=== PATIENT | male | born 1975 | race Caucasian/White ===

== ENCOUNTER 2019-10-25 14:04 | Emergency (ER) | payer OTHER, SELFPAY ==
[2019-10-25 14:05] VITALS: BP 129/71; PULSE 91; RESP 16; TEMP 37; O2SAT 97; BMI 31.7
--- NOTE | 2019-10-25 14:43 | ED.DCSUM_ITS ---
- ER Visit Summary Date of Service: 10/25/19 Chief Complaint: Lacerations to both feet and dorsum of his left hand History of Present Illness: The patient is a 44 M past medical history of depression and asthma. Tetanus is not up-to-date is been greater than 10 years. Patient was in the shower getting a shower realized the shower door was off track. When he went to fix it the door fell off the tract shattered on the floor the shower lacerating the dorsum of his left hand and both feet. No other injuries. This occurred within the last several hours. He denies any other complaints. Physical Examination: Middle-aged male no acute distress. Vital signs are stable afebrile. H EENT exam unremarkable. Neck nontender. No lymphadenopathy. No trauma. Lungs clear to auscultation. Heart regular rhythm no murmur. Abdomen soft nontender. Back nontender. Neurologically is awake alert with no focal motor or sensory deficits. The dorsum of his left hand has 2 ellipse type of lacerations on the dorsum of the hand over the extensor tendon of the left long and index fingers. He has full flexion extension to all digits of the left hand. He can extend against resistance. There is no signs of extensor tendon injury. There is small blood but no active bleeding or pulsa tile bleeding. There is no obvious foreign bodies. Right upper extremity is unremarkable. He is superficial lacerations to his feet on the pads and the dorsum. No obvious foreign bodies. Feet are neurovascular intact. These will not need to be repaired. Just cleaned and dressed. Test Results: None Emergency Department Course and Treatment: Patient and his discussed x-rays I do not feel that they be beneficial and he and his are comfortable those not being done. The wounds will be explored thoroughly looking for any signs of glass. A do not feel there is any foreign bodies. Laceration repair: Left hand dorsum. First laceration elliptical approximately 2-1/2 cm. Locally anesthetized with Xylocaine. Cleaned with Shur-Clens washed and explored. Irrigated. Closed using #5 5-0 Ethilon simple interrupted sutures. On the radial side of the extensor tendon of the left long finger there was a partial laceration of less than a quarter of the tendon. He had full range of motion. I did discuss this with both he and his . I did not see or feel any signs of foreign body or glass. Left hand dorsum second laceration repair. Elliptical. Proximately 3 cm. Local anesthetized with Xylocaine. Cleaned with Shur-Clens. Washed and explored. Irrigated. Closed using simple interrupted 5-0 Ethilon sutures. Treatment Plan: Wound care. Watch for any signs of infection or foreign body is seen return. Suture removal in 10 days. Keflex 1 pill 4 times a day for 5 days. Disposition: Discharge Impression: Left hand lacerations x2 Laceration repair to 2.5 cm left hand repaired by ER Left hand laceration 4 cm. Repair by ER Partial extensor tendon laceration of the left long finger. Superficial feet lacerations no repair This note was generated with [employer] dictation software. It may contain incorrect words, spelling, and punctuation that were not noted in review of the chart prior to signing ED Disposition - Plan for ED Patient: Referrals: Anmol Raza MD [Primary Care Provider] -
[2019-10-25] MEDS: Diphth,Pertuss(Acell),Tet Vac 0.5 ML Vial IM (14:48)
--- NOTE | 2019-10-25 16:11 | ED.DEP ---
ED Disposition - Plan for ED Patient: Disposition: Home or Assisted Living Instructions: LACERATION, Hand Prescriptions: Cephalexin [Keflex] 500 mg PO Q6 #20 cap Prescription Printed Referrals: Mary Cisneros DO [STAFF PHYSICIAN] - 10 Day for suture removal Additional Instructions: Ice elevate left hand to decrease pain and swelling. Tylenol and Motrin for pain. Keflex 1 pill 4 times a day for the next 5 days. Watch for any signs of infection such as pus, redness, red streaks or fever is seen return. I do not see any signs of foreign body at this time. Your left long finger has a very small laceration of the extensor tendon. If you would notice loss of extension of your left long finger this needs followed up and will need to be repaired. Suture removal in 10 days.
[2019-10-25 16:47] VITALS: RESP 16
--- NOTE | 2019-10-25 16:48 | ED.RN ---
REVIEWED D/C INSTRUCTIONS, FOLLOW UP CARE, PRESCRIPTION, AND S/S THAT WOULD WARRANT A RETURN TO THE ED WITH PT. PT VERBALIZED AN UNDERSTANDING AND DENIES FURTHER QUESTIONS FOR THIS RN. PT SKIN P/W/D, RESP EVEN AND UNLABORED, PT A&O X 3, NO DISTRESS NOTED. PT ASSISTED OUT OF ED IN WHEELCHAIR.
== END 2019-10-25 16:49 | disposition home or self-care (01) ==
PROVIDERS: Emergency Provider Emergency Medicine; Family Provider Family Medicine; PCP Family Medicine
DX: S66.323A Laceration of extensor muscle, fascia and tendon of left middle finger at wrist and hand level, initial encounter (principal); S61.412A Laceration without foreign body of left hand, initial encounter; S91.312A Laceration without foreign body, left foot, initial encounter; S91.311A Laceration without foreign body, right foot, initial encounter; W25.XXXA Contact with sharp glass, initial encounter; Y93.89 Activity, other specified; J45.909 Unspecified asthma, uncomplicated; F32.9 Major depressive disorder, single episode, unspecified
CPT/HCPCS: 12002; 90715; 99283; A4216

== ENCOUNTER 2021-04-23 22:24 | Emergency (ER) | payer OTHER, SELFPAY ==
[2021-04-23 22:25] VITALS: BP 139/87; PULSE 82; RESP 24; TEMP 36.3; O2SAT 96; BMI 31.7
--- NOTE | 2021-04-23 22:41 | EDS_ITS ---
HPI History of Present Illness Chief Complaint: Abd Pain Informant: patient and family Narrative Narrative: 46-year-old male states that he has had an umbilical hernia for some time. Tonight he was doing some strenuous activity and developed severe umbilical pain. He states that hernia appears different. It is hard. He cannot find a position of comfort. [facility] Medical History (Updated 04/23/21 @ 22:[address] Kavin Brian DO) Depression Umbilical hernia Home Medications budesonide-formoterol 2 puff IH BID 10/25/19 [History Last Taken Unknown] cephalexin 500 mg PO Q6 #20 cap 10/25/19 [Rx Last Taken Unknown] cholecalciferol (vitamin D3) 2,000 unit PO DAILY 10/25/19 [History Last Taken Unknown] duloxetine 60 mg PO DAILY 10/25/19 [History Last Taken Unknown] lamotrigine 200 mg PO DAILY 10/25/19 [History Last Taken Unknown] Allergy/AdvReac Type Severity Reaction Status Date / Time No Known Allergies Allergy Verified 10/25/19 14:07 Social History (Updated 04/23/21 @ 22:[address] Kavin Brian DO) Smoking Status: Never smoker substance use type: does not use ROS ROS ED Constitutional Constitutional ED: Denies chills or weight loss Eyes Eyes: Denies change in vision or diplopia ENT ENT ED: Denies ear pain, rhinorrhea or sore throat Cardiovascular Cardiovascular: Denies chest pain, orthopnea, palpitations or racing heartbeat Respiratory/Chest Respiratory/Chest: Denies cough, dyspnea or orthopnea Gastrointestinal Gastrointestinal: Reports abdominal pain; Denies diarrhea, nausea or vomiting Genitourinary Genitourinary ED: Denies dysuria, hematuria or urinary frequency Musculoskeletal Musculoskeletal: Denies arthralgias or myalgias Integumentary Denies abscess or rash Neurologic Neurologic: Denies headache(s) or weakness Psychiatric Psychiatric: Denies anxiety, depression, suicidal ideation or suicidal thoughts Endocrine Endocrinology: Denies polydipsia, polyphagia or polyuria Allergic/Immunologic Allergic/Immunologic ED: Denies mouth swelling, tongue swelling or urticaria EXAM Physical Exam Const Vital Signs: 04/23/21 22:25 Temperature 97.4 F L Temperature Source Temporal Pulse Rate 82 Respiratory Rate 24 H Blood Pressure 139/87 H Blood Pressure Mean 104 Pulse Ox 96 Oxygen Delivery Method Room Air Positive well nourished and well developed General Appearance ED: well developed HEENT Reports normocephalic, head/scalp atraumatic and moist mucous membranes Eyes PERRL and EOMs intact bilaterally Neck no lymphadenopathy, supple and no JVD Resp normal respiratory effort and clear to auscultation bilaterally Cardio regular rate, regular rhythm and no murmurs GI GI Narrative: There is a umbilical hernia with purplish discoloration. It is firm. I am not able to easily reduce it at the bedside at this time. Palpation: soft Back/Spine no CVA tenderness and normal ROM Extremity normal to inspection General Extremety ED: Negative for edema General Extremity: Negative for edema Neuro oriented x3 and CN's II-XII intact bilaterally Sensorium / Orientation: alert Motor Exam: strength 5/5 throughout Psych mental status grossly normal Mood & Affect: Negative for depressed or tearful Skin no rashes or lesions noted and no wounds MDM MDM MDM Narrative Medical decision making narrative: Patient was given Dilaudid and Ativan and Zofran. After this I attempted to reduce the hernia. Hernia was reduced with gentle direct pressure. I will order abdominal binder. Patient will be referred to general surgery. Discharge Plan Triage Chief Complaint: Abd Pain ED Provider: Kavin Brian Dx/Rx/DC Orders Clinical Impression: Hernia, umbilical Instructions: ED Hernia (Adult) Prescriptions: No Action budesonide-formoterol 6 GM HFA aerosol inhaler 2 puff IH BID RF: 0 cholecalciferol (vitamin D3) 2,000 UNIT capsule 2,000 unit PO DAILY RF: 0 lamotrigine 200 MG tablet extended release 24hr 200 mg PO DAILY RF: 0 duloxetine 60 MG capsule, delayed rel sprinkle 60 mg PO DAILY RF: 0 cephalexin 500 MG capsule 500 mg PO Q6 Qty: 20 RF: 0 Primary Care Provider: Anmol Raza Referrals: Markus Hooper MD [STAFF PHYSICIAN] - As soon as possible Anmol Raza MD [Primary Care Provider] - Disposition Disposition: Home, Self Care
[2021-04-23] MEDS: Ondansetron 4 MG/2 ML Vial IV (22:47)
[2021-04-23] MEDS: LORazepam 2 MG/ML Syringe 1 MG IV (22:49)
[2021-04-23] MEDS: HYDROmorphone 1 MG/ML Syringe IV (22:50)
[2021-04-23 23:43] VITALS: BP 121/82; PULSE 76; RESP 14; O2SAT 93
== END 2021-04-23 23:44 | disposition home or self-care (01) ==
LOC: ED 23:16
PROVIDERS: Emergency Provider Emergency Medicine; PCP Family Medicine
DX: K42.9 Umbilical hernia without obstruction or gangrene (principal)
CPT/HCPCS: 96374; 96375; 99283; A4216; J2405

== ENCOUNTER 2021-05-10 07:36 | Day surgery (SDC) | payer OTHER, SELFPAY ==
[2021-04-29 14:54] VITALS: BMI 31.7
--- NOTE | 2021-05-10 07:21 | EKG12_ITS ---
Test Reason : PRE OP Blood Pressure : / mmHG Vent. Rate : 088 BPM Atrial Rate : 088 BPM P-R Int : 166 ms QRS Dur : 086 ms QT Int : 360 ms P-R-T Axes : 054 074 049 degrees QTc Int : 435 ms Normal sinus rhythm Normal ECG No previous ECGs available Confirmed by GIULIANO GARCIA, CARLOS MANUEL ([id number]), makeup editor GURMEET VARELA ([id number]) on 05/14/2021 8:02:23 AM Referred By: Nahomy Ricketts Confirmed By:CARLOS MANUEL NOBLES MD
[2021-05-10] MEDS: Lactated Ringers 1,000 ML 100 ML IV ×2 (08:10→09:56)
[2021-05-10 08:15] VITALS: BP 122/80; PULSE 82; RESP 14; TEMP 36.1; O2SAT 96; BMI 32.4
--- NOTE | 2021-05-10 08:18 | HP.PCM_ITS ---
History and Physical Date of Admission: 05/10/21 Date of Service: 04/29/21 MR#:[id number] Acct:[id number] Name: UZMA WATERS :1975 Age/Sex: 46/M Rep #:[id number] Provider:Dr. Nahomy Ricketts MD Location:[facility] Status:Signed Intake Vital Signs 04/29/21 14:53 04/29/21 14:54 Height 5 ft 9 in Weight: 227 lb 2 oz BMI 33.5 31.7 BP 121/87 H Blood Pressure Location Rt brachial Position Sitting Respiration 18 Pulse 101 H Pulse Source NIBP Temp 98.1 F Temp Source Temporal Pulse Oximetry (%) 96 Oxygen Delivery Method room air Intake Visit Reasons: Hernia Chief Complaint: umbilical hernia Cafeteria Cashier Required: No Is patient in pain?: No Allergies No Known Allergies Allergy (Verified 04/29/21 14:53) Medications budesonide-formoterol 2 puff IH BID 10/25/19 [History Confirmed 04/29/21] cholecalciferol (vitamin D3) 2,000 unit PO DAILY 10/25/19 [History Confirmed 04/29/21] duloxetine 60 mg PO DAILY 10/25/19 [History Confirmed 04/29/21] lamotrigine 200 mg PO DAILY 10/25/19 [History Confirmed 04/29/21] PFSH Medical History (Updated 04/29/21 @ 14:51 by Mila Miles) Depression Sleep apnea Umbilical hernia Surgical History (Updated 04/29/21 @ 14:51 by Mila Miles) History of adenoidectomy History of sinus surgery Family History (Updated 04/29/21 @ 14:52 by Mila Miles) Father Diabetes Cancer esophageal Mother Diabetes Hypertension Thyroid disorder Rheumatoid arthritis Social History (Updated 04/23/21 @ 22:[address] Kavin Brian DO) Smoking Status: Never smoker substance use type: does not use HPI HPI HPI: UZMA WATERS, is a 46 M who presents to the office today for umbilical hernia. Patient states he has noticed for about 3 years but has not caused him issues if he was not touching it. Patient has reduced it previously but it was quite tender so he stopped doing that. Patient did go to the ER on 04/23/2021 due to increased pain at the umbilicus patient states he was lifting something heavy that day. Patient denies any nausea or vomiting during that time. In the ER they were able to reduce it. Patient has been wearing abdominal binder since the ER visit. ROS General General: No weight change or fatigue Psych Psychiatric: Yes depression; No anxiety Resp Respiratory: No shortness of breath, Yes sleep apnea, No cough, No COPD, Yes asthma, No emphysema and No wheezing Gastro Gastrointestinal: Yes abdominal pain, No nausea or vomiting, No diarrhea, No constipation, No blood in stool, No acid reflux, No hemorrhoids, No ulcers, No gallbladder problem and No black,tarry stools Exam Const General: cooperative, healthy appearing, comfortable and no acute distress Neck Neck: normal visual inspection Resp Effort & Inspection: normal respiratory effort Cardio Rate: regular rate GI Inspection: non-distended Palpation: soft, no guarding, hernia (Umbilical less than 1 cm) and tender (Mild at umbilical hernia when reducing) Skin General: no rashes or lesions noted Neuro General: patient oriented x3 Psych Affect: normal affect COVID (Procedure Consent) Procedure Criteria Procedure Criteria: Yes Elective The surgeon/proceduralist and patient have discussed in detail the risk of exposure to and/or potential harm posed by the COVID-19 virus with having a surgery/procedure at this time versus the risk of delaying the surgery/procedure. It is not possible to know either the risk of delaying the surgery or procedure or chance of getting an infection with perfect accuracy, but a joint decision was made between the patient and the surgeon/proceduralist to proceed at this time with the scheduled surgery/procedure as indicated on the consent form. Assessment and Plan Assessment and Plan (1) Hernia, umbilical: Status: Acute Plan - Dr. Nahomy Ricketts MD: Plan to do an umbilical herniorrhaphy with mesh. Reviewed the procedure with the patient including the risks, including but not limited to infection, bleeding, injury to the small bowel, and recurrence. All questions were answered. Patient no further question this time. Nahomy Ricketts M.D. Pager: [phone] [facility] [address] [place] [address], [address] [place] [address] Office: [phone] Coding Level of Care Code Off vis,new,level 3 Diagnoses Hernia, umbilical K42.9 04/30/21 0800<Electronically signed by Nahomy Ricketts MD>Date Nahomy Ricketts MD
[2021-05-10 08:39] LABS: Hemoglobin 14.7 g/dL (13.0-16.5); Mean Corp Hgb Conc 32.7 g/dL (32-36); Mean Corpuscular Hgb 27.1 pg (27.0-32.0); Mean Platelet Vol. 8.4 fl (6.2-12.0); Platelet Count 343 K/mm3 (150-450); RBC Distribution Width CV 12.8 % (11.6-14.6); RBC Distribution Width SD 38.6 fl (35.1-43.9); Red Blood Count 5.42 M/mm3 (4.6-6.2); White Blood Count 7.2 K/mm3 (4.4-11.0)
[2021-05-10] MEDS: Cefazolin 2 GM in 0.9% Normal Saline 100 ML IV (08:40)
--- NOTE | 2021-05-10 09:00 | HERN_PTH ---
PATIENT: UZMA WATERS LOC[place] [facility] [place][id number] AGE/SX: 46/M ROOM: RE05/10/[address]: Dr. Nahomy Ricketts MD : 1975 BED: DIS: 05/10/2021 SPEC #: [id number] RECD: 05/10/21 10:09 STATUS: MIRA RETk #: [id number] MARIKA: 05/10/21 09:[address]: Nahomy Ricketts DEPT: SURGICAL PATHOLOGY RECD BY: Keli Wilson ENTERED: 05/10/21 13:32 SP TYPE: Hernia OTHR DR: Dr. Anmol Raza MD Tissues: HERNIA Procedures: Surgery Specimen Level II HEADER OPERATION: Umbilical hernia repair with mesh PRE-OP DIAGNOSIS: Umbilical hernia TISSUE SUBMITTED: Hernia sac MICROSCOPIC DIAGNOSIS Hernia sac: Fragments of fibroadipose and fibroconnective tissue, consistent with hernia sac. SJ:jose roberto 05/13/2021 MICROSCOPIC DESCRIPTION Slides are reviewed. GROSS DESCRIPTION Received in fixative is one container labeled with the patient's name and designated hernia sac. The specimen consists of multiple irregular fragments of glistening pink-yellow fibrofatty tissue that in aggregate measure 4 x 3 x 0.2 cm. Senior Associate sections are submitted in one cassette. / AM:jose roberto 05/10/21 TC:5 CPT: 51677
--- NOTE | 2021-05-10 09:37 | PCM.OPRPT ---
Report of Operation Date of Procedure: 05/10/21 Pre-Operative Diagnosis: Umbilical hernia reducible Post-Operative Diagnosis: Same Surgery/Procedure Performed:: Umbilical hernia repair with mesh Surgeon: Nahomy Ricketts certified executive chef: Yany Tavares Type of Anesthesia: General/Supplemental Anesthesiologist: Alvarze Davis Special Medications: Ancef 2 g IV x1 Specimen's removed: Hernia sac Estimated Blood Loss (mL): < 10 cc Fluids Replaced: Per anesthesia Description of Procedure: Patient was brought into the room placed supine on the operating table. Correct patient, procedure, site, positioning, special, was verified prior to procedure. General anesthesia was induced. The abdomen was prepped draped in usual sterile fashion. A curvilinear incision was made below the umbilicus with a 15 blade scalpel. This was deepened with electrocautery. A hemostat was used to go around the stalk of the umbilicus and Metzenbaum scissors was used to carefully divide the hernia sac from the skin of the umbilicus. The fascia around the hernia defect was cleared and abdominal adipose tissue was reduced back in the abdomen. The hernia defect measured 1.5 cm x 1.[address] hernia patch 6.4 cm diameter (Lot [id number] REF [id number]) was used. The tails of the mesh was secured laterally with 1-0 Nurolon suture. Additional 1-0 Nurolon sutures were placed to secure the superior and inferior mesh and close fascia in a [id number]. The wound was irrigated with saline. Hemostasis was assured. The skin of the umbilicus was secured to the fascia using 3-0 Vicryl suture interrupted. The incision was closed with 3-0 Vicryl subdermal interrupted sutures and the skin was closed with interrupted 4-0 Monocryl sutures. Steri-Strips and Tegaderm and OpSite were placed over the incision once sterile cotton balls were placed in the umbilicus. Patient was extubated. Patient tolerated procedure well and was taken to the postanesthesia care unit in stable condition. Grafts/Implants Used: Ventralex ST hernia patch 6.4 cm diameter (Lot [id number], REF [id number]) Complications none
[2021-05-10] MEDS: Bupivacaine Mpf 0.5% 30 ML VIAL (09:40)
--- NOTE | 2021-05-10 09:40 | EX.PCM.DISCH ---
Discharge Instructions Diet Discharge Diet: Light diet - advance as tolerated Activity May shower in (days): 5 (Keep umbilical dressing clean dry and intact for 5 days. Okay to tape off with a Ziploc bag to shower. Or lower shower and upper sponge bath.) Lifting Restrictions: no lifting >20 lbs x 2 wks, no strenuous exercise for 4 wks Additional Activity Instructions:: - Dressing / Incision Call your doctor if your incision/area has: Continuous Slow Oozing, Sudden Increased Bleeding, Increased Pain/ Swelling, Increased Redness, Foul Smelling Discharge and Swelling at the incision site Call your doctor if you observe: Fever of 101 or Higher Remove Dressing in: 5 days (After 5 days okay to remove surgical dressing. Place cotton ball or rolled up gauze in bellybutton and retape daily for 2 more days.) Cleanse incision/area with: Do not get Incision Wet (for 5 days) Additional Dressing/Incision Instructions:: Steri-Strips will fall off in 7 to 10 days, if they do not fall off okay to remove after 10 days. Follow Up Care Please Follow Up With: Nahomy Ricketts MD When: Call the office for a follow-up appointment 2 weeks; after 5 PM and on the weekends call [phone] with any concerns. Test Results: Test results from this visit will be discussed in further detail at your follow-up appointment, if applicable. Discharge Plan Admission Attending Provider: Nahomy Ricketts Primary Care Provider: Anmol Raza Instructions Additional Instructions / Restrictions: Okay to take ibuprofen 400-600 mg PO q6hr PRN along with the Percocet. Avoid Tylenol since there is already Tylenol in the Percocet. Take all pain meds with food. Percocet can cause constipation recommend taking daily stool softener (i.e. Colace/docusate) while taking the pain meds. Recommend starting some MiraLAX in 1 to 2 days if no bowel movement. If still no bowel movement the following day recommend taking magnesium citrate half the bottle and waiting 4-6 hours if still no results take the other half the bottle. Discharge Orders/Prescriptions Prescriptions: New oxycodone-acetaminophen [Endocet] 5-325 mg tablet 1 - 2 tab PO Q6H PRN (Reason: pain) 3 Days Qty: 15 RF: 0 Continued budesonide-formoterol 6 GM HFA aerosol inhaler 2 puff IH BID RF: 0 cholecalciferol (vitamin D3) 2,000 UNIT capsule 2,000 unit PO DAILY RF: 0 lamotrigine 200 MG tablet extended release 24hr 200 mg PO QHS RF: 0 duloxetine 60 MG capsule, delayed rel sprinkle 60 mg PO DAILY RF: 0 Referrals / Follow Up: Anmol Raza MD [Primary Care Provider] - Disposition Disposition (needs filled in before D/C Order can be placed): Home, Self Care
[2021-05-10 09:53] VITALS: BP 122/80; BP 129/86; PULSE 86; RESP 16; TEMP 36.2; O2SAT 93
[2021-05-10 10:00] VITALS: BP 122/80; BP 124/94; PULSE 93; RESP 16; O2SAT 96
[2021-05-10 10:15] VITALS: BP 122/80; BP 128/86; PULSE 89; RESP 16; O2SAT 97
[2021-05-10 10:26] VITALS: BP 122/80; PULSE 87; RESP 16; TEMP 36.1; O2SAT 96
[2021-05-10 11:27] VITALS: BP 122/80; BP 137/96; PULSE 79; RESP 16; TEMP 36.6; O2SAT 97
== END 2021-05-10 11:28 | disposition home or self-care (01) ==
LOC: SDC 07:36 → AC 07:38
PROVIDERS: Anesthesiology; PCP Family Medicine; Referring Provider Surgery; Visit Provider Surgery
PROC: (CPT 49585; principal; 2021-05-10 08:45)
DX: K42.9 Umbilical hernia without obstruction or gangrene (principal); G47.30 Sleep apnea, unspecified; F32.9 Major depressive disorder, single episode, unspecified; Z79.899 Other long term (current) drug therapy
CPT/HCPCS: 00830; 49585; 85027; 88302; 93005; C1781; J7120; J2405

== ENCOUNTER → 2021-09-12 08:20 | Outpatient (CLI) | payer OTHER, SELFPAY ==
--- NOTE | 2021-09-12 17:35 | RAD_ITS ---
STUDY: XR Hand Min 3 Views REASON FOR EXAM: Male, 46 years old. PAINTechnologist Notes PAIN IN PALM OF HAND AND AROUND THUMB AND INDEX FINGER AFTER WRESTLING WITH KIDS AROUND A MONTH AGO. TECHNIQUE: XR Hand Min 3 Views COMPARISON: None. FINDINGS: Normal radiocarpal articulation. Normal distal radioulnar joint. Normal visualized carpal bones. Normal carpal articulations Normal carpometacarpal articulation of the thumb. Normal second through fifth carpometacarpal joints. Normal metacarpi. Normal metacarpophalangeal joint of the thumb. Normal interphalangeal joint of the thumb. Normal proximal and distal phalanges of the thumb. Normal metacarpophalangeal joints of the second through fifth fingers. Normal proximal and distal interphalangeal joints of the second through fifth fingers. Normal phalanges of the second through fifth fingers. The soft tissue structures are unremarkable. RAD/Hand Min 3 Views IMPRESSION: There are no acute findings. Electronically Signed: Reggie Rizvi MD at 20:00 EST , Service support ,
== END ==
PROVIDERS: PCP Family Medicine
DX: S69.92XD Unspecified injury of left wrist, hand and finger(s), subsequent encounter (principal); X58.XXXD Exposure to other specified factors, subsequent encounter; Y93.83 Activity, rough housing and horseplay; Y92.9 Unspecified place or not applicable; Y99.9 Unspecified external cause status
CPT/HCPCS: 73130

== ENCOUNTER → 2021-11-03 14:17 | Outpatient (REF) | payer OTHER, SELFPAY | LOC: LABSPEC 14:17 | PROVIDERS: PCP Family Medicine; Visit Provider Nurse Practitioner Family | DX: U07.1 COVID-19 (principal) | CPT/HCPCS: 87635; U0003; U0005 ==

== ENCOUNTER 2022-02-01 12:32 | Outpatient (CLI) | payer OTHER, SELFPAY ==
[2022-02-01 12:42] LABS: Absolute Lymphocyte Count 2.31 X10^3/uL (0.83-4.51); Absolute Neutrophil Count 3.9 X10^3/uL (2.0-7.7); Basophil# 0.05 X10^3/uL; Basophil% 0.7 % (0-1); Eosinophil# 0.66 X10^3/uL; Eosinophils% 8.9 % (0-5); Hematocrit 44.8 % (40-54); Hemoglobin 15.1 g/dL (13.0-16.5); Lymphocyte # 2.31 X10^3/ul (0.83-4.51); Lymphocyte % 31.2 % (19-41); Mean Corp Hgb Conc 33.7 g/dL (32-36); Mean Corpuscular Hgb 27.6 pg (27.0-32.0); Mean Corpuscular Volume 81.8 fL (80-94); Mean Platelet Vol. 8.9 fl (6.2-12.0); Monocyte% 6.8 % (0-10); NRBC Flagged by Analyzer 0 % (0-5); Neutrophil # 3.86 X10^3/uL (2.7-7.7); Neutrophil % 52.1 % (47-70); Platelet Count 356 K/mm3 (150-450); RBC Distribution Width CV 12.3 % (11.6-14.6); RBC Distribution Width SD 36.6 fl (35.1-43.9); Red Blood Count 5.48 M/mm3 (4.6-6.2); White Blood Count 7.4 K/mm3 (4.4-11.0)
[2022-02-01 13:03] LABS: AST(SGOT) 20 U/L (15-37); Alanine Aminotransfer ALT/SGPT 33 U/L (16-61); Albumin, Serum 3.7 g/dL (3.2-5.0); Alkaline Phosphatase 87 U/L (45-117); Anion Gap 4 (5-15); BUN 18 mg/dL (7-18); BUN/Creat Ratio 16.7 RATIO (10-20); Calcium,Total 9.3 mg/dL (8.5-10.1); Chloride 107 mmol/L (98-107); Cholesterol 220 mg/dL (200); Creatinine, Serum 1.08 mg/dL (0.70-1.30); EST Glomerular Filtration Rate 77 mL/min (>60); Est Glom Filt Rate - Afr Amer 93 mL/min (>60); Globulin 3.7 g/dL (2.2-4.2); Glucose 88 mg/dL (74-106); High Density Lipoprotein 41 mg/dL; PSA,Total - Annual Screen 0.45 ng/mL (0.00-4.00); Potassium 4.3 mmol/L (3.5-5.1); Protein, Total 7.4 g/dL (6.4-8.2); Sodium Level 137 mmol/L (136-145); Triglycerides 121 mg/dL; Very Low Density Lipoprotein 24 mg/dL (5-40)
[2022-02-01 13:07] LABS: Hemoglobin A1c 5.5 % (3.8-5.6)
== END 2022-02-01 23:59 | disposition home or self-care (01) ==
LOC: LABSPEC 12:33
PROVIDERS: PCP Family Medicine; Referring Provider Nurse Practitioner Family; Visit Provider Nurse Practitioner Family
DX: R53.83 Other fatigue (principal); E78.5 Hyperlipidemia, unspecified; E66.9 Obesity, unspecified
CPT/HCPCS: 80053; 80061; 83036; 84153; 85025; G0103

== ENCOUNTER → 2023-07-07 | Outpatient (CLI) | payer OTHER, SELFPAY ==
[2023-07-07 10:54] LABS: Absolute Lymphocyte Count 2.14 X10^3/uL (0.83-4.51); Absolute Neutrophil Count 3.1 X10^3/uL (2.0-7.7); Basophil# 0.05 X10^3/uL; Basophil% 0.8 % (0-1); Eosinophils% 6.6 % (0-5); Hemoglobin 16.1 g/dL (13.0-16.5); Lymphocyte # 2.14 X10^3/ul (0.83-4.51); Lymphocyte % 35.5 % (19-41); Mean Corp Hgb Conc 32.2 g/dL (32-36); Mean Corpuscular Hgb 27.8 pg (27.0-32.0); Mean Corpuscular Volume 86.4 fL (80-94); Mean Platelet Vol. 8.6 fl (6.2-12.0); Monocyte# 0.36 X10^3/uL; NRBC Flagged by Analyzer 0 % (0-5); Neutrophil # 3.05 X10^3/uL (2.7-7.7); Neutrophil % 50.6 % (47-70); Platelet Count 456 K/mm3 (150-450); RBC Distribution Width CV 13.2 % (11.6-14.6); RBC Distribution Width SD 41.6 fl (35.1-43.9); Red Blood Count 5.79 M/mm3 (4.6-6.2)
[2023-07-07 11:29] LABS: ALB/GLOB Ratio 1.4 RATIO (0.9-2.4); AST(SGOT) 39 U/L (15-37); Alanine Aminotransfer ALT/SGPT 91 U/L (16-61); Albumin, Serum 3.8 g/dL (3.2-5.0); Alkaline Phosphatase 72 U/L (45-117); Anion Gap 8 (5-15); BUN 14 mg/dL (7-18); BUN/Creat Ratio 13.2 RATIO (10-20); Calcium,Total 8.8 mg/dL (8.5-10.1); Chloride 101 mmol/L (98-107); Cholesterol 197 mg/dL (200); Creatinine, Serum 1.06 mg/dL (0.70-1.30); EST Glomerular Filtration Rate 78 mL/min (>60); Est Glom Filt Rate - Afr Amer 95 mL/min (>60); Free T3 2.7 pg/mL (2.18-3.98); Globulin 2.8 g/dL (2.2-4.2); Glucose 118 mg/dL (74-106); High Density Lipoprotein 45 mg/dL; Potassium 4.3 mmol/L (3.5-5.1); Protein, Total 6.6 g/dL (6.4-8.2); Sodium Level 139 mmol/L (136-145); T4 Free Direct 1.15 ng/dL (0.76-1.46); Thyroid Stim Hormone (TSH) 3.33 uIU/mL (0.358-3.74); Triglycerides 166 mg/dL; Very Low Density Lipoprotein 33 mg/dL (5-40)
[2023-07-07 11:58] LABS: Hemoglobin A1c 5.3 % (3.8-5.6)
[2023-07-07 14:54] LABS: Vitamin B12 839 pg/mL (211-911); Vitamin D,25 Hydroxy 65.2 ng/mL
[2023-07-09 05:07] LABS: G6PD Quant Test 206 (127-427); PSA, Total 0.5 ng/mL (0.0-4.0); Red Blood Cell Count Test/G6PD 5.68 x10E6/uL (4.14-5.80)
== END | disposition home or self-care (01) ==
LOC: LABSPEC 10:31
PROVIDERS: PCP Family Medicine; Referring Provider Nurse Practitioner Family; Visit Provider Nurse Practitioner Family
DX: M79.18 Myalgia, other site (principal); R53.83 Other fatigue; B60.09 Other babesiosis; F52.21 Male erectile disorder; E55.9 Vitamin D deficiency, unspecified; F32.A Depression, unspecified; Z13.1 Encounter for screening for diabetes mellitus; Z13.6 Encounter for screening for cardiovascular disorders
CPT/HCPCS: 80053; 80061; 82306; 82607; 82627; 82955; 83036; 84153; 84403; 84439; 84443; 84481; 85025; 82626

== ENCOUNTER → 2024-04-21 08:06 | Outpatient (REF) | payer OTHER, SELFPAY ==
[2024-04-21 08:30] LABS: Absolute Lymphocyte Count 1.69 X10^3/uL (0.83-4.51); Absolute Neutrophil Count 3.5 X10^3/uL (2.0-7.7); Basophil# 0.06 X10^3/uL; Eosinophil# 0.51 X10^3/uL; Eosinophils% 8.2 % (0-5); Hematocrit 45.8 % (40-54); Hemoglobin 15.3 g/dL (13.0-16.5); Lymphocyte # 1.69 X10^3/ul (0.83-4.51); Lymphocyte % 27.1 % (19-41); Mean Corp Hgb Conc 33.4 g/dL (32-36); Mean Corpuscular Hgb 28.8 pg (27.0-32.0); Mean Corpuscular Volume 86.1 fL (80-94); Mean Platelet Vol. 8.8 fl (6.2-12.0); Monocyte# 0.43 X10^3/uL; Monocyte% 6.9 % (0-10); NRBC Flagged by Analyzer 0 % (0-5); Neutrophil # 3.51 X10^3/uL (2.7-7.7); Neutrophil % 56.3 % (47-70); Platelet Count 325 K/mm3 (150-450); RBC Distribution Width CV 12.2 % (11.6-14.6); RBC Distribution Width SD 38.4 fl (35.1-43.9); Red Blood Count 5.32 M/mm3 (4.6-6.2); White Blood Count 6.2 K/mm3 (4.4-11.0)
[2024-04-21 12:22] LABS: ALB/GLOB Ratio 1.5 RATIO (0.9-2.4); AST(SGOT) 22 U/L (15-37); Alanine Aminotransfer ALT/SGPT 38 U/L (16-61); Albumin, Serum 4.4 g/dL (3.2-5.0); Alkaline Phosphatase 62 U/L (45-117); Anion Gap 10 (5-15); BUN 17 mg/dL (7-18); BUN/Creat Ratio 12.3 RATIO (10-20); Calcium,Total 9.7 mg/dL (8.5-10.1); Chloride 105 mmol/L (98-107); Cholesterol 250 mg/dL (200); Creatinine, Serum 1.38 mg/dL (0.70-1.30); EST Glomerular Filtration Rate 58 mL/min (>60); Est Glom Filt Rate - Afr Amer 70 mL/min (>60); Free T3 2.9 pg/mL (2.18-3.98); Glucose 103 mg/dL (74-106); High Density Lipoprotein 51 mg/dL; Luteinizing Hormone 3.1 mIU/mL; Potassium 4.2 mmol/L (3.5-5.1); Protein, Total 7.4 g/dL (6.4-8.2); Sodium Level 142 mmol/L (136-145); T4 Free Direct 1.13 ng/dL (0.76-1.46); Triglycerides 100 mg/dL; Very Low Density Lipoprotein 20 mg/dL (5-40)
[2024-04-21 12:54] LABS: Hemoglobin A1c 4.6 % (3.8-5.6)
[2024-04-27 12:09] LABS: Testosterone, % Free 3.18 % (1.50-4.20); Testosterone, Free 11.38 ng/dL (5.00-21.00); Testosterone, Total 358 ng/dL (264-916)
== END ==
LOC: LABSPEC 08:06
PROVIDERS: PCP Family Medicine; Visit Provider Nurse Practitioner Family
DX: M79.18 Myalgia, other site (principal); A44.0 Systemic bartonellosis; E78.5 Hyperlipidemia, unspecified; E88.819 Insulin resistance, unspecified; Z13.1 Encounter for screening for diabetes mellitus; R53.83 Other fatigue
CPT/HCPCS: 80053; 80061; 82627; 83002; 83036; 84402; 84403; 84439; 84443; 84481; 85025; 82626

== ENCOUNTER → 2024-08-25 | Outpatient (CLI) | payer OTHER, SELFPAY ==
[2024-08-25 17:02] LABS: ALB/GLOB Ratio 1.6 RATIO (0.9-2.4); AST(SGOT) 20 U/L (15-37); Alanine Aminotransfer ALT/SGPT 30 U/L (16-61); Albumin, Serum 4.4 g/dL (3.2-5.0); Alkaline Phosphatase 55 U/L (45-117); Anion Gap 5 (5-15); BUN 18 mg/dL (7-18); BUN/Creat Ratio 15.3 RATIO (10-20); CRP < 2.90 mg/L (0.0-3.0); Calcium,Total 9.5 mg/dL (8.5-10.1); Chloride 108 mmol/L (98-107); Creatinine, Serum 1.18 mg/dL (0.70-1.30); EST Glomerular Filtration Rate 69 mL/min (>60); Est Glom Filt Rate - Afr Amer 84 mL/min (>60); Globulin 2.8 g/dL (2.2-4.2); Glucose 98 mg/dL (74-106); Potassium 4.4 mmol/L (3.5-5.1); Protein, Total 7.2 g/dL (6.4-8.2); Sodium Level 137 mmol/L (136-145)
[2024-08-25 17:06] LABS: Absolute Lymphocyte Count 2.14 X10^3/uL (0.83-4.51); Absolute Neutrophil Count 4.2 X10^3/uL (2.0-7.7); Basophil# 0.04 X10^3/uL; Basophil% 0.6 % (0-1); Eosinophil# 0.26 X10^3/uL; Eosinophils% 3.7 % (0-5); Hematocrit 45.8 % (40-54); Hemoglobin 15.1 g/dL (13.0-16.5); Lymphocyte # 2.14 X10^3/ul (0.83-4.51); Lymphocyte % 30.1 % (19-41); Mean Corpuscular Hgb 27.9 pg (27.0-32.0); Mean Corpuscular Volume 84.5 fL (80-94); Mean Platelet Vol. 9.1 fl (6.2-12.0); Monocyte# 0.44 X10^3/uL; Monocyte% 6.2 % (0-10); NRBC Flagged by Analyzer 0 % (0-5); Neutrophil # 4.22 X10^3/uL (2.7-7.7); Neutrophil % 59.1 % (47-70); Platelet Count 337 K/mm3 (150-450); RBC Distribution Width CV 12.3 % (11.6-14.6); RBC Distribution Width SD 37.6 fl (35.1-43.9); Red Blood Count 5.42 M/mm3 (4.6-6.2); White Blood Count 7.1 K/mm3 (4.4-11.0)
[2024-08-25 17:08] LABS: Erythrocyte Sedimentation Rate < 1 mm/hr (0-20)
[2024-08-29 16:09] LABS: PSA, Total 1.1 ng/mL (0.0-4.0)
== END | disposition home or self-care (01) ==
LOC: LABSPEC 15:43
PROVIDERS: PCP Family Medicine; Referring Provider Nurse Practitioner Family; Visit Provider Nurse Practitioner Family
DX: A44.0 Systemic bartonellosis (principal); R53.83 Other fatigue; N41.0 Acute prostatitis; N94.10 Unspecified dyspareunia; N52.9 Male erectile dysfunction, unspecified
CPT/HCPCS: 80053; 82627; 84153; 84403; 85025; 85652; 86140; 82626

== ENCOUNTER → 2024-09-28 | Outpatient (CLI) | payer OTHER, SELFPAY ==
[2024-09-28 16:46] LABS: Absolute Lymphocyte Count 2.14 X10^3/uL (0.83-4.51); Absolute Neutrophil Count 5.5 X10^3/uL (2.0-7.7); Basophil# 0.04 X10^3/uL; Basophil% 0.5 % (0-1); Eosinophil# 0.33 X10^3/uL; Eosinophils% 3.8 % (0-5); Hematocrit 44.2 % (40-54); Hemoglobin 14.7 g/dL (13.0-16.5); Lymphocyte # 2.14 X10^3/ul (0.83-4.51); Lymphocyte % 24.7 % (19-41); Mean Corp Hgb Conc 33.3 g/dL (32-36); Mean Corpuscular Hgb 28.6 pg (27.0-32.0); Monocyte# 0.63 X10^3/uL; Monocyte% 7.3 % (0-10); NRBC Flagged by Analyzer 0 % (0-5); Neutrophil # 5.49 X10^3/uL (2.7-7.7); Neutrophil % 63.5 % (47-70); Platelet Count 301 K/mm3 (150-450); RBC Distribution Width CV 12.7 % (11.6-14.6); RBC Distribution Width SD 39.5 fl (35.1-43.9); Red Blood Count 5.14 M/mm3 (4.6-6.2); White Blood Count 8.7 K/mm3 (4.4-11.0)
[2024-09-28 16:49] LABS: Erythrocyte Sedimentation Rate 3 mm/hr (0-20)
[2024-09-28 17:00] LABS: ALB/GLOB Ratio 1.5 RATIO (0.9-2.4); AST(SGOT) 22 U/L (15-37); Alanine Aminotransfer ALT/SGPT 25 U/L (16-61); Albumin, Serum 4.1 g/dL (3.2-5.0); Alkaline Phosphatase 52 U/L (45-117); Anion Gap 5 (5-15); BUN 18 mg/dL (7-18); BUN/Creat Ratio 15.3 RATIO (10-20); Chloride 107 mmol/L (98-107); Creatinine, Serum 1.18 mg/dL (0.70-1.30); EST Glomerular Filtration Rate 69 mL/min (>60); Est Glom Filt Rate - Afr Amer 84 mL/min (>60); Ferritin 89 ng/mL (26-388); Globulin 2.8 g/dL (2.2-4.2); Glucose 91 mg/dL (74-106); Iron 37 ug/dL (65-175); Magnesium 2.2 mg/dL (1.6-2.6); Potassium 4.5 mmol/L (3.5-5.1); Protein, Total 6.9 g/dL (6.4-8.2); Sodium Level 138 mmol/L (136-145); Troponin-I HS 3 pg/mL (3.0-78.0)
[2024-10-01 08:08] LABS: CRP, High Sensitivity 9.37 mg/L (0.00-3.00)
[2024-10-03 01:06] LABS: Testosterone Free 15.8 pg/mL (7.2-24.0)
== END | disposition home or self-care (01) ==
LOC: LABSPEC 16:05
PROVIDERS: PCP Family Medicine; Referring Provider Nurse Practitioner Family; Visit Provider Nurse Practitioner Family
DX: G47.00 Insomnia, unspecified (principal); R51.9 Headache, unspecified; B60.09 Other babesiosis; A44.0 Systemic bartonellosis; R07.89 Other chest pain; R06.00 Dyspnea, unspecified; R53.83 Other fatigue; E29.1 Testicular hypofunction
CPT/HCPCS: 80053; 82728; 83540; 83735; 84402; 84484; 85025; 85652; 86140; 86141

== ENCOUNTER → 2024-10-13 | Outpatient (CLI) | payer OTHER, SELFPAY | END | disposition home or self-care (01) | PROVIDERS: PCP Family Medicine; Referring Provider Nurse Practitioner Family; Visit Provider Nurse Practitioner Family | DX: D68.59 Other primary thrombophilia (principal); Z13.220 Encounter for screening for lipoid disorders; Z83.2 Family history of diseases of the blood and blood-forming organs and certain disorders involving the immune mechanism; Z82.49 Family history of ischemic heart disease and other diseases of the circulatory system | CPT/HCPCS: 36415 ==

== ENCOUNTER → 2024-10-15 | Outpatient (CLI) | payer OTHER, SELFPAY ==
[2024-10-15 10:28] LABS: International Normalized Ratio 1.1; Prothrombin Time (Protime)PT. 13.9 SECONDS (11.7-14.9)
[2024-10-15 10:30] LABS: D-Dimer Quantitative (DVT/PE) 0.27 FEU/ug/m (0.27-0.49)
== END | disposition home or self-care (01) ==
LOC: LAB 09:37
PROVIDERS: PCP Family Medicine; Referring Provider Nurse Practitioner Family; Visit Provider Nurse Practitioner Family
DX: R06.02 Shortness of breath (principal); I30.0 Acute nonspecific idiopathic pericarditis; I25.10 Atherosclerotic heart disease of native coronary artery without angina pectoris; I31.39 Other pericardial effusion (noninflammatory); Z51.81 Encounter for therapeutic drug level monitoring; Z79.899 Other long term (current) drug therapy
CPT/HCPCS: 36415; 85379; 85610

== ENCOUNTER → 2024-11-07 | Outpatient (CLI) | payer OTHER, SELFPAY ==
[2024-11-07 16:09] LABS: Erythrocyte Sedimentation Rate 1 mm/hr (0-20)
[2024-11-07 16:11] LABS: Absolute Lymphocyte Count 2.32 X10^3/uL (0.83-4.51); Absolute Neutrophil Count 4.1 X10^3/uL (2.0-7.7); Basophil# 0.05 X10^3/uL; Basophil% 0.7 % (0-1); Eosinophils% 4.2 % (0-5); Hematocrit 49.6 % (40-54); Hemoglobin 16.3 g/dL (13.0-16.5); Lymphocyte # 2.32 X10^3/ul (0.83-4.51); Lymphocyte % 32.1 % (19-41); Mean Corp Hgb Conc 32.9 g/dL (32-36); Mean Corpuscular Hgb 28.3 pg (27.0-32.0); Mean Corpuscular Volume 86.3 fL (80-94); Mean Platelet Vol. 8.8 fl (6.2-12.0); Monocyte# 0.43 X10^3/uL; NRBC Flagged by Analyzer 0 % (0-5); Neutrophil % 56.7 % (47-70); Platelet Count 317 K/mm3 (150-450); RBC Distribution Width CV 12.5 % (11.6-14.6); Red Blood Count 5.75 M/mm3 (4.6-6.2); White Blood Count 7.2 K/mm3 (4.4-11.0)
[2024-11-07 16:12] LABS: ALB/GLOB Ratio 1.4 RATIO (0.9-2.4); AST(SGOT) 24 U/L (15-37); Alanine Aminotransfer ALT/SGPT 34 U/L (16-61); Albumin, Serum 4.3 g/dL (3.2-5.0); Alkaline Phosphatase 54 U/L (45-117); Anion Gap 7 (5-15); BUN 17 mg/dL (7-18); BUN/Creat Ratio 13.1 RATIO (10-20); CRP < 2.90 mg/L (0.0-3.0); Calcium,Total 9.6 mg/dL (8.5-10.1); Chloride 102 mmol/L (98-107); EST Glomerular Filtration Rate 62 mL/min (>60); Est Glom Filt Rate - Afr Amer 75 mL/min (>60); Globulin 3.1 g/dL (2.2-4.2); Glucose 114 mg/dL (74-106); Protein, Total 7.4 g/dL (6.4-8.2); Sodium Level 137 mmol/L (136-145)
[2024-11-09 12:08] LABS: CRP, High Sensitivity 1.76 mg/L (0.00-3.00)
[2024-11-11 11:08] LABS: Testosterone Free 14.1 pg/mL (7.2-24.0)
== END | disposition home or self-care (01) ==
PROVIDERS: PCP Family Medicine; Referring Provider Nurse Practitioner Family; Visit Provider Nurse Practitioner Family
DX: A44.0 Systemic bartonellosis (principal); M79.18 Myalgia, other site; R51.9 Headache, unspecified; R07.89 Other chest pain; I30.9 Acute pericarditis, unspecified; E29.1 Testicular hypofunction
CPT/HCPCS: 80053; 84402; 85025; 85652; 86140; 86141; 86658

== ENCOUNTER → 2024-12-23 | Outpatient (CLI) | payer OTHER, SELFPAY ==
[2024-12-23 16:20] LABS: CRP 3.22 mg/L (0.0-3.0)
[2024-12-25 08:07] LABS: CRP, High Sensitivity 2.27 mg/L (0.00-3.00)
[2024-12-30 08:08] LABS: Testosterone Free 8.5 pg/mL (7.2-24.0)
== END | disposition home or self-care (01) ==
PROVIDERS: PCP Family Medicine; Referring Provider Nurse Practitioner Family; Visit Provider Nurse Practitioner Family
DX: A44.0 Systemic bartonellosis (principal); M79.18 Myalgia, other site; R51.9 Headache, unspecified; R07.89 Other chest pain; I30.9 Acute pericarditis, unspecified; E29.1 Testicular hypofunction
CPT/HCPCS: 84402; 86060; 86140; 86141; 86658

== ENCOUNTER → 2025-06-27 13:47 | Outpatient (REF) | payer OTHER, SELFPAY ==
[2025-06-27 14:11] LABS: Hematocrit 48.8 % (40-54); Hemoglobin 16.1 g/dL (13.0-16.5); Immature Granulocytes Count 0.030 X10^3/uL (0.0-0.0); Mean Corp Hgb Conc 33.0 g/dL (32-36); Mean Corpuscular Volume 87.8 fL (80-94); Mean Platelet Vol. 9.2 fl (6.2-12.0); NRBC Flagged by Analyzer 0 % (0-5); Platelet Count 300 K/mm3 (150-450); RBC Distribution Width CV 12.3 % (11.6-14.6); RBC Distribution Width SD 39.5 fl (35.1-43.9); Red Blood Count 5.56 M/mm3 (4.6-6.2); White Blood Count 7.3 K/mm3 (4.4-11.0)
--- OUTSIDE RECORDS SUMMARY | 2025-06-27 21:30 | XMS RPT_ITS | CCD ---
Author Organization [facility] Informat ion Partnership [facility] Care Team Providers Care Freight Flagman Name Role Phone Andrew Raza Primary Care Provider ANDREW RAZA Primary Care Unava MAX Cavazos Attending Unavail able CRISTINA CROSS CNP Attending Unavailable CRISTINA CROSS CNP Primary Care Unavailable CRISTINA CROSS CNP Admitting Unavailable CRISTINA CROSS CNP Admitting Unavailable CRISTINA CROSS CNP Attending Unavailable CRISTINA CROSS CNP Primary Care Unavailable [facility] Unavailable Shun Guerrero Attending Unavailable [facility] Unavailable Cristina Cross NP Attending Unavailabl racquel [facility] Unavailable America HAGER, Cristina Palafox Attending Unavailkory Cross NP, Cristina Palafox Referring Unavailabl racquel Cross NP, Cristina Palafox Referring Unavailabl racquel [facility] Unavailable Cristina Cross NP Attending Unavailkory Cross SHEEP OR CALF GRADER, Cristina Palafox Referring Unavailabl racquel Cross SHEEP OR CALF GRADER, Cristina Palafox Attending Unavailabl racquel [facility] Unavailable America HAGER, Cristina Palafox Referring Unavailabl racquel Cross SHEEP OR CALF GRADER, Cristina Palafox Attending Unavailabl e [facility] Unavailable America SHEEP OR CALF GRADER, Cristina Palafox Attending Unavailabl racquel [facility] Unavailable Cristina Cross NP Referring Unavailabl e [facility] Unavailable America HAGER, Cristina Palafox Attending Unavailabl racquel Cross SHEEP OR CALF GRADER, Cristina Palafox Referring Unavailabl racquel Cross SHEEP OR CALF GRADER, Cristina Palafox Attending Unavailabl e [facility] Unavailable Cristina Cross NP Referring Unavailabl e Medications Current Medications Medication Drug Class(es) Dates Sig (Normalized) Sig (Original) acetaminophen 325 mg / oxyCODONE hydrochloride 5 mg oral tablet (2 sources) Opioid Agonist Start: 05-10-2021 take 1 tablet by mouth every six hours Oxycodone-Acetami nophen (Endocet) 5-325 mg tablet Active 1 - 2 TABLET PO EVERY 6 HOURS 15 May 10, 2021 Budesonide-Formoterol (2 sources) Corticosteroid, beta2-Adrenergic Agonist Start: 10-25-2019 take 1 puff(s) by inhalation twice daily Budesonide-Formot jessika Active 2 PUFF IH TWICE A DAY October 25, 2019 3:13pm Start: 10-25-2019 take 1 puff(s) by in halation twice daily Budesonide-Formoterol Active 2 PUFF IH TWICE A DAY October 25, 2019 1:00am cholecalciferol 0.05 mg oral capsule (2 sources) Vitamin D Start: 10-25-2019 take 2000 [IU] by mouth once daily Cholecalciferol (Vitamin D3) Active 2000 UNIT PO DAILY October 25, 2019 3:13pm DULoxetine 60 mg delayed release oral capsule (3 sources) Serotonin and Norepinephrine Reuptake Inhibitor Start: 08-16-2020 take 1 capsule by mouth once daily DULoxetine (CYMBALTA) 60 MG capsule Take 60 mg by mouth daily . 0 08/16/2020 Active Start: 10-25-2019 take 60 mg by mouth once daily Duloxetine Active 60 MG PO DAILY October 25, 2019 3:13pm 60 actuat formoterol fumarate 0.005 mg/actuat / mometasone furoate 0.2 mg/actuat metered dose inhaler (1 source) Corticosteroid, beta2-Adrenergic Agonist Start: 08-28-2020 take 2 puff(s) by mouth twice daily Dulera 200-5 mcg/actuation HFAA INHALE 2 PUFFS BY MOUTH and into the lungs TWICE DAILY 0 08/28/2020 Active lamoTRIgine 200 mg oral tablet (3 sources) Mood Stabilizer, Anti-epileptic Agent Start: 08-16-2020 take 1 tablet by mouth once daily lamoTRIgine (LAMICTAL) 200 MG tablet Take 200 mg by mouth daily . 0 08/16/2020 Active Start: 10-25-2019 take 200 mg by mouth at bedtim e Lamotrigine Active 200 MG PO AT BEDTIME October 25, 2019 3:13pm Completed/Discontinued Medications Medication Drug Class(es) Dates Sig (Normalized) Sig (Original) cephalexin 500 mg oral capsule (2 sources) Cephalosporin Antibacterial Start: 10-25-2019 End: 04-29-2021 take 500 mg by mouth every six hours Cephalexin Discontinued 500 MG PO EVERY 6 HOURS October 25, 2019 5:12pm April 29, 2021 2:54pm Problems Active Problems Problem Classification Problem Date Documented Date Episodic/Chronic Abdominal hernia (2 sources) Umbilical hernia; Translations: [Umbilical hernia without obstruction or gangrene] 05-10-2021 Episodic Bacterial infection; unspecified site (1 source) Systemic bartonellosis; 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] Onset: 01-05-2025 Episodic Biliary tract disease (1 source) Calculus of gallbladder without cholecystitis without obstruction; Translations: [Calculus of gallbladder without cholecystitis without obstruction] Onset: 10-13-2024 Episodic Coagulation and hemorrhagic disorders (1 source) Other primary thrombophilia; 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 Nonspecific chest pain (1 source) Other chest pain; Translations: [Other chest pain] Onset: 10-13-2024 Episodic Other aftercare (2 sources) History of repair of umbilical hernia; Translations: [Encounter for follow-up examination after completed treatment for conditions other than malignant neoplasm] 05-30-2021 Episodic Other lower respiratory disease (1 source) Other nonspecific abnormal finding of lung field; Translations: [Other nonspecific abnormal finding of lung field] Onset: 10-13-2024 Episodic Other upper respiratory infections (1 source) Upper respiratory infection; Translations: [Upper respiratory tract infection, unspecified type] Episodic Pleurisy; pneumothorax; pulmonary collapse (2 sources) Atelectasis; Translations: [Atelectasis] Onset: 10-13-2024 Episodic Residual codes; unclassified (2 sources) Sleep apnea; Translations: [Sleep apnea, unspecified] 04-29-2021 Chronic Residual codes; unclassified (1 source) Other general symptoms and signs; Translations: [Suspected Covid-19 Virus Infection] Episodic Past or Other Problems Problem Classification Problem Date Documented Da te Episodic/Chronic Other lower respiratory disease (1 source) Shortness of breath; Translations: [Shortness of breath] Onset: 11-14-2024 Episodic Residual codes; unclassified (1 source) Insomnia, unspecified; Translations: [Insomnia, unspecified] Onset: 10-24-2024 Episodic Results Test Name Value Interpretation Reference Range Facility Testosterone Freeon 03-03-20 25 TESTOSTER FREE 15.9 pg/mL Normal 7.2-24.0 [facility] Comment on above: Result Comment: Perf ormed at: [facility] [address] [id number] Chief Controller Station: Rashi Givens MD, Phone: [phone] Performed By: #### L 503.6550, L501.4020, L3100.7870, L101.9900, L503.6150, L500.4050, L501.5200, L3400.4800, L501.6710, L100.0100 #### [facility] [address] [place], [address] CRP, High Sensitivity [id number] on 03-01-2025 CRP, HIGH SENS 0.99 mg/L Normal 0.00-3.00 [facility] Comment on above: Result Comment: Rela tive Risk for Future Cardiovascular Event Low <1.00 Average 1.00 - 3.00 High >3.00 Performed at: [address] [id number] Chief Controller Station: Tomasz Marie PhD, Phone: [phone] Performed By: #### L 503.6550, L501.4020, L3100.7870, L101.9900, L503.6150, L500.4050, L501.5200, L3400.4800, L501.6710, L100.0100 #### [facility] [address] [place], [address] CBC W/Diff, Automatedon - Absolute Lymph 2.11 X10 3/uL Normal 0.83-4.51 [facility] Comment on above: Performed By: #### L 503.6550, L501.4020, L3100.7870, L101.9900, L503.6150, L500.4050, L501.5200, L3400.4800, L501.6710, L100.0100 #### [facility] [address] [facility] [place], [address] ( Absolute Neut 3.1 X10 3/uL Normal 2.0-7.7 [facility] Comment on above: Performed By: #### L 503.6550, L501.4020, L3100.7870, L101.9900, L503.6150, L500.4050, L501.5200, L3400.4800, L501.6710, L100.0100 #### [facility] [address] [facility] [place], [address] (510) Basophils/100 WBC (Bld) 0.8 % Normal 0-1 [facility] Comment on above: Performed By: #### L 503.6550, L501.4020, L3100.7870, L101.9900, L503.6150, L500.4050, L501.5200, L3400.4800, L501.6710, L100.0100 #### [facility] [address] [facility] [place], [address] (712) Eosinophils/100 WBC (Bld) 6.2 % High 0-5 [facility] Comment on above: Performed By: #### L 503.6550, L501.4020, L3100.7870, L101.9900, L503.6150, L500.4050, L501.5200, L3400.4800, L501.6710, L100.0100 #### [facility] [address] [facility] [place], [address] (802) Erythrocyte distribution width (RBC) [Ratio] 13.0 % Normal 11.6-14.6 [facility] Comment on above: Performed By: #### L 503.6550, L501.4020, L3100.7870, L101.9900, L503.6150, L500.4050, L501.5200, L3400.4800, L501.6710, L100.0100 #### [facility] [address] [place], [address] Hematocrit (Bld) [Volume fraction] 48.4 % Normal 40-54 [facility] Comment on above: Performed By: #### L 503.6550, L501.4020, L3100.7870, L101.9900, L503.6150, L500.4050, L501.5200, L3400.4800, L501.6710, L100.0100 #### [facility] [address] [facility] [place], [address] Hemoglobin (Bld) [Mass/Vol] 16.0 g/dL Normal 13.0-16.5 [facility] Comment on above: Performed By: #### L 503.6550, L501.4020, L3100.7870, L101.9900, L503.6150, L500.4050, L501.5200, L3400.4800, L501.6710, L100.0100 #### [facility] [address] [facility] [place], [address] IG% 0.300 Normal 0.0-0.9 [facility] Comment on above: Result Comment: IG% - Immature Granulocytes (promyelocytes, myelocytes and metamyelocytes) > 1% indicates that a LEFT SHIFT is Present. Performed By: #### L 503.6550, L501.4020, L3100.7870, L101.9900, L503.6150, L500.4050, L501.5200, L3400.4800, L501.6710, L100.0100 #### [facility] [address] [place], [address] Lymphocytes/100 WBC (Bld) 34.6 % Normal 19-41 [facility] Comment on above: Performed By: #### L 503.6550, L501.4020, L3100.7870, L101.9900, L503.6150, L500.4050, L501.5200, L3400.4800, L501.6710, L100.0100 #### [facility] [address] [place], [address] MCH (RBC) [Entitic mass] 28.7 pg Normal 27.0-32.0 [facility] Comment on above: Performed By: #### L 503.6550, L501.4020, L3100.7870, L101.9900, L503.6150, L500.4050, L501.5200, L3400.4800, L501.6710, L100.0100 #### [facility] [address] [facility] [place], [address] MCHC (RBC) [Mass/Vol] 33.1 g/dL Normal 32-36 [facility] Comment on above: Performed By: #### L 503.6550, L501.4020, L3100.7870, L101.9900, L503.6150, L500.4050, L501.5200, L3400.4800, L501.6710, L100.0100 #### [facility] [address] [facility] [place], [address] MCV (RBC) [Entitic vol] 86.9 fL Normal 80-94 [facility] Comment on above: Performed By: #### L 503.6550, L501.4020, L3100.7870, L101.9900, L503.6150, L500.4050, L501.5200, L3400.4800, L501.6710, L100.0100 #### [facility] [address] [facility] [place], [address] Monocytes/100 WBC (Bld) 7.5 % Normal 0-10 [facility] Comment on above: Performed By: #### L 503.6550, L501.4020, L3100.7870, L101.9900, L503.6150, L500.4050, L501.5200, L3400.4800, L501.6710, L100.0100 #### [facility] [address] [place], [address] ( Neutrophils/100 WBC (Bld) 50.6 % Normal 47-70 [facility] Comment on above: Performed By: #### L 503.6550, L501.4020, L3100.7870, L101.9900, L503.6150, L500.4050, L501.5200, L3400.4800, L501.6710, L100.0100 #### [facility] [address] [facility] [place], [address] ([address] Nucleated RBC (Bld) [#/Vol] 0 10*3/uL Normal 0-5 [facility] Comment on above: Performed By: #### L 503.6550, L501.4020, L3100.7870, L101.9900, L503.6150, L500.4050, L501.5200, L3400.4800, L501.6710, L100.0100 #### [facility] [address] [facility] [place], [address] Platelet mean volume (Bld) [Entitic vol] 8.9 fL Normal 6.2-12.0 [facility] Comment on above: Performed By: #### L 503.6550, L501.4020, L3100.7870, L101.9900, L503.6150, L500.4050, L501.5200, L3400.4800, L501.6710, L100.0100 #### [facility] [address] [facility] [place], [address] (626 Platelets (Bld) [#/Vol] 300 10*3/uL Normal 150-450 [facility] Comment on above: Performed By: #### L 503.6550, L501.4020, L3100.7870, L101.9900, L503.6150, L500.4050, L501.5200, L3400.4800, L501.6710, L100.0100 #### [facility] [address] [facility] [place], [address] RBC (Bld) [#/Vol] 5.57 10*6/uL Normal 4.6-6.2 [facility] Comment on above: Performed By: #### L 503.6550, L501.4020, L3100.7870, L101.9900, L503.6150, L500.4050, L501.5200, L3400.4800, L501.6710, L100.0100 #### [facility] [address] [facility] [place], [address] RDW SD 40.9 fl Normal 35.1-43.9 [facility] Comment on above: Performed By: #### L 503.6550, L501.4020, L3100.7870, L101.9900, L503.6150, L500.4050, L501.5200, L3400.4800, L501.6710, L100.0100 #### [facility] [address] [facility] [place], [address] WBC (Bld) [#/Vol] 6.1 10*3/uL Normal 4.4-11.0 [facility] Comment on above: Performed By: #### L 503.6550, L501.4020, L3100.7870, L101.9900, L503.6150, L500.4050, L501.5200, L3400.4800, L501.6710, L100.0100 #### [facility] [address] [facility] [place], [address] CRPon 02-27-2025 C-REACTIVE PROT < 3.00 Normal 0.0-3.0 [facility] Comment on above: Performed By: #### L 503.6550, L501.4020, L3100.7870, L101.9900, L503.6150, L500.4050, L501.5200, L3400.4800, L501.6710, L100.0100 #### [facility] [address] [place], [address] Comprehensive Metabolic Prof ilon 02-27-2025 Albumin [Mass/Vol] 4.7 g/dL Normal 3.5-5.0 [facility] Comment on above: Performed By: #### L 503.6550, L501.4020, L3100.7870, L101.9900, L503.6150, L500.4050, L501.5200, L3400.4800, L501.6710, L100.0100 #### [facility] [address] [place], [address] Albumin/Globulin [Mass ratio] 2.1 {ratio} Normal 0.9-2.4 [facility] Comment on above: Performed By: #### L 503.6550, L501.4020, L3100.7870, L101.9900, L503.6150, L500.4050, L501.5200, L3400.4800, L501.6710, L100.0100 #### [facility] [address] [place], [address] ALK PHOS 48 U/L Normal 40-129 [facility] Comment on above: Performed By: #### L 503.6550, L501.4020, L3100.7870, L101.9900, L503.6150, L500.4050, L501.5200, L3400.4800, L501.6710, L100.0100 #### [facility] [address] [place], [address] ALT [Catalytic activity/Vol] 41 U/L Normal <=46 [facility] Comment on above: Performed By: #### L 503.6550, L501.4020, L3100.7870, L101.9900, L503.6150, L500.4050, L501.5200, L3400.4800, L501.6710, L100.0100 #### [facility] [address] [place], [address] AST [Catalytic activity/Vol] 33 U/L Normal <=37 [facility] Comment on above: Performed By: #### L 503.6550, L501.4020, L3100.7870, L101.9900, L503.6150, L500.4050, L501.5200, L3400.4800, L501.6710, L100.0100 #### [facility] [address] [place], [address] Bilirubin [Mass/Vol] 0.40 mg/dL Normal 0.00-1.30 [facility] Comment on above: Performed By: #### L 503.6550, L501.4020, L3100.7870, L101.9900, L503.6150, L500.4050, L501.5200, L3400.4800, L501.6710, L100.0100 #### [facility] [address] [place], [address] BUN/CRE 11.4 RATIO Normal 10-20 [facility] Comment on above: Performed By: #### L 503.6550, L501.4020, L3100.7870, L101.9900, L503.6150, L500.4050, L501.5200, L3400.4800, L501.6710, L100.0100 #### [facility] [address] [place], [address] Calcium [Mass/Vol] 9.8 mg/dL Normal 7.6-11.0 [facility] Comment on above: Performed By: #### L 503.6550, L501.4020, L3100.7870, L101.9900, L503.6150, L500.4050, L501.5200, L3400.4800, L501.6710, L100.0100 #### [facility] [address] [place], [place], [id number] (455) Chloride [Moles/Vol] 101 mmol/L Normal 98-108 [facility] Comment on above: Performed By: #### L 503.6550, L501.4020, L3100.7870, L101.9900, L503.6150, L500.4050, L501.5200, L3400.4800, L501.6710, L100.0100 #### [facility] [address] [facility] [address] [place], [place], [id number] (302) CO2 [Moles/Vol] 27.6 mmol/L Normal 21.0-32.0 [facility] Comment on above: Performed By: #### L 503.6550, L501.4020, L3100.7870, L101.9900, L503.6150, L500.4050, L501.5200, L3400.4800, L501.6710, L100.0100 #### [facility] [address] [facility] [place], [place], [id number] (398) Creatinine [Mass/Vol] 1.14 mg/dL Normal 0.70-1.20 [facility] Comment on above: Performed By: #### L 503.6550, L501.4020, L3100.7870, L101.9900, L503.6150, L500.4050, L501.5200, L3400.4800, L501.6710, L100.0100 #### [facility] [address] [facility] [place], [place], [phone] (791) GAP 11 Normal 5-15 [facility] Comment on above: Performed By: #### L 503.6550, L501.4020, L3100.7870, L101.9900, L503.6150, L500.4050, L501.5200, L3400.4800, L501.6710, L100.0100 #### [facility] [address] [place], [address] GFR/1.73 sq M.predicted among non-blacks MDRD (S/P/Bld) [Vol rate/Area] 77 mL/min/{1.73_m2} Normal >60 [facility] Comment on above: Result Comment: mL/m in/1.73m2 CKD-EPI Creatinine Equation (2020) Performed By: #### L 503.6550, L501.4020, L3100.7870, L101.9900, L503.6150, L500.4050, L501.5200, L3400.4800, L501.6710, L100.0100 #### [facility] [address] [place], [address] Globulin (S) [Mass/Vol] 2.2 g/dL Normal 2.2-4.2 [facility] Comment on above: Performed By: #### L 503.6550, L501.4020, L3100.7870, L101.9900, L503.6150, L500.4050, L501.5200, L3400.4800, L501.6710, L100.0100 #### [facility] [address] [place], [address] Glucose [Mass/Vol] 116 mg/dL High 70-99 [facility] Comment on above: Performed By: #### L 503.6550, L501.4020, L3100.7870, L101.9900, L503.6150, L500.4050, L501.5200, L3400.4800, L501.6710, L100.0100 #### [facility] [address] [place], [address] Potassium [Moles/Vol] 4.4 mmol/L Normal 3.3-5.1 [facility] Comment on above: Performed By: #### L 503.6550, L501.4020, L3100.7870, L101.9900, L503.6150, L500.4050, L501.5200, L3400.4800, L501.6710, L100.0100 #### [facility] [address] [place], [address] Sodium [Moles/Vol] 139 mmol/L Normal 133-145 [facility] Comment on above: Performed By: #### L 503.6550, L501.4020, L3100.7870, L101.9900, L503.6150, L500.4050, L501.5200, L3400.4800, L501.6710, L100.0100 #### [facility] [address] [place], [address] T PROT 6.9 g/dL Normal 5.9-8.4 [facility] Comment on above: Performed By: #### L 503.6550, L501.4020, L3100.7870, L101.9900, L503.6150, L500.4050, L501.5200, L3400.4800, L501.6710, L100.0100 #### [facility] [address] [place], [address] Urea nitrogen [Mass/Vol] 13 mg/dL Normal 4-19 [facility] Comment on above: Performed By: #### L 503.6550, L501.4020, L3100.7870, L101.9900, L503.6150, L500.4050, L501.5200, L3400.4800, L501.6710, L100.0100 #### [facility] [address] [place], [address] Estradiolon 02-27-2025 ESTRADIOL 13.7 pg/mL Normal [facility] Comment on above: Result Comment: MALE S ADULT MALE: 10-40 pg/mL IAIN STAGES MEAN AGE REFERENCE RANGES Stage I(>14 days and prepubertal) 7.1 years Undetectable-13 pg/mL Stage II 12.1 years Undetectable-16 pg/mL Stage III 13.6 years Undetectable-26 pg/mL Stage IV 15.1 years Undetectable-38 pg/mL Stage V 18 years 10-40 pg/mL Puberty onset (transition from Iain stage I to Iain Stage II) occurs for boys at a median age of 11.5 (+/- 2) years. For boys, there is no proven relationship between puberty onset and body weight or ethnic origin. Progression through Iain stages is variable. Iain stage V (adult) should be reached by age 18. Performed By: #### L 503.6550, L501.4020, L3100.7870, L101.9900, L503.6150, L500.4050, L501.5200, L3400.4800, L501.6710, L100.0100 #### [facility] [address] [facility] [place], [place], [id number] Ferritinon 02-27-2025 Ferritin [Mass/Vol] 161 ng/mL Normal 37-417 [facility] Comment on above: Performed By: #### L 503.6550, L501.4020, L3100.7870, L101.9900, L503.6150, L500.4050, L501.5200, L3400.4800, L501.6710, L100.0100 #### [facility] [address] [place], [place], [id number] Ironon 02-27-2025 Iron [Mass/Vol] 126 ug/dL Normal 65-175 [facility] Comment on above: Performed By: #### L 503.6550, L501.4020, L3100.7870, L101.9900, L503.6150, L500.4050, L501.5200, L3400.4800, L501.6710, L100.0100 #### [facility] [address] [place], [place], [id number] ASO Titeron 12-30-2024 ASO Ab 134.0 IU/mL Normal 0.0-200.0 [facility] Comment on above: Result Comment: Perf ormed at: [facility] [address] [id number] Chief Controller Station: Rashi Givens MD, Phone: [phone] Performed at: [facility] [address] [id number] Chief Controller Station: Tomasz Marie PhD, Phone: [phone] Performed By: #### L 503.6550, L501.4020, L3100.7870, L101.9900, L503.6150, L500.4050, L501.5200, L3400.4800, L501.6710, L100.0100 #### [facility] [address] [place], [address] Coxsackie Virus Group Bon COXSACKIE B1 Ab 1:500 Abnormal Neg:<1:100 [facility] Comment on above: Performed By: #### L 503.6550, L501.4020, L3100.7870, L101.9900, L503.6150, L500.4050, L501.5200, L3400.4800, L501.6710, L100.0100 #### [facility] [address] [place], [place], [id number] COX[facility] B2 Ab 1:500 Abnormal Neg:<1:100 [facility] Comment on above: Performed By: #### L 503.6550, L501.4020, L3100.7870, L101.9900, L503.6150, L500.4050, L501.5200, L3400.4800, L501.6710, L100.0100 #### [facility] [address] [place], [address] [facility] B3 Ab 1:100 Abnormal Neg:<1:100 [facility] Comment on above: Performed By: #### L 503.6550, L501.4020, L3100.7870, L101.9900, L503.6150, L500.4050, L501.5200, L3400.4800, L501.6710, L100.0100 #### [facility] [address] [place], [place], [phone] (111) [facility] B4 Ab 1:100 Abnormal Neg:<1:100 [facility] Comment on above: Performed By: #### L 503.6550, L501.4020, L3100.7870, L101.9900, L503.6150, L500.4050, L501.5200, L3400.4800, L501.6710, L100.0100 #### [facility] [address] [place], [place], [phone] (077) [facility] B5 Ab 1:1000 Abnormal Neg:<1:100 [facility] Comment on above: Performed By: #### L 503.6550, L501.4020, L3100.7870, L101.9900, L503.6150, L500.4050, L501.5200, L3400.4800, L501.6710, L100.0100 #### [facility] [address] [place], [place], [phone] (258) [facility] B6 Ab 1:100 Abnormal Neg:<1:100 [facility] Comment on above: Performed By: #### L 503.6550, L501.4020, L3100.7870, L101.9900, L503.6150, L500.4050, L501.5200, L3400.4800, L501.6710, L100.0100 #### [facility] [address] [place], [place], [phone] (084) Testosterone Freeon 12-30-19 25 TESTOSTER FREE 8.5 pg/mL Normal 7.2-24.0 [facility] Comment on above: Performed By: #### L 503.6550, L501.4020, L3100.7870, L101.9900, L503.6150, L500.4050, L501.5200, L3400.4800, L501.6710, L100.0100 #### [facility] [address] [place], [address] L3410.9998on 12-28-2024 [facility] COM[facility] Normal . [facility] Comment on above: Order Comment: 1 Result Comment: Test Ordered: [id number] Anti-DNase B Strep Antibodies Anti-DNase B Strep Antibodies <78 U/mL Reference Range: 0-120 Results verified by repeat testing Limit of assay detection is <78 Performed at: [address] [id number] Chief Controller Station: Rashi Givens MD, Phone: [phone] Performed at: [address] [id number] Chief Controller Station: Tomasz Marie PhD, Phone: [phone] Performed By: #### L 503.6550, L501.4020, L3100.7870, L101.9900, L503.6150, L500.4050, L501.5200, L3400.4800, L501.6710, L100.0100 #### [facility] [address] [place], [place], [id number] CRP, High Sensitivity 516893 on 12-25-2024 CRP, HIGH SENS 2.27 mg/L Normal 0.00-3.00 [facility] Comment on above: Result Comment: Rela tive Risk for Future Cardiovascular Event Low <1.00 Average 1.00 - 3.00 High >3.00 Performed at: [address] [id number] Chief Controller Station: Tomasz Marie PhD, Phone: [phone] Performed By: #### L 503.6550, L501.4020, L3100.7870, L101.9900, L503.6150, L500.4050, L501.5200, L3400.4800, L501.6710, L100.0100 #### [facility] [address] [place], [address] CRPon 12-23-2024 C-REACTIVE PROT 3.22 mg/L High 0.0-3.0 [facility] Comment on above: Result Comment: C-Re active Protein (CRP) provides useful information for the diagnosis, therapy and monitoring of inflammatory processes and associated diseases. For the evaluation of Relative Risk for Cardiovascular Disease, a High Sensitivity CRP (HSCRP) should be ordered. Performed By: #### L 503.6550, L501.4020, L3100.7870, L101.9900, L503.6150, L500.4050, L501.5200, L3400.4800, L501.6710, L100.0100 #### [facility] [address] [place], [address] [facility] B1 Ab 1:500 Abnormal Neg:<1:100 [facility] Comment on above: Performed By: #### L 503.6550, L501.4020, L3100.7870, L101.9900, L503.6150, L500.4050, L501.5200, L3400.4800, L501.6710, L100.0100 #### [facility] [address] [place], [place], [phone] [facility] B2 Ab 1:500 Abnormal Neg:<1:100 [facility] Comment on above: Performed By: #### L 503.6550, L501.4020, L3100.7870, L101.9900, L503.6150, L500.4050, L501.5200, L3400.4800, L501.6710, L100.0100 #### [facility] [address] [place], [address] (925) [facility] B3 Ab 1:100 Abnormal Neg:<1:100 [facility] Comment on above: Performed By: #### L 503.6550, L501.4020, L3100.7870, L101.9900, L503.6150, L500.4050, L501.5200, L3400.4800, L501.6710, L100.0100 #### [facility] [address] [place], [place], [phone] (919) [facility] B4 Ab 1:100 Abnormal Neg:<1:100 [facility] Comment on above: Performed By: #### L 503.6550, L501.4020, L3100.7870, L101.9900, L503.6150, L500.4050, L501.5200, L3400.4800, L501.6710, L100.0100 #### [facility] [address] [place], [place], [phone] (896) [facility] B5 Ab 1:1000 Abnormal Neg:<1:100 [facility] Comment on above: Performed By: #### L 503.6550, L501.4020, L3100.7870, L101.9900, L503.6150, L500.4050, L501.5200, L3400.4800, L501.6710, L100.0100 #### [facility] [address] [place], [place], [phone] (628) [facility] B6 Ab 1:500 Abnormal Neg:<1:100 [facility] Comment on above: Performed By: #### L 503.6550, L501.4020, L3100.7870, L101.9900, L503.6150, L500.4050, L501.5200, L3400.4800, L501.6710, L100.0100 #### [facility] [address] [place], [place], [phone] (635) Testosterone Freeon 11-11-19 25 TESTOSTER FREE 14.1 pg/mL Normal 7.2-24.0 [facility] Comment on above: Result Comment: Perf ormed at: - [facility] [id number] Chief Controller Station: Rashi Givens MD, Phone: [phone] Performed By: #### L 503.6550, L501.4020, L3100.7870, L101.9900, L503.6150, L500.4050, L501.5200, L3400.4800, L501.6710, L100.0100 #### [facility] [address] [place], [place], [id number] CRP, High Sensitivity 036902 on 11-09-2024 CRP, HIGH SENS 1.76 mg/L Normal 0.00-3.00 [facility] Comment on above: Result Comment: Rela tive Risk for Future Cardiovascular Event Low <1.00 Average 1.00 - 3.00 High >3.00 Performed at: [facility] [id number] Chief Controller Station: Tomasz Marie PhD, Phone: [phone] Performed By: #### L 503.6550, L501.4020, L3100.7870, L101.9900, L503.6150, L500.4050, L501.5200, L3400.4800, L501.6710, L100.0100 #### [facility] [address] [place], [address] CBC W/Diff, Automatedon Absolute Lymph 2.32 X10 3/uL Normal 0.83-4.51 [facility] Comment on above: Performed By: #### L 503.6550, L501.4020, L3100.7870, L101.9900, L503.6150, L500.4050, L501.5200, L3400.4800, L501.6710, L100.0100 #### [facility] [address] [place], [place], [phone] Absolute Neut 4.1 X10 3/uL Normal 2.0-7.7 [facility] Comment on above: Performed By: #### L 503.6550, L501.4020, L3100.7870, L101.9900, L503.6150, L500.4050, L501.5200, L3400.4800, L501.6710, L100.0100 #### [facility] [address] [place], [address] Basophils/100 WBC (Bld) 0.7 % Normal 0-1 [facility] Comment on above: Performed By: #### L 503.6550, L501.4020, L3100.7870, L101.9900, L503.6150, L500.4050, L501.5200, L3400.4800, L501.6710, L100.0100 #### [facility] [address] [place], [address] Eosinophils/100 WBC (Bld) 4.2 % Normal 0-5 [facility] Comment on above: Performed By: #### L 503.6550, L501.4020, L3100.7870, L101.9900, L503.6150, L500.4050, L501.5200, L3400.4800, L501.6710, L100.0100 #### [facility] [address] [place], [address] Erythrocyte distribution width (RBC) [Ratio] 12.5 % Normal 11.6-14.6 [facility] Comment on above: Performed By: #### L 503.6550, L501.4020, L3100.7870, L101.9900, L503.6150, L500.4050, L501.5200, L3400.4800, L501.6710, L100.0100 #### [facility] [address] [place], [address] Hematocrit (Bld) [Volume fraction] 49.6 % Normal 40-54 [facility] Comment on above: Performed By: #### L 503.6550, L501.4020, L3100.7870, L101.9900, L503.6150, L500.4050, L501.5200, L3400.4800, L501.6710, L100.0100 #### [facility] [address] [place], [address] Hemoglobin (Bld) [Mass/Vol] 16.3 g/dL Normal 13.0-16.5 [facility] Comment on above: Performed By: #### L 503.6550, L501.4020, L3100.7870, L101.9900, L503.6150, L500.4050, L501.5200, L3400.4800, L501.6710, L100.0100 #### [facility] [address] [place], [address] IG% 0.300 Normal 0.0-0.9 [facility] Comment on above: Result Comment: IG% - Immature Granulocytes (promyelocytes, myelocytes and metamyelocytes) > 1% indicates that a LEFT SHIFT is Present. Performed By: #### L 503.6550, L501.4020, L3100.7870, L101.9900, L503.6150, L500.4050, L501.5200, L3400.4800, L501.6710, L100.0100 #### [facility] [address] [place], [address] Lymphocytes/100 WBC (Bld) 32.1 % Normal 19-41 [facility] Comment on above: Performed By: #### L 503.6550, L501.4020, L3100.7870, L101.9900, L503.6150, L500.4050, L501.5200, L3400.4800, L501.6710, L100.0100 #### [facility] [address] [place], [address] MCH (RBC) [Entitic mass] 28.3 pg Normal 27.0-32.0 [facility] Comment on above: Performed By: #### L 503.6550, L501.4020, L3100.7870, L101.9900, L503.6150, L500.4050, L501.5200, L3400.4800, L501.6710, L100.0100 #### [facility] [address] [place], [address] MCHC (RBC) [Mass/Vol] 32.9 g/dL Normal 32-36 [facility] Comment on above: Performed By: #### L 503.6550, L501.4020, L3100.7870, L101.9900, L503.6150, L500.4050, L501.5200, L3400.4800, L501.6710, L100.0100 #### [facility] [address] [place], [address] MCV (RBC) [Entitic vol] 86.3 fL Normal 80-94 [facility] Comment on above: Performed By: #### L 503.6550, L501.4020, L3100.7870, L101.9900, L503.6150, L500.4050, L501.5200, L3400.4800, L501.6710, L100.0100 #### [facility] [address] [place], [place], [phone] Monocytes/100 WBC (Bld) 6.0 % Normal 0-10 [facility] Comment on above: Performed By: #### L 503.6550, L501.4020, L3100.7870, L101.9900, L503.6150, L500.4050, L501.5200, L3400.4800, L501.6710, L100.0100 #### [facility] [address] [place], [place], [phone] (500) Neutrophils/100 WBC (Bld) 56.7 % Normal 47-70 [facility] Comment on above: Performed By: #### L 503.6550, L501.4020, L3100.7870, L101.9900, L503.6150, L500.4050, L501.5200, L3400.4800, L501.6710, L100.0100 #### [facility] [address] [place], [address] (472) Nucleated RBC (Bld) [#/Vol] 0 10*3/uL Normal 0-5 [facility] Comment on above: Performed By: #### L 503.6550, L501.4020, L3100.7870, L101.9900, L503.6150, L500.4050, L501.5200, L3400.4800, L501.6710, L100.0100 #### [facility] [address] [place], [place], [phone] (055) Platelet mean volume (Bld) [Entitic vol] 8.8 fL Normal 6.2-12.0 [facility] Comment on above: Performed By: #### L 503.6550, L501.4020, L3100.7870, L101.9900, L503.6150, L500.4050, L501.5200, L3400.4800, L501.6710, L100.0100 #### [facility] [address] [place], [address] (306) Platelets (Bld) [#/Vol] 317 10*3/uL Normal 150-450 [facility] Comment on above: Performed By: #### L 503.6550, L501.4020, L3100.7870, L101.9900, L503.6150, L500.4050, L501.5200, L3400.4800, L501.6710, L100.0100 #### [facility] [address] [place], [place], [phone] (736) RBC (Bld) [#/Vol] 5.75 10*6/uL Normal 4.6-6.2 [facility] Comment on above: Performed By: #### L 503.6550, L501.4020, L3100.7870, L101.9900, L503.6150, L500.4050, L501.5200, L3400.4800, L501.6710, L100.0100 #### [facility] [address] [place], [address] RDW SD 39.0 fl Normal 35.1-43.9 [facility] Comment on above: Performed By: #### L 503.6550, L501.4020, L3100.7870, L101.9900, L503.6150, L500.4050, L501.5200, L3400.4800, L501.6710, L100.0100 #### [facility] [address] [place], [place], [phone] WBC (Bld) [#/Vol] 7.2 10*3/uL Normal 4.4-11.0 [facility] Comment on above: Performed By: #### L 503.6550, L501.4020, L3100.7870, L101.9900, L503.6150, L500.4050, L501.5200, L3400.4800, L501.6710, L100.0100 #### [facility] [address], [address] CRPon 11-07-2024 C-REACTIVE PROT < 2.90 Normal 0.0-3.0 [facility] Comment on above: Result Comment: C-Re active Protein (CRP) provides useful information for the diagnosis, therapy and monitoring of inflammatory processes and associated diseases. For the evaluation of Relative Risk for Cardiovascular Disease, a High Sensitivity CRP (HSCRP) should be ordered. Performed By: #### L 503.6550, L501.4020, L3100.7870, L101.9900, L503.6150, L500.4050, L501.5200, L3400.4800, L501.6710, L100.0100 #### [facility] [address] [place], [address] Comprehensive Metabolic Prof ilon 11-07-2024 Albumin [Mass/Vol] 4.3 g/dL Normal 3.2-5.0 [facility] Comment on above: Performed By: #### L 503.6550, L501.4020, L3100.7870, L101.9900, L503.6150, L500.4050, L501.5200, L3400.4800, L501.6710, L100.0100 #### [facility] [address] [place], [address] Albumin/Globulin [Mass ratio] 1.4 {ratio} Normal 0.9-2.4 [facility] Comment on above: Performed By: #### L 503.6550, L501.4020, L3100.7870, L101.9900, L503.6150, L500.4050, L501.5200, L3400.4800, L501.6710, L100.0100 #### [facility] [address] [place], [address] ALK P 54 U/L Normal 45-117 [facility] Comment on above: Performed By: #### L 503.6550, L501.4020, L3100.7870, L101.9900, L503.6150, L500.4050, L501.5200, L3400.4800, L501.6710, L100.0100 #### [facility] [address] [place], [address] ALT [Catalytic activity/Vol] 34 U/L Normal 16-61 [facility] Comment on above: Performed By: #### L 503.6550, L501.4020, L3100.7870, L101.9900, L503.6150, L500.4050, L501.5200, L3400.4800, L501.6710, L100.0100 #### [facility] [address] [place], [address] AST [Catalytic activity/Vol] 24 U/L Normal 15-37 [facility] Comment on above: Performed By: #### L 503.6550, L501.4020, L3100.7870, L101.9900, L503.6150, L500.4050, L501.5200, L3400.4800, L501.6710, L100.0100 #### [facility] [address] [place], [place], [phone] (853) Bilirubin [Mass/Vol] 0.50 mg/dL Normal 0.20-1.00 [facility] Comment on above: Result Comment: For patients on eltrombopag therapy, use of Dimension [place] TBIL is not recommended. Performed By: #### L 503.6550, L501.4020, L3100.7870, L101.9900, L503.6150, L500.4050, L501.5200, L3400.4800, L501.6710, L100.0100 #### [facility] [address] [place], [place], [phone] ([phone] BUN/CRE 13.1 RATIO Normal 10-20 [facility] Comment on above: Performed By: #### L 503.6550, L501.4020, L3100.7870, L101.9900, L503.6150, L500.4050, L501.5200, L3400.4800, L501.6710, L100.0100 #### [facility] [address] [place], [address] CA,Total 9.6 mg/dL Normal 8.5-10.1 [facility] Comment on above: Performed By: #### L 503.6550, L501.4020, L3100.7870, L101.9900, L503.6150, L500.4050, L501.5200, L3400.4800, L501.6710, L100.0100 #### [facility] [address] [place], [address] Chloride [Moles/Vol] 102 mmol/L Normal 98-107 [facility] Comment on above: Performed By: #### L 503.6550, L501.4020, L3100.7870, L101.9900, L503.6150, L500.4050, L501.5200, L3400.4800, L501.6710, L100.0100 #### [facility] [address] [place], [address] CO2 [Moles/Vol] 28.0 mmol/L Normal 21.0-32.0 [facility] Comment on above: Performed By: #### L 503.6550, L501.4020, L3100.7870, L101.9900, L503.6150, L500.4050, L501.5200, L3400.4800, L501.6710, L100.0100 #### [facility] [address] [place], [address] Creatinine [Mass/Vol] 1.30 mg/dL Normal 0.70-1.30 [facility] Comment on above: Result Comment: The validity of the calculated GFR GFRAA in patients over 70 years has not been determined. Clinical correlation is essential. Performed By: #### L 503.6550, L501.4020, L3100.7870, L101.9900, L503.6150, L500.4050, L501.5200, L3400.4800, L501.6710, L100.0100 #### [facility] [address] [place], [address] EST GFR - AA 75 mL/min Normal >60 [facility] Comment on above: Result Comment: Afri can [place] GFR Calc Performed By: #### L 503.6550, L501.4020, L3100.7870, L101.9900, L503.6150, L500.4050, L501.5200, L3400.4800, L501.6710, L100.0100 #### [facility] [address] [place], [place], [phone] (341) GAP 7 Normal 5-15 [facility] Comment on above: Performed By: #### L 503.6550, L501.4020, L3100.7870, L101.9900, L503.6150, L500.4050, L501.5200, L3400.4800, L501.6710, L100.0100 #### [facility] [address] [place], [place], [phone] (880) GFR/1.73 sq M.predicted among non-blacks MDRD (S/P/Bld) [Vol rate/Area] 62 mL/min/{1.73_m2} Normal >60 [facility] Comment on above: Result Comment: Non- GFR Calc Performed By: #### L 503.6550, L501.4020, L3100.7870, L101.9900, L503.6150, L500.4050, L501.5200, L3400.4800, L501.6710, L100.0100 #### [facility] [address] [place], [place], [phone] (272) Globulin (S) [Mass/Vol] 3.1 g/dL Normal 2.2-4.2 [facility] Comment on above: Performed By: #### L 503.6550, L501.4020, L3100.7870, L101.9900, L503.6150, L500.4050, L501.5200, L3400.4800, L501.6710, L100.0100 #### [facility] [address] [place], [place], [phone] (109) Glucose [Mass/Vol] 114 mg/dL High 74-106 [facility] Comment on above: Result Comment: Fast ing Glucose result from 100 to 125 mg/dL suggests IMPAIRED HOMEOSTASIS per A.D.A. criteria. Performed By: #### L 503.6550, L501.4020, L3100.7870, L101.9900, L503.6150, L500.4050, L501.5200, L3400.4800, L501.6710, L100.0100 #### [facility] [address] [place], [address] Potassium [Moles/Vol] 4.0 mmol/L Normal 3.5-5.1 [facility] Comment on above: Performed By: #### L 503.6550, L501.4020, L3100.7870, L101.9900, L503.6150, L500.4050, L501.5200, L3400.4800, L501.6710, L100.0100 #### [facility] [address] [place], [address] Sodium [Moles/Vol] 137 mmol/L Normal 136-145 [facility] Comment on above: Performed By: #### L 503.6550, L501.4020, L3100.7870, L101.9900, L503.6150, L500.4050, L501.5200, L3400.4800, L501.6710, L100.0100 #### [facility] [address] [place], [address] T PROT 7.4 g/dL Normal 6.4-8.2 [facility] Comment on above: Performed By: #### L 503.6550, L501.4020, L3100.7870, L101.9900, L503.6150, L500.4050, L501.5200, L3400.4800, L501.6710, L100.0100 #### [facility] [address] [place], [place], [address] Urea nitrogen [Mass/Vol] 17 mg/dL Normal 7-18 [facility] Comment on above: Performed By: #### L 503.6550, L501.4020, L3100.7870, L101.9900, L503.6150, L500.4050, L501.5200, L3400.4800, L501.6710, L100.0100 #### [facility] [address] [place], [place], [address] Erythrocyte Sed Rateon 11-07 SED RATE 1 mm/hr Normal 0-20 [facility] Comment on above: Performed By: #### L 503.6550, L501.4020, L3100.7870, L101.9900, L503.6150, L500.4050, L501.5200, L3400.4800, L501.6710, L100.0100 #### [facility] [address] [place], [place], [address] Miscellaneous Lab Procedureo n 10-28-2024 [facility] TEST Normal [facility] Comment on above: Order Comment: 1 Result Comment: TEST RESULTS LIMITS APCR w/FV+A2APla+Fibrin+FII... Lipoprotein (a) 11 mg/dL The mean and median Lp(a) concentration of the -[place] population is approximately twice that of the population, although studies have shown that elevated Lp(a) concentration is not an independent risk factor for developing atherosclerotic disease in the -[place] population. Reference Range: <31 Homocysteine 11.9 umol/L Homocysteine levels in patients >60 years increase 1-2 umol/L. Reference Range: 5.0 - 15.0 Fibrinogen Activity 302 mg/dL Reference Range: 160 - 420 Alpha-2 Antiplasmin Assay 98 % Reference Range: 80 - 150 JAYANT-1 Activity <4.4 IU/mL Reference Range: <31.1 Protein S Activity (clottable) 79 % Protein S activity may be falsely increased (masking an abnormal, low result) in patients receiving direct Xa inhibitor (e.g., rivaroxaban, apixaban, edoxaban) or a direct thrombin inhibitor (e.g., dabigatran) anticoagulant treatment due to assay interference by these drugs. Reference Range: 7 months and older: 63 - 140 This test was developed and its performance characteristics determined by [employer]. It has not been cleared or approved by the Food and Drug Administration. Act. Prt C Resist w/FV Defic. 2.5 ratio The APCR result may be falsely increased (masking an abnormal, low APCR result) in patients on direct Xa inhibitor (e.g., rivaroxaban, apixaban, edoxaban) or a direct thrombin inhibitor (e.g., dabigatran) anticoagulant therapy due to assay interference by these drugs. Reference Range: 2.2 - 3.5 Thrombin Antithrombin Complex 2.3 ng/mL Pre-analytical conditions such as a difficult draw may spuriously increase test results. Reference Range: <4.3 Factor II Gene Mutation Result G-G (Normal-Normal) No prothrombin [id number] mutation present. Interpretation: While the patient does not possess this risk factor, other thrombotic risk factors may be detected through systematic clinical laboratory analysis. Methodology: Patient DNA was evaluated for the [place] [id number] using PCR amplification followed by restriction analysis and gel electrophoresis. Comments: Simultaneous Risks: If a patient possesses two or more congenital or acquired thrombophilic risk factors, the risk of thrombosis may rise to more than the sum of the risk ratios for the individual risk factors. For instance, a combination of the prothrombin [id number] mutation and the factor V Leiden mutation may confer an increase in thrombotic risk in the range of 20-30 fold. Recommendations for Genetic Counseling: The prothrombin gene mutation is an inherited characteristic. If the mutation is present, we recommend that the patient and their family consider genetic counseling to obtain additional information on inheritance and to identify other family members at risk. Testing Characteristics: Genetic testing provides exceptionally high sensitivity and specificity. Inaccurate results are limited to rare polymorphisms in primer binding sites and to misidentification of specimens by collectors or laboratory personnel. This assay detects only the prothrombin [id number] mutation and does not detect other genetic abnormalities. This test was developed and its performance characteristics determined by [employer]. It has not been cleared or approved by the Food and Drug Administration. References: Ever Palafox, et al. Br J of Haem. 1997;98:907. Vivek DARNELL, et al. Br J of Haem. 1997;98:353. Moose Sloan and Angi Mol.Diagn. 2001;6(3):201. Kvng Burgess, et al. Thromb Haemost. 2001;86:809-16. Juan Centeno, et al. Thromb Haemost. 1999;82:1583. Prothrombin Fragment 1+2 MoAb 118 pmol/L Pre-analytical conditions such as a difficult draw may spuriously increase test results. Reference Range: <326 JAYANT-1 Gene Polymorphism JAYANT-1 Locus 4G/5G Polymorphism Patient DNA was evaluated for the JAYANT-1 4G/5G promoter polymorphism, which is a single base pair guanine (4G/5G) deletion/insertion polymorphism, using polymerase chain reaction (PCR) technology and restriction fragment length polymorphism (RFLP). 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 Interpretation This individual has two copies of the 5G allele, also known as the 5G/5G genotype of the plasminogen activator inhibitor type 1 (JAYANT-1) gene. The 5G/5G genotype is associated with the lowest JAYANT-1 activity and antigen levels compared to those individuals that have either the 4G/4G or 4G/5G genotype. Elevated JAYANT-1 levels are associated with an increased risk of coronary artery disease, venous thromboembolic disease and possibly complications of such as recurrent . Comments Simultaneous Risks: If a patient possesses two or more congenital or acquired risk factors, the risk of disease may rise to (more content not included)... Performed By: #### L 503.6550, L501.4020, L3100.7870, L101.9900, L503.6150, L500.4050, L501.5200, L3400.4800, L501.6710, L100.0100 #### [facility] [address] [place], [address] CT CHEST (PE PROTOCOL)on CT CHEST (PE PROTOCOL) [address] [address] Patient: UZMA CROSS Phone#: : 1975 Age: 49 Gender: M Pt. Type: Out Account: [id number] Location: Ordering: CRISTINA CROSS Exam Date: 10/18/2024/15:21 Family Phys: Charge Code: 733477 Physician: [place] Order #: [id number] Dose#: 8.80 PROCEDURE: CT CHEST WITH CONTRAST FOR PE COMPARISON: None. INDICATIONS: Unspecified dyspnea. TECHNIQUE: After obtaining the patient's consent, CT images were obtained with non-ionic intravenous contrast material. Multi-planar images were created to optimize visualization of vascular anatomy with MPR/MIPS and 3D imaging. All CT scans at this facility use dose modulation, iterative reconstruction, and/or weight based dosing when appropriate to reduce radiation dose to as low as reasonably achievable. IV CONTRAST: Omnipaque 350,100ml TOTAL DOSE: 8.80 CTDIvol(mGy) FINDINGS: VASCULATURE: Normal. No visible pulmonary arterial thrombus or attenuation. AORTA: Normal. No aneurysm or dissection. LUNGS: Normal. No visible pulmonary disease. EBONI: Normal. No mass or adenopathy. MEDIASTINUM: Normal. No mass or adenopathy. CARDIAC: Normal. No enlargement, pericardial thickening, or significant calcification. PLEURA: Normal. No mass or effusion. CHEST WALL: Normal. No mass or axillary adenopathy. LIMITED ABDOMEN: Normal. Limited images of the upper abdomen are unremarkable. BONES: Normal. No bony lesion or fracture. OTHER: Negative. CONCLUSION: 1. There is no evidence of pulmonary embolus. Dictated by: Susan Dorado MD on 10/18/2024 at 16:11 Continued Report - Page 2 of 2 Patient: UZMA CROSS Phone#: : 1975 Age: 49 Gender: M Pt. Type: Out Account: [id number] Location: Ordering: CRISTINA CROSS Exam Date: 10/18/2024/15:21 Family Phys: Charge Code: 699053 Physician: [place] Order #: [id number] Dose#: 8.80 Approved by: Susan Dorado MD on 10/18/2024 at 16:13 Normal [facility] D-Dimer Quantitative (DVT/PE )on 10-15-2024 D-DIMER QUANT 0.27 FEU/ug/m Normal 0.27-0.49 [facility] Comment on above: Order Comment: 1 Result Comment: NORM AL D-Dimer level (<0.50) indicates no DVT or PE. Performed By: #### L 503.6550, L501.4020, L3100.7870, L101.9900, L503.6150, L500.4050, L501.5200, L3400.4800, L501.6710, L100.0100 #### [facility] [address] [place], [address] Prothrombin Time w/INRon INR Coag (PPP) [Relative time] 1.1 {INR} Normal [facility] Comment on above: Order Comment: 1 Performed By: #### L 503.6550, L501.4020, L3100.7870, L101.9900, L503.6150, L500.4050, L501.5200, L3400.4800, L501.6710, L100.0100 #### [facility] [address] [place], [place], [id number] PT Coag (PPP) [Time] 13.9 s Normal 11.7-14.9 [facility] Comment on above: Order Comment: 1 Performed By: #### L 503.6550, L501.4020, L3100.7870, L101.9900, L503.6150, L500.4050, L501.5200, L3400.4800, L501.6710, L100.0100 #### [facility] [address] [place], [place], [id number] CT CHEST W/O CONTRASTon 10-02 CT CHEST W/O CONTRAST [address] [address] Patient: UZMA CROSS Phone#: : 1975 Age: 49 Gender: M Pt. Type: Out Account: [id number] Location: Ordering: CRISTINA CROSS Exam Date: 10/13/2024/11:14 Family Phys: Charge Code: 644471 Physician: [place] Order #: [id number] Dose#: 9.60 PROCEDURE: CT CHEST WITHOUT CONTRAST COMPARISON: None. INDICATIONS: Left basilar atelectasis. TECHNIQUE: CT images were created without the administration of contrast material. All CT scans at this facility use dose modulation, iterative reconstruction, and/or weight based dosing when appropriate to reduce radiation dose to as low as reasonably achievable. IV CONTRAST: No IV contrast used,0ml TOTAL DOSE: 9.60 CTDIvol(mGy) FINDINGS: LUNGS: Left basilar linear atelectasis is present. No visible pulmonary disease. VASCULATURE: Normal. Thrombus cannot be excluded without intravenous contrast. EBONI: Normal. No mass or adenopathy. MEDIASTINUM: Normal. No mass or adenopathy. CARDIAC: Normal. No enlargement, pericardial thickening, or significant calcification. PLEURA: Normal. No mass or effusion. AORTA: Normal. No aneurysm. CHEST WALL: Normal. No mass or axillary adenopathy. LIMITED ABDOMEN: A 6 millimeter gallbladder calculus is present. BONES: Normal. No bony lesion or fracture. OTHER: Negative. CONCLUSION: 1. 6 millimeter gallbladder calculus is present. 2. There is no evidence of acute thoracic abnormality. Dictated by: Susan Dorado MD on 10/13/2024 at 12:56 Approved by: Susan Dorado MD on 10/13/2024 at 12:57 Normal [facility] 10-13-2024 [place] [address] Patient: UZMA CROSS Phone#: : 1975 Age: 49 Gender: M Pt. Type: Out Account: [id number] Location: Ordering: CRISTINA CROSS Exam Date: 10/13/2024/11:40 Family Phys: Charge Code: [id number] Physician: [place] Order #: [id number] Dose#: PROCEDURE: CHEST WALL ULTRASOUND COMPARISON: [facility], CT, CHEST W/O CON, 10/13/2024, 11:14. INDICATIONS: Chest pain. History left basilar atelectasis. FINDINGS: IMAGED AREA: Left posterior chest wall. ABNORMALITIES: None visible. No mass or fluid collection in the soft tissues of the left posterior thorax. No pleural effusion. OTHER: Negative. CONCLUSION: 1. No pleural effusion. Dictated by: Estefani Dumont MD on 10/13/2024 at 13:36 Approved by: Estefani Dumont MD on 10/13/2024 at 13:47 Normal [facility] Testosterone Freeon 10-03-20 24 TESTOSTER FREE 15.8 pg/mL Normal 7.2-24.0 [facility] Comment on above: Result Comment: Perf ormed at: [facility] Lab[address] [id number] Chief Controller Station: Rashi Givens MD, Phone: [phone] Performed By: #### L 503.6550, L501.4020, L3100.7870, L101.9900, L503.6150, L500.4050, L501.5200, L3400.4800, L501.6710, L100.0100 #### [facility] [address] [place], [address] CRP, High Sensitivity [id number] on 10-01-2024 CRP, HIGH SENS 9.37 mg/L High 0.00-3.00 [facility] Comment on above: Result Comment: Rela tive Risk for Future Cardiovascular Event Low <1.00 Average 1.00 - 3.00 High >3.00 Performed at: [facility] [address] [id number] Chief Controller Station: Tomasz Marie PhD, Phone: [phone] Performed By: #### L 503.6550, L501.4020, L3100.7870, L101.9900, L503.6150, L500.4050, L501.5200, L3400.4800, L501.6710, L100.0100 #### [facility] [address] [place], [address] CBC W/Diff, Automatedon 11-2 -2023 Absolute Lymph 2.14 X10 3/uL Normal 0.83-4.51 [facility] Comment on above: Performed By: #### L 503.6550, L501.4020, L3100.7870, L101.9900, L503.6150, L500.4050, L501.5200, L3400.4800, L501.6710, L100.0100 #### [facility] [address] [place], [address] Absolute Neut 5.5 X10 3/uL Normal 2.0-7.7 [facility] Comment on above: Performed By: #### L 503.6550, L501.4020, L3100.7870, L101.9900, L503.6150, L500.4050, L501.5200, L3400.4800, L501.6710, L100.0100 #### [facility] [address] [place], [address] Basophils/100 WBC (Bld) 0.5 % Normal 0-1 [facility] Comment on above: Performed By: #### L 503.6550, L501.4020, L3100.7870, L101.9900, L503.6150, L500.4050, L501.5200, L3400.4800, L501.6710, L100.0100 #### [facility] [address] [place], [address] Eosinophils/100 WBC (Bld) 3.8 % Normal 0-5 [facility] Comment on above: Performed By: #### L 503.6550, L501.4020, L3100.7870, L101.9900, L503.6150, L500.4050, L501.5200, L3400.4800, L501.6710, L100.0100 #### [facility] [address] [place], [address] Erythrocyte distribution width (RBC) [Ratio] 12.7 % Normal 11.6-14.6 [facility] Comment on above: Performed By: #### L 503.6550, L501.4020, L3100.7870, L101.9900, L503.6150, L500.4050, L501.5200, L3400.4800, L501.6710, L100.0100 #### [facility] [address] [place], [address] Hematocrit (Bld) [Volume fraction] 44.2 % Normal 40-54 [facility] Comment on above: Performed By: #### L 503.6550, L501.4020, L3100.7870, L101.9900, L503.6150, L500.4050, L501.5200, L3400.4800, L501.6710, L100.0100 #### [facility] [address] [place], [address] Hemoglobin (Bld) [Mass/Vol] 14.7 g/dL Normal 13.0-16.5 [facility] Comment on above: Performed By: #### L 503.6550, L501.4020, L3100.7870, L101.9900, L503.6150, L500.4050, L501.5200, L3400.4800, L501.6710, L100.0100 #### [facility] [address] [place], [address] IG% 0.200 Normal 0.0-0.9 [facility] Comment on above: Result Comment: IG% - Immature Granulocytes (promyelocytes, myelocytes and metamyelocytes) > 1% indicates that a LEFT SHIFT is Present. Performed By: #### L 503.6550, L501.4020, L3100.7870, L101.9900, L503.6150, L500.4050, L501.5200, L3400.4800, L501.6710, L100.0100 #### [facility] [address] [place], [address] Lymphocytes/100 WBC (Bld) 24.7 % Normal 19-41 [facility] Comment on above: Performed By: #### L 503.6550, L501.4020, L3100.7870, L101.9900, L503.6150, L500.4050, L501.5200, L3400.4800, L501.6710, L100.0100 #### [facility] [address] [place], [address] MCH (RBC) [Entitic mass] 28.6 pg Normal 27.0-32.0 [facility] Comment on above: Performed By: #### L 503.6550, L501.4020, L3100.7870, L101.9900, L503.6150, L500.4050, L501.5200, L3400.4800, L501.6710, L100.0100 #### [facility] [address] [place], [address] MCHC (RBC) [Mass/Vol] 33.3 g/dL Normal 32-36 [facility] Comment on above: Performed By: #### L 503.6550, L501.4020, L3100.7870, L101.9900, L503.6150, L500.4050, L501.5200, L3400.4800, L501.6710, L100.0100 #### [facility] [address] [place], [address] MCV (RBC) [Entitic vol] 86.0 fL Normal 80-94 [facility] Comment on above: Performed By: #### L 503.6550, L501.4020, L3100.7870, L101.9900, L503.6150, L500.4050, L501.5200, L3400.4800, L501.6710, L100.0100 #### [facility] [address] [place], [address] Monocytes/100 WBC (Bld) 7.3 % Normal 0-10 [facility] Comment on above: Performed By: #### L 503.6550, L501.4020, L3100.7870, L101.9900, L503.6150, L500.4050, L501.5200, L3400.4800, L501.6710, L100.0100 #### [facility] [address] [place], [address] Neutrophils/100 WBC (Bld) 63.5 % Normal 47-70 [facility] Comment on above: Performed By: #### L 503.6550, L501.4020, L3100.7870, L101.9900, L503.6150, L500.4050, L501.5200, L3400.4800, L501.6710, L100.0100 #### [facility] [address] [place], [address] Nucleated RBC (Bld) [#/Vol] 0 10*3/uL Normal 0-5 [facility] Comment on above: Performed By: #### L 503.6550, L501.4020, L3100.7870, L101.9900, L503.6150, L500.4050, L501.5200, L3400.4800, L501.6710, L100.0100 #### [facility] [address] [place], [address] Platelet mean volume (Bld) [Entitic vol] 9.0 fL Normal 6.2-12.0 [facility] Comment on above: Performed By: #### L 503.6550, L501.4020, L3100.7870, L101.9900, L503.6150, L500.4050, L501.5200, L3400.4800, L501.6710, L100.0100 #### [facility] [address] [place], [address] Platelets (Bld) [#/Vol] 301 10*3/uL Normal 150-450 [facility] Comment on above: Performed By: #### L 503.6550, L501.4020, L3100.7870, L101.9900, L503.6150, L500.4050, L501.5200, L3400.4800, L501.6710, L100.0100 #### [facility] [address] [place], [address] RBC (Bld) [#/Vol] 5.14 10*6/uL Normal 4.6-6.2 [facility] Comment on above: Performed By: #### L 503.6550, L501.4020, L3100.7870, L101.9900, L503.6150, L500.4050, L501.5200, L3400.4800, L501.6710, L100.0100 #### [facility] [address] [place], [address] RDW SD 39.5 fl Normal 35.1-43.9 [facility] Comment on above: Performed By: #### L 503.6550, L501.4020, L3100.7870, L101.9900, L503.6150, L500.4050, L501.5200, L3400.4800, L501.6710, L100.0100 #### [facility] [address] [place], [address] WBC (Bld) [#/Vol] 8.7 10*3/uL Normal 4.4-11.0 [facility] Comment on above: Performed By: #### L 503.6550, L501.4020, L3100.7870, L101.9900, L503.6150, L500.4050, L501.5200, L3400.4800, L501.6710, L100.0100 #### [facility] [address] [place], [place], [id number] CRPon 09-28-2024 C-REACTIVE PROT 13.80 mg/L High 0.0-3.0 [facility] Comment on above: Order Comment: 1 Result Comment: C-Re active Protein (CRP) provides useful information for the diagnosis, therapy and monitoring of inflammatory processes and associated diseases. For the evaluation of Relative Risk for Cardiovascular Disease, a High Sensitivity CRP (HSCRP) should be ordered. Performed By: #### L 503.6550, L501.4020, L3100.7870, L101.9900, L503.6150, L500.4050, L501.5200, L3400.4800, L501.6710, L100.0100 #### [facility] [address] [place], [place], [id number] Chest PA and Lateralon 09-28 Chest PA and Lateral [facility] [address] [place] [address] Chest PA and Lateral MR#: [id number] Acct: [id number] Name: UZMA CROSS Rep #: [id number] : 1975 M 49 From: Teddy Bobby DO PCP: Dr. Anmol Raza MD Status: DEP AMB Study: Chest PA and Lateral Date of Exam: 09/28/24 Exam# [id number] Ordering Dr: Cristina Cross SHEEP OR CALF GRADER SHEEP OR CALF GRADER-C [id number] INDICATION: PAIN EXAMINATION/TECHNIQUE: X-RAY - XR Chest 2 Views COMPARISON: FINDINGS: LINES/DEVICES: None. LUNGS: No consolidation, edema or effusion. Left basilar atelectasis. No pneumothorax. MEDIASTINUM AND CARDIOVASCULAR STRUCTURES: Cardiac silhouette not enlarged. Central airways and mediastinal contour are unremarkable. BONES AND SOFT TISSUES: Unremarkable. RAD/Chest PA and Lateral IMPRESSION: Left basilar atelectasis. Electronically Signed: Teddy Bobby DO at 8:57 EST , CC: KRYSTIAN Cross; Dr. Anmol Raza MD General Farm Manager: Signed Normal [facility] Comprehensive Metabolic Prof ilon 09-28-2024 Albumin [Mass/Vol] 4.1 g/dL Normal 3.2-5.0 [facility] Comment on above: Order Comment: 1 Performed By: #### L 503.6550, L501.4020, L3100.7870, L101.9900, L503.6150, L500.4050, L501.5200, L3400.4800, L501.6710, L100.0100 #### [facility] [address] [place], [place], [address] Albumin/Globulin [Mass ratio] 1.5 {ratio} Normal 0.9-2.4 [facility] Comment on above: Order Comment: 1 Performed By: #### L 503.6550, L501.4020, L3100.7870, L101.9900, L503.6150, L500.4050, L501.5200, L3400.4800, L501.6710, L100.0100 #### [facility] [address] [place], [place], [address] ALK P 52 U/L Normal 45-117 [facility] Comment on above: Order Comment: 1 Performed By: #### L 503.6550, L501.4020, L3100.7870, L101.9900, L503.6150, L500.4050, L501.5200, L3400.4800, L501.6710, L100.0100 #### [facility] [address] [place], [place], [id number] ALT [Catalytic activity/Vol] 25 U/L Normal 16-61 [facility] Comment on above: Order Comment: 1 Performed By: #### L 503.6550, L501.4020, L3100.7870, L101.9900, L503.6150, L500.4050, L501.5200, L3400.4800, L501.6710, L100.0100 #### [facility] [address] [place], [place], [address] AST [Catalytic activity/Vol] 22 U/L Normal 15-37 [facility] Comment on above: Order Comment: 1 Performed By: #### L 503.6550, L501.4020, L3100.7870, L101.9900, L503.6150, L500.4050, L501.5200, L3400.4800, L501.6710, L100.0100 #### [facility] [address] [place], [place], [address] Bilirubin [Mass/Vol] 0.40 mg/dL Normal 0.20-1.00 [facility] Comment on above: Order Comment: 1 Result Comment: For patients on eltrombopag therapy, use of Dimension [place] TBIL is not recommended. Performed By: #### L 503.6550, L501.4020, L3100.7870, L101.9900, L503.6150, L500.4050, L501.5200, L3400.4800, L501.6710, L100.0100 #### [facility] [address] [place], [place], [address] BUN/CRE 15.3 RATIO Normal 10-20 [facility] Comment on above: Order Comment: 1 Performed By: #### L 503.6550, L501.4020, L3100.7870, L101.9900, L503.6150, L500.4050, L501.5200, L3400.4800, L501.6710, L100.0100 #### [facility] [address] [place], [address] CA,Total 9.0 mg/dL Normal 8.5-10.1 [facility] Comment on above: Order Comment: 1 Performed By: #### L 503.6550, L501.4020, L3100.7870, L101.9900, L503.6150, L500.4050, L501.5200, L3400.4800, L501.6710, L100.0100 #### [facility] [address] [place], [address] Chloride [Moles/Vol] 107 mmol/L Normal 98-107 [facility] Comment on above: Order Comment: 1 Performed By: #### L 503.6550, L501.4020, L3100.7870, L101.9900, L503.6150, L500.4050, L501.5200, L3400.4800, L501.6710, L100.0100 #### [facility] [address] [place], [address] CO2 [Moles/Vol] 26.0 mmol/L Normal 21.0-32.0 [facility] Comment on above: Order Comment: 1 Performed By: #### L 503.6550, L501.4020, L3100.7870, L101.9900, L503.6150, L500.4050, L501.5200, L3400.4800, L501.6710, L100.0100 #### [facility] [address] [place], [address] Creatinine [Mass/Vol] 1.18 mg/dL Normal 0.70-1.30 [facility] Comment on above: Order Comment: 1 Result Comment: The validity of the calculated GFR GFRAA in patients over 70 years has not been determined. Clinical correlation is essential. Performed By: #### L 503.6550, L501.4020, L3100.7870, L101.9900, L503.6150, L500.4050, L501.5200, L3400.4800, L501.6710, L100.0100 #### [facility] [address] [place], [address] EST GFR - AA 84 mL/min Normal >60 [facility] Comment on above: Order Comment: 1 Result Comment: Afri can [place] GFR Calc Performed By: #### L 503.6550, L501.4020, L3100.7870, L101.9900, L503.6150, L500.4050, L501.5200, L3400.4800, L501.6710, L100.0100 #### [facility] [address] [place], [address] GAP 5 Normal 5-15 [facility] Comment on above: Order Comment: 1 Performed By: #### L 503.6550, L501.4020, L3100.7870, L101.9900, L503.6150, L500.4050, L501.5200, L3400.4800, L501.6710, L100.0100 #### [facility] [address] [place], [place], [id number] (749) GFR/1.73 sq M.predicted among non-blacks MDRD (S/P/Bld) [Vol rate/Area] 69 mL/min/{1.73_m2} Normal >60 [facility] Comment on above: Order Comment: 1 Result Comment: Non- GFR Calc Performed By: #### L 503.6550, L501.4020, L3100.7870, L101.9900, L503.6150, L500.4050, L501.5200, L3400.4800, L501.6710, L100.0100 #### [facility] [address] [place], [address] Globulin (S) [Mass/Vol] 2.8 g/dL Normal 2.2-4.2 [facility] Comment on above: Order Comment: 1 Performed By: #### L 503.6550, L501.4020, L3100.7870, L101.9900, L503.6150, L500.4050, L501.5200, L3400.4800, L501.6710, L100.0100 #### [facility] [address] [place], [address] Glucose [Mass/Vol] 91 mg/dL Normal 74-106 [facility] Comment on above: Order Comment: 1 Performed By: #### L 503.6550, L501.4020, L3100.7870, L101.9900, L503.6150, L500.4050, L501.5200, L3400.4800, L501.6710, L100.0100 #### [facility] [address] [place], [address] Potassium [Moles/Vol] 4.5 mmol/L Normal 3.5-5.1 [facility] Comment on above: Order Comment: 1 Performed By: #### L 503.6550, L501.4020, L3100.7870, L101.9900, L503.6150, L500.4050, L501.5200, L3400.4800, L501.6710, L100.0100 #### [facility] [address] [place], [address] Sodium [Moles/Vol] 138 mmol/L Normal 136-145 [facility] Comment on above: Order Comment: 1 Performed By: #### L 503.6550, L501.4020, L3100.7870, L101.9900, L503.6150, L500.4050, L501.5200, L3400.4800, L501.6710, L100.0100 #### [facility] [address] [place], [address] T PROT 6.9 g/dL Normal 6.4-8.2 [facility] Comment on above: Order Comment: 1 Performed By: #### L 503.6550, L501.4020, L3100.7870, L101.9900, L503.6150, L500.4050, L501.5200, L3400.4800, L501.6710, L100.0100 #### [facility] [address] [place], [place], [id number] Urea nitrogen [Mass/Vol] 18 mg/dL Normal 7-18 [facility] Comment on above: Order Comment: 1 Performed By: #### L 503.6550, L501.4020, L3100.7870, L101.9900, L503.6150, L500.4050, L501.5200, L3400.4800, L501.6710, L100.0100 #### [facility] Laboratory [address] [place], [place], [id number] Erythrocyte Sed Rateon 09-28 SED RATE 3 mm/hr Normal 0-20 [facility] Comment on above: Performed By: #### L 503.6550, L501.4020, L3100.7870, L101.9900, L503.6150, L500.4050, L501.5200, L3400.4800, L501.6710, L100.0100 #### [facility] Laboratory [address] [place], [place], [id number] Ferritinon 09-28-2024 Ferritin [Mass/Vol] 89 ng/mL Normal 26-388 [facility] Comment on above: Order Comment: 1 Performed By: #### L 503.6550, L501.4020, L3100.7870, L101.9900, L503.6150, L500.4050, L501.5200, L3400.4800, L501.6710, L100.0100 #### [facility] Laboratory [address] [place], [address] Ironon 09-28-2024 Iron [Mass/Vol] 37 ug/dL Low 65-175 [facility] Comment on above: Order Comment: 1 Performed By: #### L 503.6550, L501.4020, L3100.7870, L101.9900, L503.6150, L500.4050, L501.5200, L3400.4800, L501.6710, L100.0100 #### [facility] Laboratory [address] [place], [place], [id number] L501.4020on 09-28-2024 TROPONIN-I HS 3 pg/mL Normal 3.0-78.0 [facility] Comment on above: Order Comment: 1 Result Comment: Ivanna major Note: New Test Units and Gender Specific Reference Ranges. For more information see Policy Stat Procedure [place] High Sensitivity Troponin (TNIH) and attachments. Performed By: #### L 503.6550, L501.4020, L3100.7870, L101.9900, L503.6150, L500.4050, L501.5200, L3400.4800, L501.6710, L100.0100 #### [facility] Laboratory [address] [place], [address] Magnesiumon 09-28-2024 Magnesium [Mass/Vol] 2.2 mg/dL Normal 1.6-2.6 [facility] Comment on above: Order Comment: 1 Performed By: #### L 503.6550, L501.4020, L3100.7870, L101.9900, L503.6150, L500.4050, L501.5200, L3400.4800, L501.6710, L100.0100 #### [facility] Laboratory [address] [place], [address] DHEA Sulfateon 08-29-2024 DHEA SULFATE 386.0 ug/dL High 71.6-375.4 [facility] Comment on above: Order Comment: 1 Result Comment: Perf ormed at: [facility] [address] [id number] Chief Controller Station: Tomasz Marie PhD, Phone: [phone] Performed By: #### L 503.6550, L501.4020, L3100.7870, L101.9900, L503.6150, L500.4050, L501.5200, L3400.4800, L501.6710, L100.0100 #### [facility] Laboratory [address] [place], [address] PSA Total (Rflx Free)on 08-03 COMMENT Comment Normal . [facility] Comment on above: Order Comment: 1 Result Comment: The percent free PSA is performed on a reflex basis only when the total PSA is between 4.0 and 10.0 ng/mL. Performed By: #### L 503.6550, L501.4020, L3100.7870, L101.9900, L503.6150, L500.4050, L501.5200, L3400.4800, L501.6710, L100.0100 #### [facility] Laboratory [address] [place], [place], [phone] ([phone] PSA, TOTAL 1.1 ng/mL Normal 0.0-4.0 [facility] Comment on above: Order Comment: 1 Result Comment: Layton clement ECLANGY methodology. According to the [place] [employer], Serum PSA should decrease and remain at undetectable levels after radical prostatectomy. The AUA defines biochemical recurrence as an initial PSA value 0.2 ng/mL or greater followed by a subsequent confirmatory PSA value 0.2 ng/mL or greater. Values obtained with different assay methods or kits cannot be used interchangeably. Results cannot be interpreted as absolute evidence of the presence or absence of malignant disease. Performed By: #### L 503.6550, L501.4020, L3100.7870, L101.9900, L503.6150, L500.4050, L501.5200, L3400.4800, L501.6710, L100.0100 #### [facility] Laboratory [address] [place], [address] CBC W/Diff, Automatedon 08-03 Absolute Lymph 2.14 X10 3/uL Normal 0.83-4.51 [facility] Comment on above: Performed By: #### L 503.6550, L501.4020, L3100.7870, L101.9900, L503.6150, L500.4050, L501.5200, L3400.4800, L501.6710, L100.0100 #### [facility] [address] [place], [address] Absolute Neut 4.2 X10 3/uL Normal 2.0-7.7 [facility] Comment on above: Performed By: #### L 503.6550, L501.4020, L3100.7870, L101.9900, L503.6150, L500.4050, L501.5200, L3400.4800, L501.6710, L100.0100 #### [facility] [address] [place], [place], [phone] ([phone] Basophils/100 WBC (Bld) 0.6 % Normal 0-1 [facility] Comment on above: Performed By: #### L 503.6550, L501.4020, L3100.7870, L101.9900, L503.6150, L500.4050, L501.5200, L3400.4800, L501.6710, L100.0100 #### [facility] [address] [place], [address] Eosinophils/100 WBC (Bld) 3.7 % Normal 0-5 [facility] Comment on above: Performed By: #### L 503.6550, L501.4020, L3100.7870, L101.9900, L503.6150, L500.4050, L501.5200, L3400.4800, L501.6710, L100.0100 #### [facility] [address] [place], [address] Erythrocyte distribution width (RBC) [Ratio] 12.3 % Normal 11.6-14.6 [facility] Comment on above: Performed By: #### L 503.6550, L501.4020, L3100.7870, L101.9900, L503.6150, L500.4050, L501.5200, L3400.4800, L501.6710, L100.0100 #### [facility] [address] [place], [address] Hematocrit (Bld) [Volume fraction] 45.8 % Normal 40-54 [facility] Comment on above: Performed By: #### L 503.6550, L501.4020, L3100.7870, L101.9900, L503.6150, L500.4050, L501.5200, L3400.4800, L501.6710, L100.0100 #### [facility] [address] [facility] [place], [address] Hemoglobin (Bld) [Mass/Vol] 15.1 g/dL Normal 13.0-16.5 [facility] Comment on above: Performed By: #### L 503.6550, L501.4020, L3100.7870, L101.9900, L503.6150, L500.4050, L501.5200, L3400.4800, L501.6710, L100.0100 #### [facility] [address] [facility] [place], [address] IG% 0.300 Normal 0.0-0.9 [facility] Comment on above: Result Comment: IG% - Immature Granulocytes (promyelocytes, myelocytes and metamyelocytes) > 1% indicates that a LEFT SHIFT is Present. Performed By: #### L 503.6550, L501.4020, L3100.7870, L101.9900, L503.6150, L500.4050, L501.5200, L3400.4800, L501.6710, L100.0100 #### [facility] [address] [facility] [place], [address] Lymphocytes/100 WBC (Bld) 30.1 % Normal 19-41 [facility] Comment on above: Performed By: #### L 503.6550, L501.4020, L3100.7870, L101.9900, L503.6150, L500.4050, L501.5200, L3400.4800, L501.6710, L100.0100 #### [facility] [address] [place], [address] MCH (RBC) [Entitic mass] 27.9 pg Normal 27.0-32.0 [facility] Comment on above: Performed By: #### L 503.6550, L501.4020, L3100.7870, L101.9900, L503.6150, L500.4050, L501.5200, L3400.4800, L501.6710, L100.0100 #### [facility] [address] [place], [address] MCHC (RBC) [Mass/Vol] 33.0 g/dL Normal 32-36 [facility] Comment on above: Performed By: #### L 503.6550, L501.4020, L3100.7870, L101.9900, L503.6150, L500.4050, L501.5200, L3400.4800, L501.6710, L100.0100 #### [facility] [address] [place], [address] MCV (RBC) [Entitic vol] 84.5 fL Normal 80-94 [facility] Comment on above: Performed By: #### L 503.6550, L501.4020, L3100.7870, L101.9900, L503.6150, L500.4050, L501.5200, L3400.4800, L501.6710, L100.0100 #### [facility] [address] [place], [address] Monocytes/100 WBC (Bld) 6.2 % Normal 0-10 [facility] Comment on above: Performed By: #### L 503.6550, L501.4020, L3100.7870, L101.9900, L503.6150, L500.4050, L501.5200, L3400.4800, L501.6710, L100.0100 #### [facility] [address] [place], [address] Neutrophils/100 WBC (Bld) 59.1 % Normal 47-70 [facility] Comment on above: Performed By: #### L 503.6550, L501.4020, L3100.7870, L101.9900, L503.6150, L500.4050, L501.5200, L3400.4800, L501.6710, L100.0100 #### [facility] [address] [place], [place], [phone] Nucleated RBC (Bld) [#/Vol] 0 10*3/uL Normal 0-5 [facility] Comment on above: Performed By: #### L 503.6550, L501.4020, L3100.7870, L101.9900, L503.6150, L500.4050, L501.5200, L3400.4800, L501.6710, L100.0100 #### [facility] [address] [place], [place], [phone] Platelet mean volume (Bld) [Entitic vol] 9.1 fL Normal 6.2-12.0 [facility] Comment on above: Performed By: #### L 503.6550, L501.4020, L3100.7870, L101.9900, L503.6150, L500.4050, L501.5200, L3400.4800, L501.6710, L100.0100 #### [facility] [address] [place], [address] Platelets (Bld) [#/Vol] 337 10*3/uL Normal 150-450 [facility] Comment on above: Performed By: #### L 503.6550, L501.4020, L3100.7870, L101.9900, L503.6150, L500.4050, L501.5200, L3400.4800, L501.6710, L100.0100 #### [facility] [address] [place], [address] RBC (Bld) [#/Vol] 5.42 10*6/uL Normal 4.6-6.2 [facility] Comment on above: Performed By: #### L 503.6550, L501.4020, L3100.7870, L101.9900, L503.6150, L500.4050, L501.5200, L3400.4800, L501.6710, L100.0100 #### [facility] [address] [place], [address] RDW SD 37.6 fl Normal 35.1-43.9 [facility] Comment on above: Performed By: #### L 503.6550, L501.4020, L3100.7870, L101.9900, L503.6150, L500.4050, L501.5200, L3400.4800, L501.6710, L100.0100 #### [facility] [address] [place], [address] WBC (Bld) [#/Vol] 7.1 10*3/uL Normal 4.4-11.0 [facility] Comment on above: Performed By: #### L 503.6550, L501.4020, L3100.7870, L101.9900, L503.6150, L500.4050, L501.5200, L3400.4800, L501.6710, L100.0100 #### [facility] [address] [place], [address] CRPon 08-25-2024 C-REACTIVE PROT < 2.90 Normal 0.0-3.0 [facility] Comment on above: Result Comment: C-Re active Protein (CRP) provides useful information for the diagnosis, therapy and monitoring of inflammatory processes and associated diseases. For the evaluation of Relative Risk for Cardiovascular Disease, a High Sensitivity CRP (HSCRP) should be ordered. Performed By: #### L 503.6550, L501.4020, L3100.7870, L101.9900, L503.6150, L500.4050, L501.5200, L3400.4800, L501.6710, L100.0100 #### [facility] [address] [facility] [place], [address] Comprehensive Metabolic Prof ilon 08-25-2024 Albumin [Mass/Vol] 4.4 g/dL Normal 3.2-5.0 [facility] Comment on above: Performed By: #### L 503.6550, L501.4020, L3100.7870, L101.9900, L503.6150, L500.4050, L501.5200, L3400.4800, L501.6710, L100.0100 #### [facility] [address] [place], [address] Albumin/Globulin [Mass ratio] 1.6 {ratio} Normal 0.9-2.4 [facility] Comment on above: Performed By: #### L 503.6550, L501.4020, L3100.7870, L101.9900, L503.6150, L500.4050, L501.5200, L3400.4800, L501.6710, L100.0100 #### [facility] [address] [place], [address] ALK P 55 U/L Normal 45-117 [facility] Comment on above: Performed By: #### L 503.6550, L501.4020, L3100.7870, L101.9900, L503.6150, L500.4050, L501.5200, L3400.4800, L501.6710, L100.0100 #### [facility] [address] [place], [address] ALT [Catalytic activity/Vol] 30 U/L Normal 16-61 [facility] Comment on above: Performed By: #### L 503.6550, L501.4020, L3100.7870, L101.9900, L503.6150, L500.4050, L501.5200, L3400.4800, L501.6710, L100.0100 #### [facility] [address] [facility] [place], [place], [phone] AST [Catalytic activity/Vol] 20 U/L Normal 15-37 [facility] Comment on above: Performed By: #### L 503.6550, L501.4020, L3100.7870, L101.9900, L503.6150, L500.4050, L501.5200, L3400.4800, L501.6710, L100.0100 #### [facility] [address] [place], [place], [phone] Bilirubin [Mass/Vol] 0.60 mg/dL Normal 0.20-1.00 [facility] Comment on above: Result Comment: For patients on eltrombopag therapy, use of Dimension [place] TBIL is not recommended. Performed By: #### L 503.6550, L501.4020, L3100.7870, L101.9900, L503.6150, L500.4050, L501.5200, L3400.4800, L501.6710, L100.0100 #### [facility] [address] [place], [address] BUN/CRE 15.3 RATIO Normal 10-20 [facility] Comment on above: Performed By: #### L 503.6550, L501.4020, L3100.7870, L101.9900, L503.6150, L500.4050, L501.5200, L3400.4800, L501.6710, L100.0100 #### [facility] [address] [place], [address] CA,Total 9.5 mg/dL Normal 8.5-10.1 [facility] Comment on above: Performed By: #### L 503.6550, L501.4020, L3100.7870, L101.9900, L503.6150, L500.4050, L501.5200, L3400.4800, L501.6710, L100.0100 #### [facility] [address] [facility] [place], [address] Chloride [Moles/Vol] 108 mmol/L High 98-107 [facility] Comment on above: Performed By: #### L 503.6550, L501.4020, L3100.7870, L101.9900, L503.6150, L500.4050, L501.5200, L3400.4800, L501.6710, L100.0100 #### [facility] [address] [facility] [place], [address] CO2 [Moles/Vol] 25.0 mmol/L Normal 21.0-32.0 [facility] Comment on above: Performed By: #### L 503.6550, L501.4020, L3100.7870, L101.9900, L503.6150, L500.4050, L501.5200, L3400.4800, L501.6710, L100.0100 #### [facility] [address] [place], [address] Creatinine [Mass/Vol] 1.18 mg/dL Normal 0.70-1.30 [facility] Comment on above: Result Comment: The validity of the calculated GFR GFRAA in patients over 70 years has not been determined. Clinical correlation is essential. Performed By: #### L 503.6550, L501.4020, L3100.7870, L101.9900, L503.6150, L500.4050, L501.5200, L3400.4800, L501.6710, L100.0100 #### [facility] [address] [place], [place], [phone] (575) EST GFR - AA 84 mL/min Normal >60 [facility] Comment on above: Result Comment: Afri can [place] GFR Calc Performed By: #### L 503.6550, L501.4020, L3100.7870, L101.9900, L503.6150, L500.4050, L501.5200, L3400.4800, L501.6710, L100.0100 #### [facility] [address] [place], [place], [id number] GAP 5 Normal 5-15 [facility] Comment on above: Performed By: #### L 503.6550, L501.4020, L3100.7870, L101.9900, L503.6150, L500.4050, L501.5200, L3400.4800, L501.6710, L100.0100 #### [facility] [address] [place], [place], [phone] (427) GFR/1.73 sq M.predicted among non-blacks MDRD (S/P/Bld) [Vol rate/Area] 69 mL/min/{1.73_m2} Normal >60 [facility] Comment on above: Result Comment: Non- GFR Calc Performed By: #### L 503.6550, L501.4020, L3100.7870, L101.9900, L503.6150, L500.4050, L501.5200, L3400.4800, L501.6710, L100.0100 #### [facility] [address] [place], [place], [phone] (154) Globulin (S) [Mass/Vol] 2.8 g/dL Normal 2.2-4.2 [facility] Comment on above: Performed By: #### L 503.6550, L501.4020, L3100.7870, L101.9900, L503.6150, L500.4050, L501.5200, L3400.4800, L501.6710, L100.0100 #### [facility] [address] [place], [address] Glucose [Mass/Vol] 98 mg/dL Normal 74-106 [facility] Comment on above: Performed By: #### L 503.6550, L501.4020, L3100.7870, L101.9900, L503.6150, L500.4050, L501.5200, L3400.4800, L501.6710, L100.0100 #### [facility] [address] [place], [address] Potassium [Moles/Vol] 4.4 mmol/L Normal 3.5-5.1 [facility] Comment on above: Performed By: #### L 503.6550, L501.4020, L3100.7870, L101.9900, L503.6150, L500.4050, L501.5200, L3400.4800, L501.6710, L100.0100 #### [facility] [address] [place], [address] Sodium [Moles/Vol] 137 mmol/L Normal 136-145 [facility] Comment on above: Performed By: #### L 503.6550, L501.4020, L3100.7870, L101.9900, L503.6150, L500.4050, L501.5200, L3400.4800, L501.6710, L100.0100 #### [facility] [address] [place], [address] T PROT 7.2 g/dL Normal 6.4-8.2 [facility] Comment on above: Performed By: #### L 503.6550, L501.4020, L3100.7870, L101.9900, L503.6150, L500.4050, L501.5200, L3400.4800, L501.6710, L100.0100 #### [facility] [address] [place], [address] Urea nitrogen [Mass/Vol] 18 mg/dL Normal -18 [facility] Comment on above: Performed By: #### L 503.6550, L501.4020, L3100.7870, L101.9900, L503.6150, L500.4050, L501.5200, L3400.4800, L501.6710, L100.0100 #### [facility] [address] [place], [place], [address] Erythrocyte Sed Rateon 08-25 SED RATE < 1 Normal 0-20 [facility] Comment on above: Performed By: #### L 503.6550, L501.4020, L3100.7870, L101.9900, L503.6150, L500.4050, L501.5200, L3400.4800, L501.6710, L100.0100 #### [facility] [address] [place], [place], [address] Testosterone, Serum Totalon 08-25-2024 Testosterone [Mass/Vol] 803.28 ng/dL Normal [facility] Comment on above: Result Comment: CENT RAL 90% REFERENCE RANGES MALE AGE <50 197.44 - 669.58 ng/dL MALE AGE > or = 50 187.72 - 684.19 ng/dL FEMALE AGE <50 8.38 - 35.01 ng/dL FEMALE AGE > or = 50 <7.00 - 35.92 ng/dL Effective as of 05/28/21 Performed By: #### L 503.6550, L501.4020, L3100.7870, L101.9900, L503.6150, L500.4050, L501.5200, L3400.4800, L501.6710, L100.0100 #### [facility] [address] [place], [place], [address] (409) DHEA Sulfateon 04-27-2024 DHEA SULFATE 312.0 ug/dL Normal 71.6-375.4 [facility] Comment on above: Order Comment: 1 Result Comment: Perf ormed at: - [facility] [address] [id number] Chief Controller Station: Tomasz Marie PhD, Phone: [phone] Performed at: - [facility] [address] [id number] Chief Controller Station: Rashi Givens MD, Phone: [phone] Performed By: #### L 503.6550, L501.4020, L3100.7870, L101.9900, L503.6150, L500.4050, L501.5200, L3400.4800, L501.6710, L100.0100 #### [facility] [address] [place], [place], [address] (604) Testosterone, Total / Freeon 04-27-2024 TESTOSTER,FREE 11.38 ng/dL Normal 5.00-21.00 [facility] Comment on above: Order Comment: 1 Performed By: #### L 503.6550, L501.4020, L3100.7870, L101.9900, L503.6150, L500.4050, L501.5200, L3400.4800, L501.6710, L100.0100 #### [facility] [address] [place], [place], [address] (180) TESTOSTERONE, T 358 ng/dL Normal 264-916 [facility] Comment on above: Order Comment: 1 Result Comment: Adul t male reference interval is based on a population of healthy nonobese males (BMI <30) between 19 and 39 years old. Makenna et.al. JCEM 2017,102;2938-5580. PMID: [id number]. Performed By: #### L 503.6550, L501.4020, L3100.7870, L101.9900, L503.6150, L500.4050, L501.5200, L3400.4800, L501.6710, L100.0100 #### [facility] [address] [place], [place], [phone] (682) TESTOSTERONE,%F 3.18 Normal 1.50-4.20 [facility] Comment on above: Order Comment: 1 Performed By: #### L 503.6550, L501.4020, L3100.7870, L101.9900, L503.6150, L500.4050, L501.5200, L3400.4800, L501.6710, L100.0100 #### [facility] [address] [place], [place], [phone] (983) CBC W/Diff, Automatedon 06-2 0-4 Absolute Lymph 1.69 X10 3/uL Normal 0.83-4.51 [facility] Comment on above: Performed By: #### L 503.6550, L501.4020, L3100.7870, L101.9900, L503.6150, L500.4050, L501.5200, L3400.4800, L501.6710, L100.0100 #### [facility] [address] [place], [place], [phone] (405) Absolute Neut 3.5 X10 3/uL Normal 2.0-7.7 [facility] Comment on above: Performed By: #### L 503.6550, L501.4020, L3100.7870, L101.9900, L503.6150, L500.4050, L501.5200, L3400.4800, L501.6710, L100.0100 #### [facility] [address] [place], [place], [phone] (435) Basophils/100 WBC (Bld) 1.0 % Normal 0-1 [facility] Comment on above: Performed By: #### L 503.6550, L501.4020, L3100.7870, L101.9900, L503.6150, L500.4050, L501.5200, L3400.4800, L501.6710, L100.0100 #### [facility] [address] [place], [address] Eosinophils/100 WBC (Bld) 8.2 % High 0-5 [facility] Comment on above: Performed By: #### L 503.6550, L501.4020, L3100.7870, L101.9900, L503.6150, L500.4050, L501.5200, L3400.4800, L501.6710, L100.0100 #### [facility] [address] [place], [place], [phone] (442) Erythrocyte distribution width (RBC) [Ratio] 12.2 % Normal 11.6-14.6 [facility] Comment on above: Performed By: #### L 503.6550, L501.4020, L3100.7870, L101.9900, L503.6150, L500.4050, L501.5200, L3400.4800, L501.6710, L100.0100 #### [facility] [address] [place], [place], [phone] (882) Hematocrit (Bld) [Volume fraction] 45.8 % Normal 40-54 [facility] Comment on above: Performed By: #### L 503.6550, L501.4020, L3100.7870, L101.9900, L503.6150, L500.4050, L501.5200, L3400.4800, L501.6710, L100.0100 #### [facility] [address] [place], [place], [phone] (270) Hemoglobin (Bld) [Mass/Vol] 15.3 g/dL Normal 13.0-16.5 [facility] Comment on above: Performed By: #### L 503.6550, L501.4020, L3100.7870, L101.9900, L503.6150, L500.4050, L501.5200, L3400.4800, L501.6710, L100.0100 #### [facility] [address] [place], [address] IG% 0.500 Normal 0.0-0.9 [facility] Comment on above: Result Comment: IG% - Immature Granulocytes (promyelocytes, myelocytes and metamyelocytes) > 1% indicates that a LEFT SHIFT is Present. Performed By: #### L 503.6550, L501.4020, L3100.7870, L101.9900, L503.6150, L500.4050, L501.5200, L3400.4800, L501.6710, L100.0100 #### [facility] [address] [place], [address] Lymphocytes/100 WBC (Bld) 27.1 % Normal 19-41 [facility] Comment on above: Performed By: #### L 503.6550, L501.4020, L3100.7870, L101.9900, L503.6150, L500.4050, L501.5200, L3400.4800, L501.6710, L100.0100 #### [facility] [address] [place], [address] MCH (RBC) [Entitic mass] 28.8 pg Normal 27.0-32.0 [facility] Comment on above: Performed By: #### L 503.6550, L501.4020, L3100.7870, L101.9900, L503.6150, L500.4050, L501.5200, L3400.4800, L501.6710, L100.0100 #### [facility] [address] [place], [address] MCHC (RBC) [Mass/Vol] 33.4 g/dL Normal 32-36 [facility] Comment on above: Performed By: #### L 503.6550, L501.4020, L3100.7870, L101.9900, L503.6150, L500.4050, L501.5200, L3400.4800, L501.6710, L100.0100 #### [facility] [address] [place], [address] MCV (RBC) [Entitic vol] 86.1 fL Normal 80-94 [facility] Comment on above: Performed By: #### L 503.6550, L501.4020, L3100.7870, L101.9900, L503.6150, L500.4050, L501.5200, L3400.4800, L501.6710, L100.0100 #### [facility] [address] [place], [address] Monocytes/100 WBC (Bld) 6.9 % Normal 0-10 [facility] Comment on above: Performed By: #### L 503.6550, L501.4020, L3100.7870, L101.9900, L503.6150, L500.4050, L501.5200, L3400.4800, L501.6710, L100.0100 #### [facility] [address] [place], [address] Neutrophils/100 WBC (Bld) 56.3 % Normal 47-70 [facility] Comment on above: Performed By: #### L 503.6550, L501.4020, L3100.7870, L101.9900, L503.6150, L500.4050, L501.5200, L3400.4800, L501.6710, L100.0100 #### [facility] [address] [place], [address] Nucleated RBC (Bld) [#/Vol] 0 10*3/uL Normal 0-5 [facility] Comment on above: Performed By: #### L 503.6550, L501.4020, L3100.7870, L101.9900, L503.6150, L500.4050, L501.5200, L3400.4800, L501.6710, L100.0100 #### [facility] [address] [place], [address] Platelet mean volume (Bld) [Entitic vol] 8.8 fL Normal 6.2-12.0 [facility] Comment on above: Performed By: #### L 503.6550, L501.4020, L3100.7870, L101.9900, L503.6150, L500.4050, L501.5200, L3400.4800, L501.6710, L100.0100 #### [facility] [address] [place], [address] Platelets (Bld) [#/Vol] 325 10*3/uL Normal 150-450 [facility] Comment on above: Performed By: #### L 503.6550, L501.4020, L3100.7870, L101.9900, L503.6150, L500.4050, L501.5200, L3400.4800, L501.6710, L100.0100 #### [facility] [address] [place], [address] RBC (Bld) [#/Vol] 5.32 10*6/uL Normal 4.6-6.2 [facility] Comment on above: Performed By: #### L 503.6550, L501.4020, L3100.7870, L101.9900, L503.6150, L500.4050, L501.5200, L3400.4800, L501.6710, L100.0100 #### [facility] [address] [place], [address] RDW SD 38.4 fl Normal 35.1-43.9 [facility] Comment on above: Performed By: #### L 503.6550, L501.4020, L3100.7870, L101.9900, L503.6150, L500.4050, L501.5200, L3400.4800, L501.6710, L100.0100 #### [facility] [address] [place], [place], [address] WBC (Bld) [#/Vol] 6.2 10*3/uL Normal 4.4-11.0 [facility] Comment on above: Performed By: #### L 503.6550, L501.4020, L3100.7870, L101.9900, L503.6150, L500.4050, L501.5200, L3400.4800, L501.6710, L100.0100 #### [facility] [address] [place], [address] Comprehensive Metabolic Prof ilon 04-21-2024 Albumin [Mass/Vol] 4.4 g/dL Normal 3.2-5.0 [facility] Comment on above: Order Comment: N Performed By: #### L 503.6550, L501.4020, L3100.7870, L101.9900, L503.6150, L500.4050, L501.5200, L3400.4800, L501.6710, L100.0100 #### [facility] [address] [place], [address] Albumin/Globulin [Mass ratio] 1.5 {ratio} Normal 0.9-2.4 [facility] Comment on above: Order Comment: N Performed By: #### L 503.6550, L501.4020, L3100.7870, L101.9900, L503.6150, L500.4050, L501.5200, L3400.4800, L501.6710, L100.0100 #### [facility] [address] [place], [address] ALK P 62 U/L Normal 45-117 [facility] Comment on above: Order Comment: N Performed By: #### L 503.6550, L501.4020, L3100.7870, L101.9900, L503.6150, L500.4050, L501.5200, L3400.4800, L501.6710, L100.0100 #### [facility] [address] [place], [address] ALT [Catalytic activity/Vol] 38 U/L Normal 16-61 [facility] Comment on above: Order Comment: N Performed By: #### L 503.6550, L501.4020, L3100.7870, L101.9900, L503.6150, L500.4050, L501.5200, L3400.4800, L501.6710, L100.0100 #### [facility] [address] [place], [address] AST [Catalytic activity/Vol] 22 U/L Normal 15-37 [facility] Comment on above: Order Comment: N Performed By: #### L 503.6550, L501.4020, L3100.7870, L101.9900, L503.6150, L500.4050, L501.5200, L3400.4800, L501.6710, L100.0100 #### [facility] [address] [place], [address] Bilirubin [Mass/Vol] 0.80 mg/dL Normal 0.20-1.00 [facility] Comment on above: Order Comment: N Result Comment: For patients on eltrombopag therapy, use of Dimension [place] TBIL is not recommended. Performed By: #### L 503.6550, L501.4020, L3100.7870, L101.9900, L503.6150, L500.4050, L501.5200, L3400.4800, L501.6710, L100.0100 #### [facility] [address] [place], [address] BUN/CRE 12.3 RATIO Normal 10-20 [facility] Comment on above: Order Comment: N Performed By: #### L 503.6550, L501.4020, L3100.7870, L101.9900, L503.6150, L500.4050, L501.5200, L3400.4800, L501.6710, L100.0100 #### [facility] [address] [place], [address] CA,Total 9.7 mg/dL Normal 8.5-10.1 [facility] Comment on above: Order Comment: N Performed By: #### L 503.6550, L501.4020, L3100.7870, L101.9900, L503.6150, L500.4050, L501.5200, L3400.4800, L501.6710, L100.0100 #### [facility] [address] [place], [address] Chloride [Moles/Vol] 105 mmol/L Normal 98-107 [facility] Comment on above: Order Comment: N Performed By: #### L 503.6550, L501.4020, L3100.7870, L101.9900, L503.6150, L500.4050, L501.5200, L3400.4800, L501.6710, L100.0100 #### [facility] [address] [place], [address] CO2 [Moles/Vol] 27.0 mmol/L Normal 21.0-32.0 [facility] Comment on above: Order Comment: N Performed By: #### L 503.6550, L501.4020, L3100.7870, L101.9900, L503.6150, L500.4050, L501.5200, L3400.4800, L501.6710, L100.0100 #### [facility] [address] [place], [address] Creatinine [Mass/Vol] 1.38 mg/dL High 0.70-1.30 [facility] Comment on above: Order Comment: N Result Comment: The validity of the calculated GFR GFRAA in patients over 70 years has not been determined. Clinical correlation is essential. Performed By: #### L 503.6550, L501.4020, L3100.7870, L101.9900, L503.6150, L500.4050, L501.5200, L3400.4800, L501.6710, L100.0100 #### [facility] [address] [place], [address] EST GFR - AA 70 mL/min Normal >60 [facility] Comment on above: Order Comment: N Result Comment: Afri can [place] GFR Calc Performed By: #### L 503.6550, L501.4020, L3100.7870, L101.9900, L503.6150, L500.4050, L501.5200, L3400.4800, L501.6710, L100.0100 #### [facility] [address] [place], [address] GAP 10 Normal 5-15 [facility] Comment on above: Order Comment: N Performed By: #### L 503.6550, L501.4020, L3100.7870, L101.9900, L503.6150, L500.4050, L501.5200, L3400.4800, L501.6710, L100.0100 #### [facility] [address] [place], [address] GFR/1.73 sq M.predicted among non-blacks MDRD (S/P/Bld) [Vol rate/Area] 58 mL/min/{1.73_m2} Low >60 [facility] Comment on above: Order Comment: N Result Comment: Non- GFR Calc Performed By: #### L 503.6550, L501.4020, L3100.7870, L101.9900, L503.6150, L500.4050, L501.5200, L3400.4800, L501.6710, L100.0100 #### [facility] [address] [place], [address] Globulin (S) [Mass/Vol] 3.0 g/dL Normal 2.2-4.2 [facility] Comment on above: Order Comment: N Performed By: #### L 503.6550, L501.4020, L3100.7870, L101.9900, L503.6150, L500.4050, L501.5200, L3400.4800, L501.6710, L100.0100 #### [facility] [address] [place], [address] Glucose [Mass/Vol] 103 mg/dL Normal 74-106 [facility] Comment on above: Order Comment: N Result Comment: Fast ing Glucose result from 100 to 125 mg/dL suggests IMPAIRED HOMEOSTASIS per A.D.A. criteria. Performed By: #### L 503.6550, L501.4020, L3100.7870, L101.9900, L503.6150, L500.4050, L501.5200, L3400.4800, L501.6710, L100.0100 #### [facility] [address] [place], [address] Potassium [Moles/Vol] 4.2 mmol/L Normal 3.5-5.1 [facility] Comment on above: Order Comment: N Performed By: #### L 503.6550, L501.4020, L3100.7870, L101.9900, L503.6150, L500.4050, L501.5200, L3400.4800, L501.6710, L100.0100 #### [facility] [address] [place], [address] Sodium [Moles/Vol] 142 mmol/L Normal 136-145 [facility] Comment on above: Order Comment: N Performed By: #### L 503.6550, L501.4020, L3100.7870, L101.9900, L503.6150, L500.4050, L501.5200, L3400.4800, L501.6710, L100.0100 #### [facility] [address] [place], [address] T PROT 7.4 g/dL Normal 6.4-8.2 [facility] Comment on above: Order Comment: N Performed By: #### L 503.6550, L501.4020, L3100.7870, L101.9900, L503.6150, L500.4050, L501.5200, L3400.4800, L501.6710, L100.0100 #### [facility] [address] [place], [address] Urea nitrogen [Mass/Vol] 17 mg/dL Normal 7-18 [facility] Comment on above: Order Comment: N Performed By: #### L 503.6550, L501.4020, L3100.7870, L101.9900, L503.6150, L500.4050, L501.5200, L3400.4800, L501.6710, L100.0100 #### [facility] [address] [place], [address] Free T3on 04-21-2024 Free T3 [Mass/Vol] 2.9 pg/mL Normal 2.18-3.98 [facility] Comment on above: Order Comment: 1 Performed By: #### L 503.6550, L501.4020, L3100.7870, L101.9900, L503.6150, L500.4050, L501.5200, L3400.4800, L501.6710, L100.0100 #### [facility] [address] [place], [address] Hemoglobin A1con 04-21-2024 HbA1c (Bld) [Mass fraction] 4.6 % Normal 3.8-5.6 [facility] Comment on above: Result Comment: Norm al < 5.7 % Prediabetic 5.7 - 6.4 % Diabetic >or= 6.5 % Please note range changes. Performed By: #### L 503.6550, L501.4020, L3100.7870, L101.9900, L503.6150, L500.4050, L501.5200, L3400.4800, L501.6710, L100.0100 #### [facility] [address] [place], [address] Lipid Profileon 04-21-2024 Cholesterol [Mass/Vol] 250 mg/dL High 200 [facility] Comment on above: Order Comment: N Result Comment: <200 mg/dL Desirable 200-240 mg/dL Borderline >240 mg/dL High Risk Performed By: #### L 503.6550, L501.4020, L3100.7870, L101.9900, L503.6150, L500.4050, L501.5200, L3400.4800, L501.6710, L100.0100 #### [facility] [address] [place], [address] Cholesterol in HDL [Mass/Vol] 51 mg/dL Normal [facility] Comment on above: Order Comment: N Result Comment: The drugs N-Acetylcysteine and Metamizole may falsely depress this assay. Reference Range HDL <40 mg/dL Low HDL Cholesterol HDL >or= 60 mg/dL High HDL Cholesterol Performed By: #### L 503.6550, L501.4020, L3100.7870, L101.9900, L503.6150, L500.4050, L501.5200, L3400.4800, L501.6710, L100.0100 #### [facility] [address] [place], [address] Cholesterol in LDL [Mass/Vol] 179 mg/dL High 0-130 [facility] Comment on above: Order Comment: N Performed By: #### L 503.6550, L501.4020, L3100.7870, L101.9900, L503.6150, L500.4050, L501.5200, L3400.4800, L501.6710, L100.0100 #### [facility] [address] [place], [address] Cholesterol in VLDL [Mass/Vol] 20 mg/dL Normal 5-40 [facility] Comment on above: Order Comment: N Performed By: #### L 503.6550, L501.4020, L3100.7870, L101.9900, L503.6150, L500.4050, L501.5200, L3400.4800, L501.6710, L100.0100 #### [facility] [address] [place], [address] Triglyceride [Mass/Vol] 100 mg/dL Normal [facility] Comment on above: Order Comment: N Result Comment: The drugs N-Acetylcysteine and Metamizole may falsely depress this assay. Serum Triglycerides Reference Interval Normal <150 mg/dL Borderline high 150 - 199 mg/dL High 200 - 499 mg/dL Very High > or = 500 mg/dL Performed By: #### L 503.6550, L501.4020, L3100.7870, L101.9900, L503.6150, L500.4050, L501.5200, L3400.4800, L501.6710, L100.0100 #### [facility] [address] [place], [address] Luteinizing Hormoneon 2023 LH 3.1 mIU/mL Normal [facility] Comment on above: Order Comment: 1 Result Comment: NORMAL REFERENCE RANGES FEMALE FOLLICULAR 1.9 - 26.2 mIU/mL MID-CYCLE PEAK 22.8 - 76.1 mIU/mL LUTEAL 0.6 - 16.6 mIU/mL POST-MENOPAUSAL ON MHT 1.1 - 52.4 mIU/mL NOT ON MHT 8.6 - 61.8 mIU/mL MALE 1.2 - 10.6 mIU/mL Performed By: #### L 503.6550, L501.4020, L3100.7870, L101.9900, L503.6150, L500.4050, L501.5200, L3400.4800, L501.6710, L100.0100 #### [facility] [address] [place], [address] T4 Free Directon 04-21-2024 T4 FREE DIRECT 1.13 ng/dL Normal 0.76-1.46 [facility] Comment on above: Order Comment: 1 Performed By: #### L 503.6550, L501.4020, L3100.7870, L101.9900, L503.6150, L500.4050, L501.5200, L3400.4800, L501.6710, L100.0100 #### [facility] [address] [place], [address] Thyroid Stim Hormone (TSH)on 04-21-2024 TSH 3.10 uIU/mL Normal 0.358-3.74 [facility] Comment on above: Order Comment: 1 Performed By: #### L 503.6550, L501.4020, L3100.7870, L101.9900, L503.6150, L500.4050, L501.5200, L3400.4800, L501.6710, L100.0100 #### [facility] [address] [place], [address] Absolute lymphocyte countOrd ered By: Cristina Cross on 07-07-2023 Lymphocytes Auto (Unsp spec) [#/Vol] 2.14 10*3/uL 0.83-4.51 [facility] Basophil percentageOrdered B y: Cristina Cross on 07-07-2023 Basophils/100 WBC (Bld) 0.8 % 0-1 [facility] Bilirubin [Mass/Vol] 0.30 mg/dL 0.20-1.00 [facility] Comment on above: For patients on eltr ombopag therapy, use of Dimension [place] TBIL is not recommended. Chloride [Moles/Vol] 101 mmol/L 98-107 [facility] Cholesterol [Mass/Vol] 197 mg/dL <200 [facility] Comment on above: <200 mg/dL Desirable 200-240 mg/dL Borderline >240 mg/dL High Risk Eosinophils/100 WBC (Bld) 6.6 % 0-5 [facility] Glucose [Mass/Vol] 118 mg/dL 74-106 [facility] Comment on above: Fasting Glucose resu lt from 100 to 125 mg/dL suggests IMPAIRED HOMEOSTASIS per A.D.A. criteria. Neutrophils (Bld) [#/Vol] 3.1 10*3/uL 2.0-7.7 [facility] Neutrophils/100 WBC (Bld) 50.6 % 47-70 [facility] Potassium [Moles/Vol] 4.3 mmol/L 3.5-5.1 [facility] Protein [Mass/Vol] 6.6 g/dL 6.4-8.2 [facility] Sodium [Moles/Vol] 139 mmol/L 136-145 [facility] Testosterone [Mass/Vol] 335.62 ng/dL [facility] Comment on above: CENTRAL 90% REFERENC E RANGES MALE AGE <50 197.44 - 669.58 ng/dL MALE AGE > or = 50 187.72 - 684.19 ng/dL FEMALE AGE <50 8.38 - 35.01 ng/dL FEMALE AGE > or = 50 <7.00 - 35.92 ng/dL Effective as of 05/28/21 Triglyceride [Mass/Vol] 166 mg/dL <199 [facility] Comment on above: The drugs N-Acetylcy steine and Metamizole may falsely depress this assay.Serum Triglycerides Reference Interval Normal <150 mg/dL Borderline high 150 - 199 mg/dL High 200 - 499 mg/dL Very High > or = 500 mg/dL WBC (Bld) [#/Vol] 6.0 10*3/uL 4.4-11.0 [facility] Blood erythrocytes count (nu mber/volume)Ordered By: Cristina Cross on 07-07-2023 RBC (Bld) [#/Vol] 5.79 10*6/uL 4.6-6.2 [facility] RBC (Bld) [#/Vol] 5.68 10*6/uL 4.14-5.80 [facility] Blood hemoglobin measurement (mass/volume)Ordered By: Cristina Cross on 07-07-2023 Hemoglobin (Bld) [Mass/Vol] 16.1 g/dL 13.0-16.5 [facility] Blood lymphocytes/100 leukoc ytesOrdered By: Cristina Cross on 07-07-2023 Lymphocytes/100 WBC (Bld) 35.5 % 19-41 [facility] Blood monocytes/100 leukocyt esOrdered By: Cristina Cross on 07-07-2023 Monocytes/100 WBC (Bld) 6.0 % 0-10 [facility] Blood platelet mean volumeOr dered By: Cristina Cross on 07-07-2023 Platelet mean volume (Bld) [Entitic vol] 8.6 fL 6.2-12.0 [facility] Determination of erythrocyte mean corpuscular volume (MCV)Ordered By: Cristina Cross on 07-07-2023 MCV (RBC) [Entitic vol] 86.4 fL 80-94 [facility] Erythrocyte [id number]-[id number] ate dehydrogenase (enzymatic activity/mass)Ordered By: Cristina Cross on 07-07-2023 G6PD (RBC) [Catalytic activity/Mass] 206 127-427 [facility] Comment on above: Result Units: U/10E1 2 RBC Please note reference interval changeWhen decreased, G-6-PD, Quant. values are associated withacute hemolytic anemia when deficient individuals areexposed to oxidative stress, such as with certainmedications (e.g., primaquine), infection, or ingestion offava beans. Caution: In patients with acute hemolysis(e.g., abnormally low RBC values), testing for G-6-PD maybe falsely normal because older erythrocytes with a higherenzyme deficiency have been hemolyzed. Young erythrocytesand reticulocytes have normal or near-normal enzymeactivity. Normal values of G-6-PD may be measured forseveral weeks following a hemolytic event. Hematocrit Auto (Bld) [Volum e fraction]Ordered By: Cristina Cross on 07-07-2023 Hematocrit (Bld) [Volume fraction] 50.0 % 40-54 [facility] - Chemistry and C hemistry - challengeOrdered By: Cristina Cross on 07-07-2023 ALP [Catalytic activity/Vol] 72 U/L 45-117 [facility] ALT [Catalytic activity/Vol] 91 U/L 16-61 [facility] CO2 [Moles/Vol] 30.0 mmol/L 21.0-32.0 [facility] Cobalamin (Vitamin B12) [Mass/Vol] 839 pg/mL 211-911 [facility] Free T4 [Mass/Vol] 1.15 ng/dL 0.76-1.46 [facility] Globulin (S) [Mass/Vol] 2.8 g/dL 2.2-4.2 [facility] Urea nitrogen/Creatinine [Mass ratio] 13.2 mg/mg 10-20 [facility] - Hematology and Cell countsOrdered By: Cristina Cross on 07-07-2023 Erythrocyte distribution width (RBC) [Entitic vol] 41.6 fL 35.1-43.9 [facility] Erythrocyte distribution width (RBC) [Ratio] 13.2 % 11.6-14.6 [facility] Immature granulocytes/100 WBC (Bld) 0.500 % 0.0-0.9 [facility] Comment on above: IG% - Immature Granu locytes (promyelocytes, myelocytes and metamyelocytes) > 1% indicates that a LEFT SHIFT is Present. MCH (RBC) [Entitic mass] 27.8 pg 27.0-32.0 [facility] Nucleated RBC/100 WBC (Bld) [Ratio] 0 % 0-5 [facility] MCHC Auto (RBC) [Mass/Vol]Or dered By: Cristina Cross on 07-07-2023 MCHC (RBC) [Mass/Vol] 32.2 g/dL 32-36 [facility] No Panel InformationOrdered By: Cristina Cross on 07-07-2023 Dehydroepiandrosterone Sulfate 244.0 ug/dL 71.6-375.4 [facility] Comment on above: Performed at: [facility] [id number] [place], [place] [id number] Director: Tomasz Marie PhD, Phone: [phone] at: - [facility] [id number] Director: Rashi Givens MD, Phone: [phone] Estimated GFR (MDRD) Amer 95 mL/min >60 [facility] Comment on above: GFR Calc Estimated GFR (MDRD) Non-Af Amer 78 mL/min >60 [facility] Comment on above: Non- GFR Calc Free Triiodothyronine (T3) pg/dL 2.7 pg/mL 2.18-3.98 [facility] Prostate Specific Antigen Comment . [facility] Comment on above: The percent free PSA is performed on a reflex basis onlywhen the total PSA is between 4.0 and 10.0 ng/mL. Prostate Specific Antigen Total 0.5 ng/mL 0.0-4.0 [facility] Comment on above: Sameer ECLIA methodol ogy.According to the [place] [employer], Serum PSAshould decrease and remain at undetectable levels afterradical prostatectomy. The AUA defines biochemicalrecurrence as an initial PSA value 0.2 ng/mL or greaterfollowed by a subsequent confirmatory PSA value 0.2 ng/mLor greater. Values obtained with different assay methods orkits cannot be used interchangeably. Results cannot beinterpreted as absolute evidence of the presence or absenceof malignant disease. Thyroid Stimulating Hormone (TSH) 3.33 uIU/mL 0.358-3.74 [facility] Vitamin D 25-Hydroxy 65.2 ng/mL [facility] Comment on above: Vitamin D 25(OH) Sta tus Range Deficiency <20 ng/mL (50nmol/L) Insufficiency 20 - 30 ng/mL (50 - 75 nmol/L) Sufficiency 30 - 100 ng/mL (75 - 250 nmol/L) Toxicity >100 ng/mL (>250 nmol/L) Platelets bldOrdered By: Adan Cross on 07-07-2023 Platelets (Bld) [#/Vol] 456 10*3/uL 150-450 [facility] Serum or plasma albumin jose r urement (mass/volume)Ordered By: Cristina Cross on 07-07-2023 Albumin [Mass/Vol] 3.8 g/dL 3.2-5.0 [facility] Serum or plasma albumin/glob ulin mass ratioOrdered By: Cristina Cross on 07-07-2023 Albumin/Globulin [Mass ratio] 1.4 {ratio} 0.9-2.4 [facility] Serum or plasma calcium jose r urement (mass/volume)Ordered By: Cristina Cross on 07-07-2023 Calcium [Mass/Vol] 8.8 mg/dL 8.5-10.1 [facility] Serum or plasma cholesterol in HDL measurement (mass/volume)Ordered By: Cristina Cross on 07-07-2023 Cholesterol in HDL [Mass/Vol] 45 mg/dL >40 [facility] Comment on above: The drugs N-Acetylcy steine and Metamizole may falsely depress this assay. Reference Range HDL <40 mg/dL Low HDL Cholesterol HDL >or= 60 mg/dL High HDL Cholesterol Serum or plasma cholesterol in VLDL measurement (mass/volume)Ordered By: Cristina Cross on 07-07-2023 Cholesterol in VLDL [Mass/Vol] 33 mg/dL 5-40 [facility] Serum or plasma creatinine m easurement (mass/volume)Ordered By: Cristina Cross on 07-07-2023 Creatinine [Mass/Vol] 1.06 mg/dL 0.70-1.30 [facility] Comment on above: The validity of the calculated GFR & GFRAA in patients over 70 years has not been determined. Clinical correlation is essential. Serum or plasma low density lipoprotein (LDL) cholesterol measurement (mass/volume)Ordered By: Cristina Cross on 07-07-2023 Cholesterol in LDL [Mass/Vol] 119 mg/dL 0-130 [facility] Serum or plasma urea nitroge n measurement (mass/volume)Ordered By: Cristina Cross on 07-07-2023 Urea nitrogen [Mass/Vol] 14 mg/dL 7-18 [facility] Thin prep Papanicolaou smear with manual screeningOrdered By: Cristina Cross on 07-07-2023 Thin prep Papanicolaou smear with manual screening 39 U/L 15-37 [facility] Thin prep Papanicolaou smear with manual screening 8 5-15 [facility] Whole blood hemoglobin A1c/t otal hemoglobin ratio (mass fraction)Ordered By: Cristina Cross on 07-07-2023 HbA1c (Bld) [Mass fraction] 5.3 % 3.8-5.6 [facility] Comment on above: Normal < 5.7 % Predi abetic 5.7 - 6.4 % Diabetic >or= 6.5 % Please note range changes. Absolute lymphocyte counton 02-01-2022 Lymphocytes Auto (Unsp spec) [#/Vol] 2.31 10*3/uL 0.83-4.51 [facility] Work Phone: Basophil percentageon 2021 Basophils/100 WBC (Bld) 0.7 % 0-1 [facility] Work Phone: Bilirubin [Mass/Vol] 0.40 mg/dL 0.20-1.00 [facility] Work Phone: Comment on above: For patients on eltr ombopag therapy, use of Dimension [place] TBIL is not recommended. Chloride [Moles/Vol] 107 mmol/L 98-107 [facility] Work Phone: Cholesterol [Mass/Vol] 220 mg/dL <200 [facility] Work Phone: Comment on above: <200 mg/dL Desirable 200-240 mg/dL Borderline >240 mg/dL High Risk Eosinophils/100 WBC (Bld) 8.9 % 0-5 [facility] Work Phone: Glucose [Mass/Vol] 88 mg/dL 74-106 [facility] Work Phone: Neutrophils (Bld) [#/Vol] 3.9 10*3/uL 2.0-7.7 [facility] Work Phone: Neutrophils/100 WBC (Bld) 52.1 % 47-70 [facility] Work Phone: [phone] Potassium [Moles/Vol] 4.3 mmol/L 3.5-5.1 [facility] Work Phone: [phone] Protein [Mass/Vol] 7.4 g/dL 6.4-8.2 [facility] Work Phone: [phone] Sodium [Moles/Vol] 137 mmol/L 136-145 [facility] Work Phone: [phone] Triglyceride [Mass/Vol] 121 mg/dL [facility] Work Phone: [phone] Comment on above: The drugs N-Acetylcy steine and Metamizole may falsely depress this assay.Serum Triglycerides Reference Interval Normal <150 mg/dL Borderline high 150 - 199 mg/dL High 200 - 499 mg/dL Very High > or = 500 mg/dL WBC (Bld) [#/Vol] 7.4 10*3/uL 4.4-11.0 [facility] Work Phone: Blood erythrocytes count (nu mber/volume)on 02-01-2022 RBC (Bld) [#/Vol] 5.48 10*6/uL 4.6-6.2 [facility] Work Phone: [phone] Blood hemoglobin measurement (mass/volume)on 02-01-2022 Hemoglobin (Bld) [Mass/Vol] 15.1 g/dL 13.0-16.5 [facility] Work Phone: Blood lymphocytes/100 leukoc yteson 02-01-2022 Lymphocytes/100 WBC (Bld) 31.2 % 19-41 [facility] Work Phone: Blood monocytes/100 leukocyt eson 02-01-2022 Monocytes/100 WBC (Bld) 6.8 % 0-10 [facility] Work Phone: Blood platelet mean volumeon 02-01-2022 Platelet mean volume (Bld) [Entitic vol] 8.9 fL 6.2-12.0 [facility] Work Phone: [phone] Determination of erythrocyte mean corpuscular volume (MCV)on 02-01-2022 MCV (RBC) [Entitic vol] 81.8 fL 80-94 [facility] Work Phone: [phone] Hematocrit Auto (Bld) [Volum e fraction]on 02-01-2022 Hematocrit (Bld) [Volume fraction] 44.8 % 40-54 [facility] Work Phone: [phone] Laboratory - Chemistry and C hemistry - challengeon 02-01-2022 ALP [Catalytic activity/Vol] 87 U/L 45-117 [facility] Work Phone: [phone] ALT [Catalytic activity/Vol] 33 U/L 16-61 [facility] Work Phone: [phone] CO2 [Moles/Vol] 26.0 mmol/L 21.0-32.0 [facility] Work Phone: [phone] Globulin (S) [Mass/Vol] 3.7 g/dL 2.2-4.2 [facility] Work Phone: [phone] Urea nitrogen/Creatinine [Mass ratio] 16.7 mg/mg 10-20 [facility] Work Phone: [phone] Laboratory - Hematology and Cell countson 02-01-2022 Erythrocyte distribution width (RBC) [Entitic vol] 36.6 fL 35.1-43.9 [facility] Work Phone: [phone] Erythrocyte distribution width (RBC) [Ratio] 12.3 % 11.6-14.6 [facility] Work Phone: [phone] Immature granulocytes/100 WBC (Bld) 0.300 % 0.0-0.9 [facility] Work Phone: [phone] Comment on above: IG% - Immature Granu locytes (promyelocytes, myelocytes and metamyelocytes) > 1% indicates that a LEFT SHIFT is Present. MCH (RBC) [Entitic mass] 27.6 pg 27.0-32.0 [facility] Work Phone: [phone] Nucleated RBC/100 WBC (Bld) [Ratio] 0 % 0-5 [facility] Work Phone: [phone] MCHC Auto (RBC) [Mass/Vol]on 02-01-2022 MCHC (RBC) [Mass/Vol] 33.7 g/dL 32-36 [facility] Work Phone: No Panel Informationon 02-01 Estimated GFR (MDRD) Amer 93 mL/min >60 [facility] Work Phone: Comment on above: GFR Calc Estimated GFR (MDRD) Non-Af Amer 77 mL/min >60 [facility] Work Phone: Comment on above: Non- GFR Calc Prostate Specific Antigen Screen 0.45 ng/mL 0.00-4.00 [facility] Work Phone: Comment on above: This test was perfor med using the TPSA assay method for [employer] chemistry system. Values obtained with differentassay methods cannot be used interchangably.When changing PSA assays in the course of monitoring apatient, additional sequential testing should be carriedout to confirm baseline values. Platelets bldon 02-01-2022 Platelets (Bld) [#/Vol] 356 10*3/uL 150-450 [facility] Work Phone: Serum or plasma albumin jose r urement (mass/volume)on 02-01-2022 Albumin [Mass/Vol] 3.7 g/dL 3.2-5.0 [facility] Work Phone: [phone] Serum or plasma albumin/glob ulin mass ratioon 02-01-2022 Albumin/Globulin [Mass ratio] 1.0 {ratio} 0.9-2.4 [facility] Work Phone: [phone] Serum or plasma calcium jose r urement (mass/volume)on 02-01-2022 Calcium [Mass/Vol] 9.3 mg/dL 8.5-10.1 [facility] Work Phone: [phone] Serum or plasma cholesterol in HDL measurement (mass/volume)on 02-01-2022 Cholesterol in HDL [Mass/Vol] 41 mg/dL [facility] Work Phone: Comment on above: The drugs N-Acetylcy steine and Metamizole may falsely depress this assay. Reference Range HDL <40 mg/dL Low HDL Cholesterol HDL >or= 60 mg/dL High HDL Cholesterol Serum or plasma cholesterol in VLDL measurement (mass/volume)on 02-01-2022 Cholesterol in VLDL [Mass/Vol] 24 mg/dL 5-40 [facility] Work Phone: Serum or plasma creatinine m easurement (mass/volume)on 02-01-2022 Creatinine [Mass/Vol] 1.08 mg/dL 0.70-1.30 [facility] Work Phone: Comment on above: The validity of the calculated GFR & GFRAA in patients over 70 years has not been determined. Clinical correlation is essential. Serum or plasma low density lipoprotein (LDL) cholesterol measurement (mass/volume)on 02-01-2022 Cholesterol in LDL [Mass/Vol] 155 mg/dL 0-130 [facility] Work Phone: Serum or plasma urea nitroge n measurement (mass/volume)on 02-01-2022 Urea nitrogen [Mass/Vol] 18 mg/dL 7-18 [facility] Work Phone: Thin prep Papanicolaou smear with manual screeningon 02-01-2022 Thin prep Papanicolaou smear with manual screening 20 U/L 15-37 [facility] Work Phone: Thin prep Papanicolaou smear with manual screening 4 5-15 [facility] Work Phone: Whole blood hemoglobin A1c/t otal hemoglobin ratio (mass fraction)on 02-01-2022 HbA1c (Bld) [Mass fraction] 5.5 % 3.8-5.6 [facility] Work Phone: Comment on above: Normal < 5.7 % Predi abetic 5.7 - 6.4 % Diabetic >or= 6.5 % Please note range changes. Laboratory - Microbiology an d Antimicrobial susceptibilityon 11-03-2021 SARS-CoV-2 (COVID-19) RNA FRANCISCO+probe Ql (Unsp spec) Detected Not Detect [facility] Work Phone: Comment on above: Normal Reference Ran ge: Not DetectedMethod:(RT-PCR) real-time reverse transcriptase PCRLuminex ZACHARY Instrument*The Food and Drug Administration (FDA) has issued an Emergency Use Authorization (EAU) for the ZACHARY SARS-CoV-2 Assay for the rapid detection of the virus that causes COVID-19. This test has been validated, but the FDAs independent review of this validation is pending.*Negative results do not preclude infection and should not be used as the sole basis for treatment or patient management. Optimum specimen types and timing for peak viral levels during infections caused by SARS-CoV-2 have not been determined. Collection of multiple specimens from the same patient may be necessary to detect the virus. The possibility of a false negative result should be considered if the patient has clinical presentation or has had recent exposure. COVID-19, MOLECULARon 2019 INTERNAL CONTROL (ABBOT ID) Pass Normal [facility] SARS-COV-2 (KLINE ID) Not Detected Normal Not Detected [facility] COVID-19, Molecularon 2019 Internal Control Pass [facility] Interpretation and review of laboratory results [facility] SARS-CoV-2 Not Detected Not Detected [facility] Vital Signs Date Time Vital Sign Value Performing Clinician Faci lity 09-14-2020 16:32-0500 BMI (Body Mass Index) 31.75 kg/m2 [facility] 09-14-2020 16:32-0500 Body Temperature 98.2 [degF] [facility] 09-14-2020 16:32-0500 Body weight 97.52 kg [facility] 09-14-2020 16:32-0500 Height 175.3 cm [facility] 09-14-2020 16:32-0500 Pulse (Heart Rate) 80 /min [facility] 09-14-2020 16:32-0500 Pulse Oximetry 98 % [facility] 09-14-2020 16:32-0500 Respiratory Rate 16 /min [facility] Encounters Encounter Date Encounter Type Care Provider Facility Start: 02-27-2025 ambulatory Anmol Dewitt lity:[facility] Start: 12-23-2024 End: 12-23-2024 ambulatory Anmol Raza Facility:[facility] Start: 11-07-2024 End: 11-07-2024 ambulatory Cristina Cross NP Facility:[facility] Start: 10-18-2024 End: 10-18-2024 ambulatory CRISTINA HIDE OR SKIN BUFFER [facility] Start: 10-15-2024 End: 10-15-2024 ambulatory Cristina K [employer] SHEEP OR CALF GRADER Facility:[facility] Start: 10-13-2024 End: 10-13-2024 ambulatory CRISTINA HIDE OR SKIN BUFFER [facility] Start: 10-13-2024 End: 10-13-2024 ambulatory Cristina K [employer] SHEEP OR CALF GRADER Facility:[facility] Start: 09-28-2024 End: 09-28-2024 ambulatory Anmol Raza Facility:[facility] Start: 09-28-2024 End: 09-28-2024 ambulatory Cristina Cross SHEEP OR CALF GRADER Facility:[facility] Start: 08-25-2024 End: 08-25-2024 ambulatory Cristina Cross SHEEP OR CALF GRADER Facility:[facility] Start: 04-21-2024 ambulatory Anmoldeshawn Raza Faci lity:[facility] Start: 07-07-2023 End: 07-07-2023 ambulatory [facility] Work Phone: Start: 07-07-2023 End: 07-07-2023 Patient encounter procedure [facility], Specimen Work Phone: Start: 02-01-2022 End: 02-01-2022 Patient encounter procedure [facility], Specimen Start: 11-03-2021 Registered Referred [facility], Specimen Start: 09-14-2020 End: 09-14-2020 Patient encounter procedure ANDREW RAZA [facility] Start: 09-14-2020 End: 09-14-2020 Office outpatient new 30 minutes Max Arias Work Phone: [facility] [place] Comment on above: Upper respiratory tr act infection, unspecified type (Primary Dx); Suspected Covid-19 Virus Infection Procedures Date Procedure Procedure Detail Performing Clinician Start: 09-14-2020 COVID-19, MOLECULAR Shilpa Arias Work Phone: Plan of Treatment Date Care Activity Detail Author Start: 1991 Hepatitis C antibody , confirmatory test Hepatitis C Screening [facility] Start: 01-05-1988 HIV screening HIV Screening [facility] Start: 01-05-1976 History and physical examination, annual for health maintenance Wellness Visit [facility] Start: 1973 Prostate specific an tigen measurement PSA Level [facility] Start: 1973 Tetanus vaccination Tetanus: Every 1 0yrs [facility] Covid-19/Influenza O rder Algorithm Covid-19/Influenza Order Algorithm Microbiology Routine Upper respiratory tract infection, unspecified type Suspected Covid-19 Virus Infection Ordered: 09/14/2020 [facility] Comment on above: Ordered: 09/14/2020 Immunizations Immunization Date Immunization Notes Care Provider Fa jeanette 10-25-2019 tetanus toxoid, redu gentry diphtheria toxoid, and acellular pertussis vaccine, adsorbed [facility] Payers Date Payer Category Payer Private Health Insurance [id number] 2024 Self-pay [id number] 2020 Unknown MMO MED [employer] S UPER[employer] PPO [id number] 2020-Present [id number] 2020 Unknown [id number] 1973 Unknown [id number] 03 1973 Unknown [id number] 51 1973 Unknown [id number] 51 Unknown [id number] Unknown [id number] 62 Unknown [id number] 62 Unknown [id number] 62 Unknown [id number] 62 Unknown [id number] 62 Unknown [id number] 62 Unknown [id number] 62 Unknown [id number] 62 Unknown [id number] 62 Social History Date Type Detail Facility Start: 09-14-2020 Tobacco smoking stat [facility] Never smoker [facility] Start: 09-14-2020 Tobacco use and exposure Never used [facility] Start: 09-14-2020 Alcohol intake Ex-drinker (finding) [facility] Sex Assigned At Not on file [facility] Exposure to SARS-CoV -2 (event) Yes [facility] Start: 05-08-2021 Tobacco smoking stat [facility] Unknown if ever smoked [facility] Start: 1975 Sex Assigned At Male [facility] Medical Equipment Procedure Code Equipment Code Equipment Origin al Text Equipment Identifier Dates Repair, hernia, umbilical, using mesh MESH,[facility]LEX ST [facility] 6.4CM [facility] Start: 05-10-2021 Repair, hernia, umbilical, using mesh MESH,[facility]LEX [facility] 6.4CM [facility] Start: 05-10-2021 Evaluation note Note Date & Type Note Facility Evaluation note No assessment information availa [facility] Work Phone: Instructions * Patient Instructions* Max Arias CNP - 09/14/2020 5:09 PM EST Upper Respiratory Infection (Cold): Care Instructions Your Care Instructions An upper respiratory infection, or URI, is an infection of the nose, sinuses, or throat. URIs are spread by coughs, sneezes, and direct contact. The common cold is the most frequent kind of URI. The flu and sinus infections are other kinds of URIs. Almost all URIs are caused by viruses. Antibiotics won't cure them. But you can treat most infections with home care. This may include drinking lots of fluids and taking ztup-mid-ehnfxsi pain medicine. You will probably feel better in 4 to 10 days. The doctor has checked you carefully, but problems can develop later. If you notice any problems ornew symptoms, get medical treatment right away. Follow-up care is a fagan part of your treatment and safety. Be sure to make and go to all appointments, and call your doctor if you are having problems. It's also a good idea to know your test resultsand keep a list of the medicines you take. How can you care for yourself at home? To prevent dehydration, drink plenty of fluids, enough so that your urine is light yellow or clear like water. Choose water and other caffeine-free clear liquids until you feel better. If you have kidney, heart, or liver disease and have to limit fluids, talk with your doctor before you increase the amount of fluids you drink. Take an lhcr-qnt-qbdalpu pain medicine, such as acetaminophen (Tylenol), ibuprofen (Advil, Motrin),or naproxen (Aleve). Read and follow all instructions on the label. Before you use cough and cold medicines, check the label. These medicines may not be safe for youngchildren or for people with certain health problems. Be careful when taking obme-dsw-fxxhqoo cold or flu medicines and Tylenol at the same time. Many ofthese medicines have acetaminophen, which is Tylenol. Read the labels to make sure that you are nottaking more than the recommended dose. Too much acetaminophen (Tylenol) can be harmful. Get plenty of rest. Do not smoke or allow others to smoke around you. If you need help quitting, talk to your doctor about stop-smoking programs and medicines. These can increase your chances of quitting for good. When should you call for help? Call 911 anytime you think you may need emergency care. For example, call if: You have severe trouble breathing. Call your doctor now or seek immediate medical care if: You seem to be getting much sicker. You have new or worse trouble breathing. You have a new or higher fever. You have a new rash. Watch closely for changes in your health, and be sure to contact your doctor if: You have a new symptom, such as a sore throat, an earache, or sinus pain. You cough more deeply or more often, especially if you notice more mucus or a change in the color of your mucus. You do not get better as expected. Where can you learn more? Log into your personal health record on [email or web address] and enter K520 in the Education box to learn more about Upper Respiratory Infection (Cold): Care Instructions. Current as of: December 26, 2019 Content Version: 12.6 [employer]. Care instructions adapted under license by your healthcare professional. If you have questions about a medical condition or this instruction, always ask your healthcare professional. [employer] disclaims any warranty or liability for your use of this information. [facility] COVID-19 Post-swabbing Instructions We will do our best to update you as soon as we receive your test results, but if we had to send your test to be run at the lab, you may see the results on [employer] or receive a call from [facility] before we are able to contact you. You should receive a call from our COVID-19 results provider as soon as possible. If you test POSITIVE for COVID-19: Isolate until: - it has been 10 days since you developed symptoms AND - you have been without a fever (100.4 F) for at least 24 hours without the use of fever reducing medication AND - your symptoms are improving Isolation is when you test positive for COVID-19 and is meant to keep the infected person away fromall others, even in their own home. If you live with others, stay in a specific sick room or area and away from other people or animals, including pets. Use a separate bathroom, if available. Seek emergency medical care immediately if you develop worsening warning signs including: - trouble breathing - persistent pain or pressure in the chest - new confusion - inability to wake or stay awake - bluish lips or face It is not recommended by the CDC to have another COVID-19 test done in order to discontinue isolation or return to work/school. We can provide return to work and school documentation as needed. If you test NEGATIVE for COVID-19: If you are under a 14 day quarantine because of significant exposure defined as close contact with someone that has a laboratory confirmed infection from COVID- 19 or that person was diagnosed by a medical professional, then a negative COVID-19 test does not clear you from the 14 day quarantine. Youwere likely not clinically infectious at the time of the test. This does not mean that you will notget sick and develop symptoms. It is possible that you were in the early phase of the infection at the time of your test and you could be positive later. For these reasons: 1) If the test was due to having symptoms WITH significant exposure, you should remain in quarantine: - for the full 14 days AND - you have been without a fever (100.4 F) for at least 24 hours without the use of fever reducing medication AND - your symptoms are improving If you are unable to separate yourself completely from the COVID-19 positive person (i.e. parent caring for a child), CDC guidelines recommend you quarantine for 24 days (10 days from symptom onset of the COVID positive person PLUS 14 additional days). 2) If the test was due to symptoms WITHOUT significant exposure, you may return to work/school if: - you have been without a fever (100.4 F) for at least 24 hours without the use of fever reducing medication AND - your symptoms are improving When Do I Self-Quarantine? You should quarantine if you have had a significant exposure which is defined as having been in close contact (as defined below) with someone that has a laboratory confirmed infection from COVID-19 or that person was diagnosed by a medical professional. This includes contact within 48 hours prior to when the COVID-19 positive person developed symptoms. - Quarantine is used to keep someone who might have been exposed to COVID-19 away from others. - Quarantine helps prevent spread of disease that can occur before a person knows they are sick or if they are infected with the virus without feeling symptoms. - People in quarantine should stay home, separate themselves from others, monitor their health, andfollow directions from their state or local health department. What counts as close contact? - You were within 6 feet of someone who has COVID-19 for at least 15 minutes - You provided care at home to someone who is sick with COVID-19 - You had direct physical contact with the person (touched, hugged, or kissed them) - You shared eating or drinking utensils - They sneezed, coughed, or somehow got respiratory droplets on you When and How Will I Get Results? Tests performed in the clinic will be available within 15-20 minutes from initiation of test. If your test was sent out to the lab for testing, it could take anywhere from 1-5 days after your specimen is collected. The provider/practice who placed the order for your test will notify you of your results. - If you have an active [employer] account, and your COVID-19 test is negative (not detected), then you will be notified through your [employer] account. You should call the urgent care if you have any further questions. - If your COVID-19 test is positive (detected), you will receive a phone call to discuss your results and answer any questions you might have at that time. Please make sure [facility] has your updated phone number so we can contact you. [facility] will notify the [facility] of any positive results to comply with state regulations. What Happens After I Get Tested if I Develop Worsening COVID-19 Symptoms? All patients should self-quarantine at home until they receive their test results. While self-quarantining, contact your PCP or return to the urgent care if you develop any of the following: - A fever of 103 degrees F (39.4 C) or higher - A fever that lasts more than 3 days without medication - A fever that returns after being gone for more than 24 hours - Chest pain or difficulty breathing - A worsening of current symptoms For work concerns, please contact your employer's HR department. How Do I Self-Quarantine? - Stay home until 14 days after last exposure and maintain social distance (at least 6 feet) from others at all times - Avoid contact with people at higher risk for severe illness from COVID-19 - Self-monitor for symptoms: - Check temperature twice a day - Watch for fever (100.4F or higher), cough, shortness of breath, or other CDC recognized symptoms of COVID-19 If I test positive, what about those with which I have had close contact (household members, partners, close friends, etc)? Anyone with close contact (as defined above) within 48 hours prior to when the COVID-19 positive person developed symptoms should self-quarantine for 14 days as above. What Do I Do If I am Sick? Stay Home: If you are sick, stay home from work, school, public places, and social gatherings Social Distance: maintain 6 feet of distance from other people. Monitor Your Symptoms: If you develop fever, shortness of breath, confusion, or any respiratory symptoms, please notify your doctor immediately Cover Your Cough: Cough and sneeze into your shirt sleeve or inner elbow. Do not cough into your hands or into the air. If available, cough into a tissue and throw it into a trash can. Wash Your Hands: Wash hands often with soap and warm water and/or alcohol based hand donation specialist, scrubbing your hands for at least 20 seconds. Wash your hands after sneezing or coughing, after going to the bathroom, and before eating or drinking. Wear a Mask: Wear a face mask when around others. Always wear a face mask (if able) if you have to leave your home Don't Touch: avoid touching your eyes, nose, and mouth Don't Share: avoid sharing items with others as they can spread infection Call First: If you do need to seek urgent medical care, call the facility first to let them know you are on your way Other COVID Questions? CDC - https://www.cdc.gov/coronavirus/2019-ncov/index.html - https://www.cdc.gov/coronavirus/2019-ncov/em-gxo-qhx-sick/quarantine.html [place] Department of Health - Website: https://coronavirus.[place].gov/wps/portal/gov/covid-19/home - Hotline: 935-5-ZSS-ODH (663-887-3699) [facility]: https://blog.[employer]/series/zugzy-02-qtgsjcjmcei-toolkit/ Thank you for choosing [facility] for your health care needs today. You will be notified of your result today. You will be given further instructions at that time. ER for high fever, shaking chills, vomiting, chest pain, abdominal pain, difficulty breathing or an symptom of concern. documented in this encounter History of Present Illness * Bell Styles LPN - 09/14/2020 6:10 PM EST Patient notified by phone of negative COVID result. * Max Arias CNP - 09/14/2020 4:54 PM EST Patient Name: [facility] Location: [address] [facility] [id number] Date Of : Date Of Visit: 1975 09/14/2020 MRN# Provider: [id number] Max Arias CNP Chief Complaint Patient presents with Sore Throat X 2 DAYS, SON + Headache Chills Assessment & Plan 1. Upper respiratory tract infection, unspecified type Covid-19/Influenza Order Algorithm COVID-19, Molecular 2. Suspected Covid-19 Virus Infection Covid-19/Influenza Order Algorithm COVID-19, Molecular No follow-ups on file. Medical Decision Making Client is non-toxic in NAD. COVID pending. Standard work note. Additional Clinical Comments See AVS Influenza Immunization Patient UTD. Flu shot documented in chart under Health Maintenance. [facility] COVID-19 Mask Status: Does the patient have classic COVID-19 symptoms? Yes, the patient has COVID-19 symptoms, the patient WAS wearing a mask during the visit, I (the provider) WAS wearing full PPE (N95 mask, gown, gloves, and face shield) during the visit. and [employer] Visit was utilized for this patient visit. Patient read general consent to treat, and was then asked if he/she had any questions, which were all answered satisfactorily, and patient consented verbally. Consent at registration. Subjective 45 y.o. male presents with Sore Throat (X 2 DAYS, SON +), Headache, and Chills ST, [place] and chills x 2 days. Son is positive for COVID. URI This is a new problem. The current episode started yesterday. The problem has been gradually worsening. There has been no fever. Associated symptoms include headaches and a sore throat. Pertinent negatives include no abdominal pain, chest pain, congestion, coughing, diarrhea, ear pain, nausea, plugged ear sensation, rash, rhinorrhea, sneezing, vomiting or wheezing. He has tried nothing for the symptoms. Review Of Systems Review of Systems Constitutional: Positive for chills. Negative for activity change, appetite change, diaphoresis, fatigue and fever. HENT: Positive for sore throat. Negative for congestion, ear pain, rhinorrhea, sinus pressure and sneezing. Respiratory: Negative for cough, chest tightness, shortness of breath and wheezing. Cardiovascular: Negative for chest pain. Gastrointestinal: Negative for abdominal pain, diarrhea, nausea and vomiting. Genitourinary: Normal urination. Musculoskeletal: Positive for myalgias. Skin: Negative for rash. Neurological: Positive for headaches. Medical History Past Medical History: Diagnosis Date Asthma Depression Past Surgical History: Procedure Laterality Date ADENOIDECTOMY NASAL SEPTUM SURGERY There is no problem list on file for this patient. Social History Social History Tobacco Use Smoking status: Never Smoker Smokeless tobacco: Never Used Substance Use Topics Alcohol use: Not Currently Drug use: Never Family History History reviewed. No pertinent family history. Objective Physical Exam Pulse 80 Temp 98.2 F (36.8 C) (Oral) Resp 16 Ht 5' 9 Wt 97.5 kg (215 lb) SpO2 98% BMI 31.75 kg/m Vision/Hearing Exam:No exam data present Physical Exam Vitals signs and nursing note reviewed. Exam conducted with a inside tester present. Constitutional: General: He is not in acute distress. Appearance: Normal appearance. He is not ill-appearing, toxic-appearing or diaphoretic. HENT: Head: Normocephalic and atraumatic. Right Ear: Tympanic membrane, ear canal and external ear normal. Left Ear: Tympanic membrane, ear canal and external ear normal. Nose: Nose normal. Mouth/Throat: Mouth: Mucous membranes are moist. Cardiovascular: Rate and Rhythm: Normal rate and regular rhythm. Heart sounds: Normal heart sounds. Pulmonary: Effort: Pulmonary effort is normal. Breath sounds: Normal breath sounds. Skin: General: Skin is warm and dry. Neurological: Mental Status: He is alert and oriented to person, place, and time. Psychiatric: Mood and Affect: Mood normal. Procedure Notes Procedures Results Recent Results (from the past 168 hour(s)) COVID-19, Molecular Collection Time: 09/14/20 6:08 PM Specimen: Nasopharyngeal; Swab Result Value Ref Range SARS-CoV-2 Not Detected Not Detected Internal Control Pass No orders to display Orders Placed This Visit Orders Placed This Encounter Procedures Covid-19/Influenza Order Algorithm COVID-19, Molecular Medication List At End Of Visit Current Outpatient Medications Medication Sig Dispense Refill Dulera 200-5 mcg/actuation HFAA INHALE 2 PUFFS BY MOUTH and into the lungs TWICE DAILY DULoxetine (CYMBALTA) 60 MG capsule Take 60 mg by mouth daily . lamoTRIgine (LAMICTAL) 200 MG tablet Take 200 mg by mouth daily . No current facility-administered medications for this visit. Patient Instructions Upper Respiratory Infection (Cold): Care Instructions Your Care Instructions An upper respiratory infection, or URI, is an infection of the nose, sinuses, or throat. URIs are spread by coughs, sneezes, and direct contact. The common cold is the most frequent kind of URI. The flu and sinus infections are other kinds of URIs. Almost all URIs are caused by viruses. Antibiotics won't cure them. But you can treat most infections with home care. This may include drinking lots of fluids and taking zgxf-vws-lwxndlf pain medicine. You will probably feel better in 4 to 10 days. The doctor has checked you carefully, but problems can develop later. If you notice any problems ornew symptoms, get medical treatment right away. Follow-up care is a fagan part of your treatment and safety. Be sure to make and go to all appointments, and call your doctor if you are having problems. It's also a good idea to know your test resultsand keep a list of the medicines you take. How can you care for yourself at home? To prevent dehydration, drink plenty of fluids, enough so that your urine is light yellow or clear like water. Choose water and other caffeine-free clear liquids until you feel better. If you have kidney, heart, or liver disease and have to limit fluids, talk with your doctor before you increase the amount of fluids you drink. Take an nhyn-pci-gtdydqc pain medicine, such as acetaminophen (Tylenol), ibuprofen (Advil, Motrin),or naproxen (Aleve). Read and follow all instructions on the label. Before you use cough and cold medicines, check the label. These medicines may not be safe for youngchildren or for people with certain health problems. Be careful when taking bzyu-plq-cnxnxpa cold or flu medicines and Tylenol at the same time. Many ofthese medicines have acetaminophen, which is Tylenol. Read the labels to make sure that you are nottaking more than the recommended dose. Too much acetaminophen (Tylenol) can be harmful. Get plenty of rest. Do not smoke or allow others to smoke around you. If you need help quitting, talk to your doctor about stop-smoking programs and medicines. These can increase your chances of quitting for good. When should you call for help? Call 911 anytime you think you may need emergency care. For example, call if: You have severe trouble breathing. Call your doctor now or seek immediate medical care if: You seem to be getting much sicker. You have new or worse trouble breathing. You have a new or higher fever. You have a new rash. Watch closely for changes in your health, and be sure to contact your doctor if: You have a new symptom, such as a sore throat, an earache, or sinus pain. You cough more deeply or more often, especially if you notice more mucus or a change in the color of your mucus. You do not get better as expected. Where can you learn more? Log into your personal health record on https://[employer] and enter K520 in the Education box to learn more about Upper Respiratory Infection (Cold): Care Instructions. Current as of: December 26, 2019 Content Version: 12.6 [employer]. Care instructions adapted under license by your healthcare professional. If you have questions about a medical condition or this instruction, always ask your healthcare professional. [employer] disclaims any warranty or liability for your use of this information. [facility] COVID-19 Post-swabbing Instructions We will do our best to update you as soon as we receive your test results, but if we had to send your test to be run at the lab, you may see the results on [employer] or receive a call from [facility] before we are able to contact you. You should receive a call from our COVID-19 results provider as soon as possible. If you test POSITIVE for COVID-19: Isolate until: - it has been 10 days since you developed symptoms AND - you have been without a fever (100.4 F) for at least 24 hours without the use of fever reducing medication AND - your symptoms are improving Isolation is when you test positive for COVID-19 and is meant to keep the infected person away fromall others, even in their own home. If you live with others, stay in a specific sick room or area and away from other people or animals, including pets. Use a separate bathroom, if available. Seek emergency medical care immediately if you develop worsening warning signs including: - trouble breathing - persistent pain or pressure in the chest - new confusion - inability to wake or stay awake - bluish lips or face It is not recommended by the CDC to have another COVID-19 test done in order to discontinue isolation or return to work/school. We can provide return to work and school documentation as needed. If you test NEGATIVE for COVID-19: If you are under a 14 day quarantine because of significant exposure defined as close contact with someone that has a laboratory confirmed infection from COVID- 19 or that person was diagnosed by a medical professional, then a negative COVID-19 test does not clear you from the 14 day quarantine. Youwere likely not clinically infectious at the time of the test. This does not mean that you will notget sick and develop symptoms. It is possible that you were in the early phase of the infection at the time of your test and you could be positive later. For these reasons: 1) If the test was due to having symptoms WITH significant exposure, you should remain in quarantine: - for the full 14 days AND - you have been without a fever (100.4 F) for at least 24 hours without the use of fever reducing medication AND - your symptoms are improving If you are unable to separate yourself completely from the COVID-19 positive person (i.e. parent caring for a child), CDC guidelines recommend you quarantine for 24 days (10 days from symptom onset of the COVID positive person PLUS 14 additional days). 2) If the test was due to symptoms WITHOUT significant exposure, you may return to work/school if: - you have been without a fever (100.4 F) for at least 24 hours without the use of fever reducing medication AND - your symptoms are improving When Do I Self-Quarantine? You should quarantine if you have had a significant exposure which is defined as having been in close contact (as defined below) with someone that has a laboratory confirmed infection from COVID-19 or that person was diagnosed by a medical professional. This includes contact within 48 hours prior to when the COVID-19 positive person developed symptoms. - Quarantine is used to keep someone who might have been exposed to COVID-19 away from others. - Quarantine helps prevent spread of disease that can occur before a person knows they are sick or if they are infected with the virus without feeling symptoms. - People in quarantine should stay home, separate themselves from others, monitor their health, andfollow directions from their state or local health department. What counts as close contact? - You were within 6 feet of someone who has COVID-19 for at least 15 minutes - You provided care at home to someone who is sick with COVID-19 - You had direct physical contact with the person (touched, hugged, or kissed them) - You shared eating or drinking utensils - They sneezed, coughed, or somehow got respiratory droplets on you When and How Will I Get Results? Tests performed in the clinic will be available within 15-20 minutes from initiation of test. If your test was sent out to the lab for testing, it could take anywhere from 1-5 days after your specimen is collected. The provider/practice who placed the order for your test will notify you of your results. - If you have an active [employer] account, and your COVID-19 test is negative (not detected), then you will be notified through your [employer] account. You should call the urgent care if you have any further questions. - If your COVID-19 test is positive (detected), you will receive a phone call to discuss your results and answer any questions you might have at that time. Please make sure [facility] has your updated phone number so we can contact you. [facility] will notify the [facility] of any positive results to comply with state regulations. What Happens After I Get Tested if I Develop Worsening COVID-19 Symptoms? All patients should self-quarantine at home until they receive their test results. While self-quarantining, contact your PCP or return to the urgent care if you develop any of the following: - A fever of 103 degrees F (39.4 C) or higher - A fever that lasts more than 3 days without medication - A fever that returns after being gone for more than 24 hours - Chest pain or difficulty breathing - A worsening of current symptoms For work concerns, please contact your employer's HR department. How Do I Self-Quarantine? - Stay home until 14 days after last exposure and maintain social distance (at least 6 feet) from others at all times - Avoid contact with people at higher risk for severe illness from COVID-19 - Self-monitor for symptoms: - Check temperature twice a day - Watch for fever (100.4F or higher), cough, shortness of breath, or other CDC recognized symptoms of COVID-19 If I test positive, what about those with which I have had close contact (household members, partners, close friends, etc)? Anyone with close contact (as defined above) within 48 hours prior to when the COVID-19 positive person developed symptoms should self-quarantine for 14 days as above. What Do I Do If I am Sick? Stay Home: If you are sick, stay home from work, school, public places, and social gatherings Social Distance: maintain 6 feet of distance from other people. Monitor Your Symptoms: If you develop fever, shortness of breath, confusion, or any respiratory symptoms, please notify your doctor immediately Cover Your Cough: Cough and sneeze into your shirt sleeve or inner elbow. Do not cough into your hands or into the air. If available, cough into a tissue and throw it into a trash can. Wash Your Hands: Wash hands often with soap and warm water and/or alcohol based hand donation specialist, scrubbing your hands for at least 20 seconds. Wash your hands after sneezing or coughing, after going to the bathroom, and before eating or drinking. Wear a Mask: Wear a face mask when around others. Always wear a face mask (if able) if you have to leave your home Don't Touch: avoid touching your eyes, nose, and mouth Don't Share: avoid sharing items with others as they can spread infection Call First: If you do need to seek urgent medical care, call the facility first to let them know you are on your way Other COVID Questions? CDC - https://www.cdc.gov/coronavirus/2019-ncov/index.html - https://www.cdc.gov/coronavirus/2019-ncov/ah-drl-zch-sick/quarantine.html [place] Department of Health - Website: https://coronavirus.[place].gov/wps/portal/gov/covid-19/home - Hotline: 601-5-VCJ-ODH (576-985-5047) [facility]: https://blog.[employer]/series/kccpu-08-kkpuhioadag-toolkit/ Thank you for choosing [facility] for your health care needs today. You will be notified of your result today. You will be given further instructions at that time. ER for high fever, shaking chills, vomiting, chest pain, abdominal pain, difficulty breathing or an symptom of concern. 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 No May 08, 2021 11:14am Summary Purpose Family History No Family History Records Found Relationship Condition Age at Onset Recorded Date/T ana father Diabetes mellitus Unknown Malignant neoplasm Unknown mother Diabetes mellitus Unknown Hypertension Unknown Disorder of thyroid Unknown Rheumatoid arthritis Unknown Additional Source Comments Reason for Visit (unrecogniz ed section and content) Reason Comments Sore Throat X 2 DAYS, SON + Headache Chills (unrecognized sect ion and content) No Status Records FoundNo Status Records FoundNo Status Records Found INFORMATION SOURCE (unrecogn ized section and content) DATE CREATED AUTHOR 09/14/[address] [facility] DATE CREATED AUTHOR AUTHOR'S ORGANIZ ATION 10/20/2024 [facility] DATE CREATED AUTHOR AUTHOR'S ORGANIZ ATION 03/08/2025 [facility] Goals (unrecognized section and content) Goals may be documented in a n alternate sectionGoals may be documented in an alternate section Care Teams (unrecognized sec tion and content) Team Status: Active Member Role Status Dates Dr. Anmol Raza MD Family Provider Active Dr. Anmol Raza MD Primary Care Provider Felipe dickinson Team Status: Inactive Member Role Status Dates Dr. Anmol Raza MD Primary Care Provider [facility] SHEEP OR CALF GRADER, SHEEP OR CALF GRADER-C Attending Provider, [facility] Provider Active FOR RECORDS PERTAINING TO PATIENTS WHO ARE OR HAVE BEEN ENROLLED IN A CHEMICAL DEPENDENCY/SUBSTANCEABUSE PROGRAM, SOME INFORMATION MAY BE OMITTED. This clinical summary was aggregated from multiple sources. Caution should be exercised in using it in the provision of clinical care. This summary normalizes information from multiple sources, and as a consequence, information in this document may materially change the coding, format and clinical context of patient data. In addition, data may be omitted in some cases. CLINICAL DECISIONS SHOULD BE BASED ON THE PRIMARY CLINICAL RECORDS. [employer] [facility]. provides no warranty or guarantee of the accuracy or completeness of information in this document.
== END ==
LOC: LABSPEC 13:47
PROVIDERS: PCP Family Medicine; Referring Provider Nurse Practitioner Family; Visit Provider Nurse Practitioner Family
DX: R53.82 Chronic fatigue, unspecified (principal)
CPT/HCPCS: 85025